=== PATIENT | female | born 1955 | race Caucasian/White ===

== ENCOUNTER → 2024-03-31 12:54 | Outpatient (REF) | payer MEDICARE, SELFPAY | LOC: RAD 12:54 | PROVIDERS: ATTENDING PHYSICIAN Surgery Vascular Surgery; FAMILY PHYSICIAN Family Medicine | DX: I73.9 Peripheral vascular disease, unspecified (principal) | CPT/HCPCS: 93880; 93922; 93925; 93978 ==

== ENCOUNTER → 2024-05-11 13:12 | Outpatient (REF) | payer MEDICARE, SELFPAY | LOC: WDC 13:12 | PROVIDERS: ATTENDING PHYSICIAN Family Medicine | DX: Z12.31 Encounter for screening mammogram for malignant neoplasm of breast (principal) | CPT/HCPCS: 77063; 77067 ==

== ENCOUNTER 2024-05-19 23:49 | Inpatient (IN) | payer MEDICARE, SELFPAY ==
[2024-05-19 15:46] VITALS: BP 140/53
--- NOTE | 2024-05-19 17:02 | ED.GENMED ---
History of Present Illness
General
Chief Complaint: Bowel Problem
Source: patient and family
Exam Limitations: none
Time Seen by Provider: 05/19/24 16:38
Nursing documentation reviewed up to this point in time: agreed with
History of Present Illness
History of Present Illness:
Patient is a 68-year-old female past medical history of COPD anemia CAD hyperlipidemia, anemia right femoral indirect ring presents to the ER for evaluation of constipation. She reports for the past several days she has had a lot of hard stool.
She felt like there was a baseball sized amount of stool in her rectum. She has taken Ducolax and Metamucil and has been passing small amount of stool at time and in fact prior to my exam past hard stool in the bathroom here in the ER. She does
report that last night she noticed her stools with very dark. She is on Xarelto. She denies any nausea but does complain abdominal pain and soreness in her rectum.
Review of Systems
Review of Systems
Allergies reviewed?: Yes
All Other Systems: ROS reviewed and negative except as documented in HPI and ROS
Constitutional: Reports no symptoms; Denies fever, fatigue or chills
EENT: Reports no symptoms
Respiratory: Reports no symptoms
Cardiac: Reports no symptoms
ABD/GI: Reports abdominal pain and constipated; Denies nausea or vomiting
: Reports no symptoms
Musculoskeletal: Reports no symptoms
Skin: Reports no symptoms
Neurological: Reports no symptoms
Psychiatric: Reports no symptoms
Phy Exam
General Physical Exam
General Presentation: well appearing
General age: appears stated age
General Skin: warm and dry
General Habitus: normal
General Mental: alert
General Hydration: appears well hydrated
Cardiovascular Exam
Cardiovascular Exam: regular rate/rhythm, no murmur and normal peripheral pulses
Pulmonary Exam
Pulmonary Exam: lungs clear and no respiratory distress
Gastrointestinal Exam
Gastrointestinal Exam: soft and other (Nonspecific abdominal tenderness on exam patient has several external hemorrhoids, dark stool heme positive small amt of liquid stool in rectum no hard stool palpated )
Neurological Exam
Neurological Exam: alert and oriented x3
Musculoskeletal Exam
Musculoskeletal Exam: full ROM
Skin Exam
Skin Exam: normal color and warm/dry
Psychiatric Exam
Psychiatric Exam: normal mood/affect
Course
Orders/Labs/Results
Orders:
Orders
05/19/24 17:12
IV Insert/Care/Rem.- Treatment PRN
Iohexol [Omnipaque] See Protocol PO NOW STA
05/19/24 17:13
CT Abd/pel W Iv And Oral Contr Urgent
Comment:
Reason For Exam: abd pain constipation
05/19/24 17:15
Diphenhydramine [Benadryl] 50 mg IV NOW STA
Hydrocortisone Sod Succinate [Solu-Cortef] 200 mg IV NOW STA
05/19/24 18:03
Complete Blood Count/With Diff Urgent
Comprehensive Metabolic Panel Urgent
Lipase Urgent
05/19/24 19:36
Diphenhydramine [Benadryl] 50 mg .ROUTE .STK-MED ONE
MethylPREDNISolone PF [Solu-Medrol Pf] 125 mg .ROUTE .STK-MED ONE
05/19/24 19:39
MethylPREDNISolone PF [Solu-Medrol Pf] 125 mg .ROUTE .STK-MED ONE
05/19/24 19:46
Hydrocortisone Sod Succinate [Solu-Cortef] 200 mg .ROUTE .STK-MED ONE
Abnormal Lab Results
05/19/24
18:03
WBC 14.5 H 10^3/uL
(4.8-10.8)
RBC 3.35 L 10^6/uL
(4.20-5.40)
Hgb 11.5 L g/dL
(12.0-16.0)
Hct 32.2 L %
(37.0-47.0)
MCH 34.3 H pg
(27.0-31.0)
Abs Immat Gran (auto) 0.1 H 10^3/uL
(0-0.05)
Absolute Neuts (auto) 12.6 H 10^3/uL
(1.4-6.5)
Absolute Lymphs (auto) 0.9 L 10^3/uL
(1.2-3.4)
Absolute Monos (auto) 1.0 H 10^3/uL
(0.1-0.6)
Neutrophils % 86.6 H %
(42.2-75.2)
Lymphocytes % 6.1 L %
(20.5-51.1)
Sodium 125 L mmol/L
(135-145)
Chloride 96 L mmol/L
(98-107)
BUN 30 H mg/dl
(7-17)
Creatinine 1.2 H mg/dL
(0.6-1.0)
Glucose 102 H mg/dl
(70-99)
Total Protein 6.0 L g/dl
(6.3-8.2)
Albumin 3.4 L g/dl
(3.5-5.0)
05/19/24 18:03
05/19/24 18:03
Vital Signs
Initial and Last Documented VS:
Initial Vital Signs
Temp Pulse Resp BP Pulse Ox
98.0 F 82 16 140/53 97
05/19/24 15:46 05/19/24 15:46 05/19/24 15:46 05/19/24 15:46 05/19/24 15:46
Last Documented Vital Signs
Temp Pulse Resp BP Pulse Ox
98.0 F 82 16 140/53 96
05/19/24 15:46 05/19/24 15:46 05/19/24 15:46 05/19/24 15:46 05/19/24 19:05
MDM/Problems Addressed
Differential Diagnosis Includes:
not limited to: Stool impaction, constipation, hemorrhoids, GI bleed
MDM/Problems Addressed:
Patient is a 68 year-old female who presents with constipation, rectal pain abdominal pain. She also noted some dark stools. She is on Xarelto. Pt did have bowel movement prior to me examining her. On exam abdomen soft nonspecific tenderness,
mild. Rectal exam done no impaction ; small mount of dark stool on exam + ext hemorrhoids. CAT scan was done for evaluation of abdominal pain and is limited however extensive widespread colonic stool no intestinal obstruction or free air.
Labs reviewed white count is mildly elevated however no complaints of infection patient is afebrile hemoglobin is stable at 11.5. Patient sodium is at 125. With dark stools on xarelto/ and hyponatremia will adm . Pt is on lasix prn
Chronic conditions affecting care:
copd cad htn hyperlipidemia
*Radiology
Radiology exam reviewed: radiology read reviewed
*Pulse Oximetry
Patient hypoxic: no
*Critical Care Note
Total Time (30-74mins, 75-104mins- exclusive of procedures): Not Applicable
ED Attending Note
-
Portions of this chart may have been created with voice recognition software.� Occasional wrong word or��sound alike� substitutions may have occurred due to the inherent limitations of voice recognition software.
Discharge Plan
Departure
Patient Disposition: Admit
Date of Disposition: 05/19/24
Time of Disposition: 22:28
Admit to: Med/Surg
Admit to doctor: hospitalist
Presentation/result/management discussed w/ accepting MD/DO: Hospitalist
Covid-19: Not Applicable
Discharge Problem:
Acute constipation, Heme positive stool, Acute hyponatremia
Prescriptions:
No Action
ascorbic acid (vitamin C) [Vitamin C] 1,000 mg Tablet
1 g PO BID
clonidine HCl 0.1 mg Tablet
0.1 mg PO BID
ipratropium-albuterol 0.5 mg-3 mg(2.5 mg base)/3 mL Solution For Nebulization
3 ml INHALATION BID
aspirin [Ruby Low Dose Aspirin] 81 mg Tablet,Delayed Release (Dr/Ec)
81 mg PO BID
pantoprazole 40 mg Tablet,Delayed Release (Dr/Ec)
40 mg PO BID
candesartan 16 mg Tablet
16 mg PO DAILY
budesonide 0.5 mg/2 mL Suspension For Nebulization
0.5 mg INHALATION BID
rosuvastatin 20 mg Tablet
20 mg PO DAILY
Fruit and Vegetable Daily 5-6-150 mg Capsule
1 cap PO DAILY
cholecalciferol (vitamin D3) [Vitamin D3] 50 mcg (2,000 unit) Capsule
50 mcg PO DAILY
psyllium husk [Metamucil] 0.4 gram Capsule
0.4 g PO Q48H
EB-N5 DR 35 mg-3 mg- 2 mg-62.5 mcg Capsule,Delayed Release(Dr/Ec)
1 cap PO BID
acetaminophen 500 mg Tablet
1,000 mg PO BID
ferrous sulfate [iron] 325 mg (65 mg iron) Tablet
325 mg PO DAILY
Xarelto 2.5 mg Tablet
2.5 mg PO BID Qty: 90 0RF
oxycodone 5 mg Tablet
5 mg PO Q4HPRN PRN (Reason: moderate pain) Qty: 7 0RF
lorazepam 1 mg Tablet
1 mg PO TID PRN (Reason: anxiety/sleep) Qty: 6 0RF
pregabalin 50 mg Capsule
50 mg PO BID Qty: 4 0RF
Referrals:
Jose Lockhart DO [Family Provider] -
Interventions
Interventions:
*Risk Screen - Suicide Last Done: 05/19/24 19:05
*General Assessment Last Done: 05/19/24 19:05
*Neglect/Abuse Screening Last Done: 05/19/24 19:05
ED- Fall Risk Assessment Last Done: 05/19/24 19:05
*ED COVID-19 Vaccine History Last Done: 05/19/24 19:05
YG-Vuccuz-Rgnipkcxrm Assessment Last Done: 05/19/24 19:05
Discharge Date and Time
Print Language: RUSSIAN
[2024-05-19] MEDS: OMNIPAQUE 50 ML PO (17:59)
[2024-05-19 18:10] LABS: % Basophils 0.2 % (0-2); % Eosinophils 0.1 % (0-6); % Immature Granulocytes 0.3 % (0-0.5); % Lymphocytes 6.1 % (20.5-51.1); % Monocytes 6.7 % (1.7-9.3); % Neutrophils 86.6 % (42.2-75.2); Absolute Immature Granulocytes 0.1 10^3/uL (0-0.05); Absolute Lymphocytes 0.9 10^3/uL (1.2-3.4); Absolute Neutrophils 12.6 10^3/uL (1.4-6.5); Hematocrit 32.2 % (37.0-47.0); Hemoglobin 11.5 g/dL (12.0-16.0); Mean Corp Hgb Conc. 35.7 g/dL (33.0-37.0); Mean Corpuscular Hgb 34.3 pg (27.0-31.0); Mean Corpuscular Volume 96.1 fL (81.0-99.0); Mean Platelet Volume 10.1 fL (7.4-10.4); Nucleated Red Blood Cells % 0 %; Platelet Count 228 10^3/uL (130-400); Red Blood Cell Count 3.35 10^6/uL (4.20-5.40); Red Cell Dist. Width 12.7 % (11.5-14.5); White Blood Cell Count 14.5 10^3/uL (4.8-10.8)
[2024-05-19 18:37] LABS: ALT (SGPT) 17 U/L (0-35); AST (SGOT) 36 U/L (14-36); Albumin 3.4 g/dl (3.5-5.0); Alkaline Phosphatase 62 U/L (38-126); Blood Urea Nitrogen 30 mg/dl (7-17); Calcium 9.3 mg/dl (8.4-10.2); Carbon Dioxide 24 mmol/L (22-30); Chloride 96 mmol/L (98-107); Glucose 102 mg/dl (70-99); Lipase 94 U/L (23-300); Potassium 4.2 mmol/L (3.5-5.1); Sodium 125 mmol/L (135-145); Total Bilirubin 0.8 mg/dl (0.2-1.3)
[2024-05-19 19:05] VITALS: BMI 21.2
[2024-05-19 19:30] VITALS: BP 142/62
[2024-05-19] MEDS: SOLU-CORTEF 200 MG IV (19:47)
[2024-05-19] MEDS: BENADRYL 50 MG IV (19:47)
[2024-05-19 21:30] VITALS: BP 138/58
[2024-05-19] MEDS: VENTOLIN NEBULES 2.5 MG INH (23:07)
[2024-05-19 23:08] LABS: Osmolality Serum 267 mOsm/kg (275-300)
--- NOTE | 2024-05-19 23:17 | W.PN.UPDATE ---
Update Note
Progress Note Update
This is an addendum to the H&P written by Christiane Anaya on 05/19/2024.� Patient seen examined independently with PA.
68-year-old female past medical history of hypertension, hyperlipidemia, CAD, SVT, anemia, COPD, peripheral vascular disease status post right iliac angioplasty/stent/femoral endartectomy on Xarelto, neuropathy presenting with constipation, dark
stools, rectal pain and abdominal pain.� Rectal exam showed external hemorrhoids, dark heme positive stool, no palpable hard stool.
CT abdomen pelvis shows extensive widespread colonic stool without obstruction or free air.
Labs show worsening of chronic hyponatremia with sodium of 125.
Hemoglobin of 11.5 actually pretty good compared to recent hemoglobins as low as 7.9.� Suspect black stools secondary to severe constipation.� Patient on iron supplement.� Vita citrate and liekly require Milk of molasses enema if no improvement.�
Continue Metamucil, add MiraLAX, lactulose to Dulcolax. Hold Xarelto.�
Hyponatremia possibly secondary to SIADH.� Check urine sodium, osmolality.� Fluid restriction 40 ounces.
--- NOTE | 2024-05-19 23:20 | HPS.HSE ---
Family Physician
-
Family Physician: Jose Lockhart
Chief Complaint
-
Abdominal Pain and Constipation
History of Present Illness
Pt is 68 yo F with PMH ASCVD, COPD, and Hypertension presents c/o constipation x 1 day. Pt describes 'baseball-sized stool in rectum' and she is having difficulty passing with associated abdominal pain. Pt admits to taking 3 doses of Dulcolax and
Metamucil yesterday with no significant relief. Pt admits to passing multiple, small sized stools today after significant straining. She noticed darker stool and admits 1-2 episodes of bright red blood she attributed to straining. She denies
increased fluid intake; drinks roughly 48 oz regularly. Pt denies fever, nausea, vomiting, dysuria, urgency, frequency, and incontinence. Patient last colonoscopy in 2021 which she reports was normal.
Medical History
Past Medical History
Past Medical History: Reports Other
Additional Past Medical History:
Peripheral Arterial Disease s/p Right Iliac Stent, and Right Femoral Endarterectomy
Coronary Artery Disease
SVT
Essential Hypertension
Hyperlipidemia
Chronic Hyponatremia
COPD
Anxiety/Depression/Insomnia'
Past Surgical History: Reports Other
Additional Past Surgical History:
Right Femoral Endarterectomy
Right Iliac Stent
Social History
Tobacco: Smoker
Family History
Family History: Not pertinent
Allergies / Home Medications
Allergies reflects when Allergies were last updated in [facility].
Home Medications with original date entered in [facility]
Allergy/Medication List:
Allergies
Allergy/AdvReac Type Severity Reaction Status Date / Time
amlodipine Allergy Rash Verified 05/19/24 15:42
Cephalosporins Allergy Rash Unverified 05/19/24 15:42
duloxetine [From Cymbalta] Allergy Rash Verified 05/19/24 15:42
escitalopram Allergy Rash Verified 05/19/24 15:42
hydroxychloroquine Allergy Unknown Verified 05/19/24 15:43
[From Plaquenil]
Iodinated Contrast Media Allergy Rash Verified 05/19/24 15:42
penicillin V Allergy Rash Unverified 05/19/24 15:42
Penicillins Allergy Rash Unverified 05/19/24 15:42
prednisone Allergy Rash Verified 05/19/24 15:42
varenicline [From Chantix] Allergy nausea, Verified 05/19/24 15:42
vomiting,
diarrhea
Home Medications
aspirin 81 mg tablet,delayed release (Ruby Low Dose Aspirin) 81 mg PO BID Blood clot prevention/tx 01/06/23
budesonide 0.5 mg/2 mL suspension for nebulization 0.5 mg inhalation BIDPRN PRN sob/wheezing 01/06/23
clonidine HCl 0.1 mg tablet 0.1 mg PO BID Blood pressure 01/06/23
ipratropium 0.5 mg-albuterol 3 mg (2.5 mg base)/3 mL nebulization soln 3 ml inhalation BID Lung/breathing issues 01/06/23
uyjdjjtl-eevenj-prsvx extract 5 mg-6 mg-150 mg capsule (Fruit and Vegetable Daily) 1 cap PO DAILY Supplement 01/06/23
pantoprazole 40 mg tablet,delayed release 40 mg PO BID Gastrointestinal issue 01/06/23
psyllium husk 0.4 gram capsule (Metamucil) 0.4 g PO Q48H Constipation 01/06/23
rosuvastatin 20 mg tablet 20 mg PO DAILY High cholesterol 01/06/23
pregabalin 50 mg capsule 50 mg PO BID Pain #4 caps 02/07/23
rivaroxaban 2.5 mg tablet (Xarelto) 2.5 mg PO BID #90 tabs 02/07/23
bisacodyl 5 mg tablet,delayed release (Dulcolax (bisacodyl)) 5 - 10 mg PO BIDPRN PRN constipation 05/19/24
candesartan 32 mg tablet 32 mg PO DAILY 05/19/24
furosemide 20 mg tablet 20 mg PO DAILYPRN PRN swelling/edema 05/19/24
lorazepam 1 mg tablet 1 mg PO TIDPRN PRN anxiety/sleep 05/19/24
tiotropium bromide 1.25 mcg/actuation mist for inhalation (Spiriva Respimat) 2 puff inhalation R DAILY 05/19/24
Review of Systems
-
A 12 point ROS was completed and negative except as noted: Yes
Constitutional: Denies Fever or Chills
Respiratory: Denies Cough or Trouble Breathing
Cardiac: Denies Chest Pain or Palpitations
Abdomen/GI: Reports See HPI
Physical Exam
Vital Signs
Vital Signs
Temp Pulse Resp BP Pulse Ox
98.0 F 82 16 140/53 96
05/19/24 15:46 05/19/24 15:46 05/19/24 15:46 05/19/24 15:46 05/19/24 19:05
Physical Exam
General: Comfortable and Conversant
HEENT: Anicteric and Moist mucous membranes
Respiratory: Clear and Non Labored Respirations
Cardiac: S1/S2 and Regular Rhythm
GI: Soft, Tender (Lower regions, with voluntary guarding in suprapubic and right lower quadrant) and Distended
Rectal: Hem Positive (Per ED Provider)
Musculoskeletal: No Clubbing, No Cyanosis and No Edema
Skin: Warm and Dry
Neuro: Awake, Alert, Oriented and Nonfocal/grossly intact
Psych: Calm
Laboratory Results
-
05/19/24 18:03
05/19/24 18:03
Laboratory Results
Total Bilirubin 0.8 mg/dl (0.2-1.3) 05/19/24 18:03
AST 36 U/L (14-36) 05/19/24 18:03
ALT 17 U/L (0-35) 05/19/24 18:03
Alkaline Phosphatase 62 U/L (38-126) 05/19/24 18:03
Lipase 94 U/L (23-300) 05/19/24 18:03
Data Reviewed
-
CT Scan: Report Reviewed by me
Lab Data: Labs Reviewed by me
Impression/Plan
-
Acute on Chronic Hyponatremia
-Check urine sodium, urine osmo, and serum osmo
-Start oral fluid restriction
Acute Constipation
-Give dose of Mag Citrate Now
-Plan for Milk and Molasses in AM
-Start Lactulose 30mL BID
Heme-Positive Stool, does not appear to have active GI Bleed
-Hgb stable and significant improved compared to prior
-Monitor Hgb
-Continue to heme-test stool
-Hold Xarelto for now
ASCVD s/p Right Iliac Stent, and Right Femoral Endarterectomy
-Continue aspirin
Essential Hypertension
-Continue candesartan and clonidine
Hyperlipidemia
-Continue Crestor
COPD, no acute exacerbation
-Continue budesonide
Anxiety/Depression/Insomnia
-Continue lorazepam as neede
GERD
-Continue Protonix
Tobacco Use Disorder
-Encourage smoking cessation
-Patient declined nicotine patch
-Offer Nicorette gum as needed
DVT proph: SCDs
Code Status: Full Code
[2024-05-20 01:25] VITALS: BP 169/73; BMI 19.2
[2024-05-20] MEDS: CITROMA 300 ML PO (02:08)
--- NOTE | 2024-05-20 02:45 | PTCARENOTE ---
Pt received from ED at 0120. Pt refused enema, educated pt on importance of enema. Patient receptive to self and room. Call woods within reach.
[2024-05-20 03:10] LABS: Osmolality Urine 154 mOsm/kg (300-900); Urine Albumin 2+ (Neg - Trace); Urine Bilirubin Negative (Negative); Urine Character Clear (Clear); Urine Color Yellow; Urine Glucose Negative (Negative); Urine Ketone Negative (Negative); Urine Leukocyte Negative (Negative); Urine Nitrite Negative (Negative); Urine Occult Blood Negative (Negative); Urine Specific Gravity 1.005 (<1.030); Urine Urobilinogen Negative (Neg - 1+)
[2024-05-20 03:17] LABS: Urine Sodium 14 mmol/L (30-90)
[2024-05-20 03:19] LABS: Urine Bacteria Few (Negative); Urine Red Blood Cell 0-2 /HPF (0-2); Urine White Cell 0-2 /HPF (0-5)
[2024-05-20 06:00] VITALS: BMI 19.2
[2024-05-20 07:15] VITALS: BP 132/70
[2024-05-20] MEDS: DUPHALAC/CHRONULAC PO ×2 (07:53→08:08)
[2024-05-20] MEDS: CRESTOR 20 MG PO (07:54)
[2024-05-20] MEDS: ASPIR LOW (ENTERIC COATED) 81 MG PO ×2 (07:54→20:02)
[2024-05-20] MEDS: PROTONIX 40 MG PO ×2 (07:54→20:02)
[2024-05-20] MEDS: ATACAND 32 MG PO (07:55)
[2024-05-20] MEDS: CATAPRES 0.1 MG PO ×2 (07:55→20:03)
[2024-05-20] MEDS: NICORETTE 2 MG PO (07:55)
[2024-05-20] MEDS: LYRICA 50 MG PO ×2 (08:02→20:01)
[2024-05-20 08:38] LABS: Hematocrit 37.6 % (37.0-47.0); Hemoglobin 13.4 g/dL (12.0-16.0); Mean Corp Hgb Conc. 35.6 g/dL (33.0-37.0); Mean Corpuscular Hgb 34.8 pg (27.0-31.0); Mean Corpuscular Volume 97.7 fL (81.0-99.0); Mean Platelet Volume 10.2 fL (7.4-10.4); Platelet Count 224 10^3/uL (130-400); Red Blood Cell Count 3.85 10^6/uL (4.20-5.40); Red Cell Dist. Width 12.9 % (11.5-14.5); White Blood Cell Count 9.9 10^3/uL (4.8-10.8)
[2024-05-20] MEDS: PULMICORT 0.5 MG INH ×2 (09:02→20:10)
[2024-05-20] MEDS: DUONEB 3 ML INH ×2 (09:03→20:10)
[2024-05-20 09:10] LABS: Blood Urea Nitrogen 29 mg/dl (7-17); Carbon Dioxide 18 mmol/L (22-30); Chloride 99 mmol/L (98-107); Estimated Creatinine Clearance 26 ml/min; Glucose 125 mg/dl (70-99); Magnesium 3.2 mg/dl (1.6-2.3); Potassium 4.3 mmol/L (3.5-5.1); Sodium 128 mmol/L (135-145); eGFR 44.24
--- NOTE | 2024-05-20 11:52 | W.PN.HOSP.TC ---
Today's Communication/Plan
-
Start IV fluids, repeat BMP in the morning
Monitor for bloody bowel movements, repeat CBC in morning
Resume regular diet
Assessment / Plan
Assessment / Plan
#Acute on Chronic hypovolemic hyponatremia -- suspect chronically poor intake
-Sodium baseline is in the low 130s, sodium was 125 on arrival; patient states she does not drink much water or eat a lot
-Urine studies on arrival are consistent with hypovolemic etiology, serum Osm > urine Osm and Bon < 20
-Overnight her sodium did improve slightly from 125-128 on morning labs
-Start IV maintenance fluids, discontinue oral water restriction
-Trend daily BMP, goal correction 6 to 8 mEq/day
#Acute Constipation -- large size stool bolus in rectal vault, has since passed
#Heme positive stool -- suspect this could be related to severe constipation, possibly hemorrhoids
-Low suspicion for true GI bleeding, Xarelto currently held, CBC stable
-Will resume Xarelto today, monitor CBC overnight for stability
#PAD s/p Right Iliac Stent and Right Femoral Endarterectomy
#HLD
-Home medications include high intensity statin, low-dose Xarelto twice daily, aspirin
-No signs of worsening or critical limb ischemia today
#Essential Hypertension
-Home medications include candesartan and clonidine, on Lasix as well
-No known history of hypertensive systemic disease
-Blood pressure currently well-controlled
#COPD no acute exacerbation
-Home medications include budesonide, DuoNebs, Spiriva
-No signs of worsening hypercapnia or exacerbation
#GERD
-No known history of PE or erosive disease, currently on twice daily PPI
-No red flag symptoms today, no indications for more invasive testing here
#Anxiety/Depression/Insomnia
-Continue lorazepam as neede
#Tobacco Use Disorder
-Encourage smoking cessation
-Offer Nicorette gum as needed
DVT proph: SCDs
Code Status: Full Code
Diet: Resume house
Anticipated Discharge: Within 24 hours
Subjective/Interval History
-
Date of Service: May 20, 2024
Seen and examined at bedside. She feels much better this morning, was able to have a bowel movement. Per her history, it was a very large size bowel movement. Following that she has had soft to liquidy stools. Denies any fevers or chills, denies
abdomen pain, denies urinary issues, chest pain or shortness of breath.
In regards to the potential bleed, she did notice a dark stool within the last day or 2 however she does take oral iron for anemia. Has not had recurrence of nosebleeds or any melena since initial Hemoccult at admission.
Objective Data
-
Labs:
Laboratory Results
05/20/24
08:04
WBC 9.9
Hgb 13.4
Hct 37.6
Plt Count 224
Sodium 128 L
Potassium 4.3
Chloride 99
Carbon Dioxide 18 L
BUN 29 H
Creatinine 1.3 H
Glucose 125 H
Calcium 10.0
Vital Signs:
Vital Signs
Temp Pulse Resp BP Pulse Ox
97.8 F 91 19 132/70 95
05/20/24 07:15 05/20/24 09:08 05/20/24 09:08 05/20/24 07:15 05/20/24 09:08
Review of Systems
-
History Source: Patient
All other systems: Reviewed and negative
Physical Exam
-
General: No Apparent Distress, Comfortable and Other (Thin female)
HEENT: Normocephalic, Atraumatic, Moist Mucous Membranes and Anicteric
Respiratory: Clear to Auscultation and Non Labored Respirations
Cardiac: Regular Rhythm and S1/S2
GI: Soft, Nontender, Nondistended and Normal Bowel Sounds
Musculoskeletal: No Clubbing, No Cyanosis and No Edema
Skin: Warm and Dry; Negative Rash
Neuro: AO x 3, Nonfocal/Grossly Intact and Central Nerve's Intact
Data Reviewed
-
Labs: Labs Reviewed by me and Discussed with Patient
[2024-05-20] MEDS: NSS 1000 IV (12:19)
--- NOTE | 2024-05-20 14:43 | CM ---
Patient seen at bedside. IA completed.
Dx: hyponatremia
PMH: COPD, anemia, ASCVD, HTN
Patient lives in a 2 story home with her .
2 steps to enter.
PLOF: Independent & driving
DME: walker, stair lift, nebulizer, shower chair
PCP: DR. Jose Lockhart
[facility]
PLAN: Discharge when stable. No needs anticipated.
[2024-05-20 15:56] VITALS: BP 162/75
[2024-05-20 18:44] LABS: Blood Urea Nitrogen 35 mg/dl (7-17); Calcium 9.1 mg/dl (8.4-10.2); Carbon Dioxide 23 mmol/L (22-30); Chloride 99 mmol/L (98-107); Estimated Creatinine Clearance 24 ml/min; Glucose 142 mg/dl (70-99); Potassium 3.7 mmol/L (3.5-5.1); Sodium 128 mmol/L (135-145); eGFR 40.47
[2024-05-20] MEDS: XARELTO 2.5 MG PO (20:02)
[2024-05-20] MEDS: DUPHALAC/CHRONULAC 20 GRAMS PO (20:05)
[2024-05-20 23:00] VITALS: BP 134/51
[2024-05-21] MEDS: ATIVAN 1 MG PO (00:41)
[2024-05-21] MEDS: NSS 1000 IV (02:44)
[2024-05-21 06:00] VITALS: BMI 19.3
[2024-05-21] MEDS: DUONEB 3 ML INH (07:22)
[2024-05-21] MEDS: PULMICORT 0.5 MG INH (07:22)
[2024-05-21 07:30] VITALS: BP 129/57
[2024-05-21] MEDS: XARELTO 2.5 MG PO (09:08)
[2024-05-21] MEDS: ASPIR LOW (ENTERIC COATED) 81 MG PO (09:08)
[2024-05-21] MEDS: PROTONIX 40 MG PO (09:08)
[2024-05-21] MEDS: CATAPRES 0.1 MG PO (09:08)
[2024-05-21] MEDS: ATACAND 32 MG PO (09:08)
[2024-05-21] MEDS: DUPHALAC/CHRONULAC PO (09:09)
[2024-05-21] MEDS: LYRICA 50 MG PO (09:09)
[2024-05-21] MEDS: CRESTOR 20 MG PO (09:09)
[2024-05-21 10:03] LABS: % Basophils 0.4 % (0-2); % Eosinophils 1.4 % (0-6); % Immature Granulocytes 0.3 % (0-0.5); % Lymphocytes 17.6 % (20.5-51.1); % Neutrophils 72.3 % (42.2-75.2); Absolute Eosinophils 0.1 10^3/uL (0-0.7); Absolute Lymphocytes 1.6 10^3/uL (1.2-3.4); Absolute Monocytes 0.7 10^3/uL (0.1-0.6); Absolute Neutrophils 6.5 10^3/uL (1.4-6.5); Hematocrit 33.9 % (37.0-47.0); Hemoglobin 12.3 g/dL (12.0-16.0); Mean Corp Hgb Conc. 36.3 g/dL (33.0-37.0); Mean Corpuscular Hgb 34.7 pg (27.0-31.0); Mean Corpuscular Volume 95.8 fL (81.0-99.0); Mean Platelet Volume 10.1 fL (7.4-10.4); Nucleated Red Blood Cells % 0 %; Platelet Count 225 10^3/uL (130-400); Red Blood Cell Count 3.54 10^6/uL (4.20-5.40); Red Cell Dist. Width 12.9 % (11.5-14.5)
--- NOTE | 2024-05-21 10:41 | W.PN.HOSP.TC ---
Addendum entered and electronically signed by Rene Hinds DO 06/03/24 14:13:
CDI clarification: Creatinine increased from 1.2-1.5. Has degree of CKD with creatinine baseline near 1.2-1.3. Elevated serum creatinine, does not meet criteria for FILIBERTO
Addendum entered and electronically signed by Rene Hinds DO 05/21/24 12:40:
CDI clarification: BMI 19, underweight but not cachectic. Thin habitus. Noncontributory to presentation
Original Note:
Today's Communication/Plan
-
Follow-up morning BMP
Discharge if sodium improving/stable
Assessment / Plan
Assessment / Plan
#Acute on Chronic hypovolemic hyponatremia -- suspect chronically poor intake
-Sodium baseline is in the low 130s, sodium was 125 on arrival; patient states she does not drink much water or eat a lot
-Urine studies on arrival are consistent with hypovolemic etiology, serum Osm > urine Osm and Bon < 20
-Overnight her sodium did improve slightly from 125-128 on morning labs
-Start IV maintenance fluids, discontinue oral water restriction
-Trend daily BMP, goal correction 6 to 8 mEq/day
-Follow-up morning BMP
#Acute Constipation -- large size stool bolus in rectal vault, has since passed
#Heme positive stool -- suspect this could be related to severe constipation, possibly hemorrhoids
-Low suspicion for true GI bleeding, Xarelto currently held, CBC stable
-Will resume Xarelto today, monitor CBC overnight for stability
-Resolved
#PAD s/p Right Iliac Stent and Right Femoral Endarterectomy
#HLD
-Home medications include high intensity statin, low-dose Xarelto twice daily, aspirin
-No signs of worsening or critical limb ischemia today
#Essential Hypertension
-Home medications include candesartan and clonidine, on Lasix as well
-No known history of hypertensive systemic disease
-Blood pressure currently well-controlled
#COPD no acute exacerbation
-Home medications include budesonide, DuoNebs, Spiriva
-No signs of worsening hypercapnia or exacerbation
#GERD
-No known history of PE or erosive disease, currently on twice daily PPI
-No red flag symptoms today, no indications for more invasive testing here
#Anxiety/Depression/Insomnia
-Continue lorazepam as neede
#Tobacco Use Disorder
-Encourage smoking cessation
-Offer Nicorette gum as needed
DVT proph: SCDs
Code Status: Full Code
Diet: Resume house
Anticipated Discharge: Today
Subjective/Interval History
-
Date of Service: May 21, 2024
No acute events, seen and examined at bedside. States she feels good today, questions when she can leave the hospital. She denies any recurrent constipation since she had her bowel movement yesterday morning. Subsequent diarrhea has since
resolved as well. She denies any signs of bleeding or melena in her stool. Denies chest pain, shortness of breath, fevers or chills, nausea, vomiting, diarrhea, paresthesias, abdomen pain.
Objective Data
-
Labs:
Laboratory Results
05/21/24
09:34
WBC 9.0
Hgb 12.3
Hct 33.9 L
Plt Count 225
Sodium Pending
Potassium Pending
Chloride Pending
Carbon Dioxide Pending
BUN Pending
Creatinine Pending
Glucose Pending
Calcium Pending
Vital Signs:
Vital Signs
Temp Pulse Resp BP Pulse Ox
97.8 F 70 18 129/57 94
05/21/24 07:30 05/21/24 09:08 05/21/24 07:30 05/21/24 09:08 05/21/24 07:30
I&O
05/20/24 05/21/24 05/22/24
06:59 06:59 06:59
Intake Total 960 / 960
Balance 960 / 960
Review of Systems
-
History Source: Patient
All other systems: Reviewed and negative
Physical Exam
-
General: No Apparent Distress, Comfortable, Conversant and Other (Thin female)
HEENT: Normocephalic, Atraumatic, Moist Mucous Membranes and Anicteric
Respiratory: Clear to Auscultation and Non Labored Respirations
Cardiac: Regular Rhythm and S1/S2; Negative Murmur, Rub, JVD or Gallop
GI: Soft, Nontender, Nondistended and Normal Bowel Sounds
Musculoskeletal: No Clubbing, No Cyanosis and No Edema
Skin: Warm and Dry; Negative Rash or Jaundice
Neuro: AO x 3, Nonfocal/Grossly Intact and Central Nerve's Intact; Negative Tremors
Data Reviewed
-
Labs: Labs Reviewed by me and Discussed with Patient
[2024-05-21 11:35] LABS: Blood Urea Nitrogen 32 mg/dl (7-17); Calcium 9.5 mg/dl (8.4-10.2); Carbon Dioxide 19 mmol/L (22-30); Chloride 104 mmol/L (98-107); Estimated Creatinine Clearance 23 ml/min; Glucose 96 mg/dl (70-99); Potassium 3.5 mmol/L (3.5-5.1); Sodium 131 mmol/L (135-145); eGFR 37.26
--- NOTE | 2024-05-21 12:15 | PN.CDI ---
CDI
- -
CDI:
Physician Documentation Request
Admit Date: 05/19/24 23:49
Dear Doctor Guzman,
Patient admitted for constipation.
Clinical Indicators:
Height: 4' 10'
Weight:92 lbs
BMI: 19.3
If possible, please provide an associated diagnosis related to the abnormal BMI, such as:
Underweight
Cachectic
Abnormal BMI is not significant
Other
BMI < or = to 19.9
Underweight
Weight Loss
Cachectic
Anorexia
Use of terms such as suspected, likely, concern for, or probable (associated with a specific diagnosis that is being evaluated, monitored, or treated as if it exists) are acceptable and can be coded in the inpatient setting, when documented at the
time of discharge.
Thank you,
Domenica Augustin RN, BSN
CDI Specialist
Available via [place] text
Please use your independent medical judgment in providing your response.
--- NOTE | 2024-05-21 12:19 | CM ---
Patient seen bedside.
Denies home care needs.
IMM completed.
Plan: home no needs.
[2024-05-21] MEDS: NSS IV (12:31)
--- NOTE | 2024-05-21 12:34 | W.DCSUMMARY ---
Discharge Summary
Discharge Data
Date of Admission: 05/19/24
Date of Discharge: 05/21/24
-
Pending Results: No
Hospital Course
Presented to the hospital with constipation and rectal fecal impaction. 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 Loose stools following initial bowel movement subsided. Discharge
recommendations for as needed bisacodyl/senna/MiraLAX if constipation recurs
Also had acute on chronic hyponatremia, initial sodium in the mid 120s. Improved with IV fluid, held home Lasix. Sodium on day of discharge was 132. Prescription for BMP in 5 days was given, results to be sent to primary care doctor. Held Lasix
at discharge until further evaluation with primary care.
Discharge Plan
-
Patient Disposition: Home (Routine Discharge)
Discharge Diagnosis/Procedures: Constipation
Hypovolemic hyponatremia
Condition: Good
Diet: No restrictions
Activity: As tolerated
Driving Restrictions: As prior to admission
Blood Work: BMP in 5 days to recheck serum sodium, have results sent to your family doctor
Specialty Instructions: Weigh Daily- Call MD for wt gain/loss 3 lbs overnight/5 lbs in 1 week
Instructions: Constipation in adults, Hyponatremia
Referrals:
Jose Lockhart DO [Family Provider] -
Prescriptions:
New
nicotine (polacrilex) 2 mg Gum
2 mg PO Q2HPRN PRN (Reason: nicotine cravings) 30 Days Qty: 40 0RF
Continued
clonidine HCl 0.1 mg Tablet
0.1 mg PO BID
ipratropium-albuterol 0.5 mg-3 mg(2.5 mg base)/3 mL Solution For Nebulization
3 ml INHALATION BID
aspirin [Ruby Low Dose Aspirin] 81 mg Tablet,Delayed Release (Dr/Ec)
81 mg PO BID
pantoprazole 40 mg Tablet,Delayed Release (Dr/Ec)
40 mg PO BID
budesonide 0.5 mg/2 mL Suspension For Nebulization
0.5 mg INHALATION BIDPRN PRN (Reason: sob/wheezing)
rosuvastatin 20 mg Tablet
20 mg PO DAILY
Fruit and Vegetable Daily 5-6-150 mg Capsule
1 cap PO DAILY
psyllium husk [Metamucil] 0.4 gram Capsule
0.4 g PO Q48H
Xarelto 2.5 mg Tablet
2.5 mg PO BID Qty: 90 0RF
pregabalin 50 mg Capsule
50 mg PO BID Qty: 4 0RF
Patient Comments:
05/19/2024: last filled 05/03/24, 60 tabs for 30 days from [facility]
candesartan 32 mg tablet
32 mg PO DAILY
bisacodyl [Dulcolax (bisacodyl)] 5 mg Tablet,Delayed Release (Dr/Ec)
5 - 10 mg PO BIDPRN PRN (Reason: constipation)
Spiriva Respimat 1.25 mcg/actuation mist
2 puff INHALATION R DAILY
lorazepam 1 mg tablet
1 mg PO TIDPRN PRN (Reason: anxiety/sleep)
Patient Comments:
05/19/2024: last filled 04/02/24, 90 tabs for 30 days from [facility]
Held
furosemide 20 mg tablet
20 mg PO DAILYPRN PRN (Reason: swelling/edema)
Hold Instructions: Until you see your family doctor
Discharge Orders:
Discharge Patient (As Directed); Ordered 05/21/24
Ordered By: Rene Hinds
Discharge Date and Time
Print Language: CA[place] ISLAND[place]
[2024-05-21 14:59] VITALS: BP 148/61
--- NOTE | 2024-05-24 07:49 | PN.CDI ---
CDI
- -
CDI:
Physician Documentation Request
Admit Date: 05/19/24 23:49
Dear Doctor Guzman,
Patient admitted for hyponatremia.
Laboratory Tests
05/19/24 05/21/24
18:03 09:34
Creatinine 1.2 H 1.5 H
Clarify which of the following accurately represents the patient's renal status:
FILIBERTO
Rise in creatinine only
Other
Criteria for FILIBERTO*
1 Increase in serum creatinine by > or = to 0.3 mg/dL (> or = to 26.5 micromol/L) within 48 hours, OR
2 Increase in serum creatinine to > or = to 1.5 times baseline, which is known or presumed to have occurred within 7 days, OR
3 Urine volume < 0.5 nL/kg/hour for six hours
Use of terms such as suspected, likely, concern for, or probable (associated with a specific diagnosis that is being evaluated, monitored, or treated as if it exists) are acceptable and can be coded in the inpatient setting, when documented at the
time of discharge.
Thank you,
Domenica Augustin RN, BSN
CDI Specialist
Available via [place] text
Please use your independent medical judgment in providing your response.
*Source: Kidney Disease: Improving Global Outcomes (KDIGO) 2012
== END 2024-05-21 15:01 | disposition home or self-care (01) | DRG 389 ==
LOC: 4 WEST ACU 23:49
PROVIDERS: Nurse Practitioner; Physician Assistant Medical; ADMITTING PHYSICIAN Hospitalist; ATTENDING PHYSICIAN Internal Medicine; EMERGENCY PHYSICIAN Emergency Medicine; FAMILY PHYSICIAN Family Medicine
DX: K56.41 Fecal impaction (principal); E87.1 Hypo-osmolality and hyponatremia; Z68.1 Body mass index [BMI] 19.9 or less, adult; J44.9 Chronic obstructive pulmonary disease, unspecified; I25.10 Atherosclerotic heart disease of native coronary artery without angina pectoris; R63.6 Underweight; E78.5 Hyperlipidemia, unspecified; I12.9 Hypertensive chronic kidney disease with stage 1 through stage 4 chronic kidney disease, or unspecified chronic kidney disease; N18.9 Chronic kidney disease, unspecified; I73.9 Peripheral vascular disease, unspecified; K21.9 Gastro-esophageal reflux disease without esophagitis; E86.1 Hypovolemia; F17.200 Nicotine dependence, unspecified, uncomplicated; Z79.82 Long term (current) use of aspirin; Z79.01 Long term (current) use of anticoagulants
CPT/HCPCS: 74177; 80048; 80053; 81003; 81015; 83690; 83735; 83930; 83935; 84300; 85025; 85027; 94640; 96374; 96375; 99285; Q9967

== ENCOUNTER → 2024-10-27 10:05 | Outpatient (REF) | payer MEDICARE, SELFPAY | LOC: RAD 10:05 | PROVIDERS: ATTENDING PHYSICIAN Surgery Vascular Surgery; FAMILY PHYSICIAN Family Medicine | DX: I73.9 Peripheral vascular disease, unspecified (principal) | CPT/HCPCS: 93922; 93925; 93978 ==

== ENCOUNTER → 2025-05-11 13:26 | Outpatient (REF) | payer MEDICARE, SELFPAY | LOC: RAD 13:26 | PROVIDERS: ATTENDING PHYSICIAN Surgery Vascular Surgery; FAMILY PHYSICIAN Family Medicine | DX: I73.9 Peripheral vascular disease, unspecified (principal) | CPT/HCPCS: 93978 ==

== ENCOUNTER → 2025-05-17 13:48 | Outpatient (REF) | payer MEDICARE, SELFPAY | LOC: RAD 13:48 | PROVIDERS: ATTENDING PHYSICIAN Surgery Vascular Surgery; FAMILY PHYSICIAN Family Medicine | DX: I73.9 Peripheral vascular disease, unspecified (principal) | CPT/HCPCS: 93922; 93925 ==

== ENCOUNTER 2025-06-01 17:17 | Inpatient (IN) | payer MEDICARE, SELFPAY ==
[2025-06-01 14:25] VITALS: BP 187/69
--- NOTE | 2025-06-01 15:19 | ED.GENMED ---
History of Present Illness
General
Chief Complaint: Fall
Source: patient and family
Time Seen by Provider: 06/01/25 15:10
History of Present Illness
History of Present Illness:
69-year-old female with past medical history of previous CVA, COPD, CAD, hypertension, hyperlipidemia, peripheral vascular and arterial disease presenting to the emergency department for evaluation after she had an accidental fall yesterday evening
stating she was trying to take her compression socks off when she fell forward landing on bilateral lower extremities, stated that she felt like she hit the left side harder but is only having pain on the right lower leg and having a difficult time
ambulating. Patient was brought to the ER by her who states that patient has been progressively worsening over the last few months in terms of her ability to ambulate and perform activities of daily living and that today she needed significant
assistance to help her get around. Patient is denying any headache, visual disturbances, focal weakness or numbness, chest pain or shortness of breath, abdominal pain, nausea, vomiting. Patient does take Xarelto daily secondary to her peripheral
arterial disease, previous CVA and CAD. She is declining anything for pain at this time.
Past History
Past History
ED Past Medical History: Arrthythmia, CAD, COPD, CVA, HTN and Hypercholesterolemia
ED Past Surgical History: and Other
Social History
Tobacco: Non-smoker
Alcohol: None
Drug: None
Personal:
Living: with family
Review of Systems
Review of Systems
All Other Systems: ROS reviewed and negative except as documented in HPI and ROS
Phy Exam
Physical Exam
Physical Exam:
GENERAL: Alert , in no apparent distress, appears older than stated age
HEAD: Normocephalic atraumatic
EYE: Clear conjunctiva
NECK: Supple, no midline tenderness
ENT: o/p clr, mmm.
CARDIAC: Regular rate and rhythm .
LUNGS: Clear breath sounds bilaterally, no acute respiratory distress, no wheezes/rales/rhonchi
ABDOMEN: Soft, without focal tenderness, no r/g, no cvat
NEUROLOGICAL: Alert and oriented,
SKIN: Warm and dry, skin intact.
MUSCULOSKELETAL: No edema, well perfused. No obvious deformity of the bilateral lower extremities, there does not appear to be any focal bony tenderness along RLE although patient only allows for minimal ROM from the knee proximal
PSYCH: Normal and appropriate interaction.
Scores
Heart Failure Risk
Heart Failure Risk Score: Not Applicable
Heart Score for Chest Pain Patients
STEMI patient?: Not applicable
Withdrawal Assessment of Alcohol
Withdrawal Assessment Completed?: Not applicable
Course
Orders/Labs/Results
Orders:
Orders
06/01/25 14:[address] [CT Head W/o Iv Contrast] Stat
Comment:
Reason For Exam: fall on thinners w/ head strike
06/01/25 15:18
Urinalysis Reflex To Culture Urgent
CR Hip - RT w/wo Pel 2-3 Vw* Urgent
Comment:
Reason For Exam: fall, pain
Include a pelvis x-ray?: Yes
CR Knee - Right 1 Or 2 Views Urgent
Reason For Exam: fall, pain- modified per protocol - patient cannot move alot
CR Leg Tibia/fibula Right 2 Vw Urgent
Comment:
Reason For Exam: fall, pain
06/01/25 16:01
Complete Blood Count/With Diff Urgent
Comprehensive Metabolic Panel Urgent
06/01/25 16:54
Add On- LAB Urgent
Tests Added?: b12 folate tsh with free t4 , mag , phos
Abnormal Lab Results
06/01/25
16:01
RBC 3.43 L 10^6/uL
(4.20-5.40)
Hgb 11.9 L g/dL
(12.0-16.0)
Hct 34.0 L %
(37.0-47.0)
MCV 99.1 H fL
(81.0-99.0)
MCH 34.7 H pg
(27.0-31.0)
Absolute Neuts (auto) 6.8 H 10^3/uL
(1.4-6.5)
Absolute Lymphs (auto) 0.6 L 10^3/uL
(1.2-3.4)
Absolute Monos (auto) 0.7 H 10^3/uL
(0.1-0.6)
Neutrophils % 83.8 H %
(42.2-75.2)
Lymphocytes % 7.0 L %
(20.5-51.1)
Sodium 129 L mmol/L
(135-145)
BUN 30 H mg/dl
(7-17)
Creatinine 1.4 H mg/dL
(0.6-1.0)
06/01/25 16:01
06/01/25 16:01
Vital Signs
Initial and Last Documented VS:
Initial Vital Signs
Temp Pulse Resp BP Pulse Ox
98.4 F 70 18 187/69 96
06/01/25 14:25 06/01/25 14:25 06/01/25 14:25 06/01/25 14:25 06/01/25 14:25
Last Documented Vital Signs
Temp Pulse Resp BP Pulse Ox
98.4 F 67 23 184/53 96
06/01/25 14:25 06/01/25 16:15 06/01/25 16:15 06/01/25 15:55 06/01/25 15:32
MDM/Problems Addressed
Differential Diagnosis Includes:
Contusion
Hematoma
Fracture
Intracranial bleeding
Exacerbation of chronic medical conditions
Electrolyte imbalance
Anemia
Medication interaction
MDM/Problems Addressed:
69-year-old female presenting to the ER for evaluation with sister after she sustained an accidental fall last night resulting in minor head injury. Patient on Xarelto. CT of the head ordered. Patient's bigger concern is pain to her right lower
extremity with inability to ambulate. Patient lives on her own, unable to range of motion her right lower extremity from the knee proximal secondary to pain but no focal bony tenderness. CT of the head had been ordered from triage. Will order
x-rays to further assess. Patient is declining anything for pain. Will order physical therapy consult as patient may be unable to be safely dispositioned home if she is unable to ambulate and may need short-term rehab/SNF.
*Radiology
Radiology exam reviewed: preliminary read by ED provider (Right femoral neck fracture) and radiology read reviewed (No acute intracranial pathology)
*Pulse Oximetry
SaO2: 96
Oxygen Mode of Delivery: Room air
Patient hypoxic: no
*Critical Care Note
Total Time (30-74mins, 75-104mins- exclusive of procedures): Not Applicable
Patient Management
Discussion with other providers: Hospitalist and Chief Gauger
Escalation/DeEscalation of care consider admission/obs:
Patient's x-ray of the hip/pelvis shows a nondisplaced fracture of the right femoral neck. Given this finding the imaging was sent to on-call orthopedics, Dr. Wright, hospitalist team was notified and will admit the patient. Patient currently on
Xarelto but remains hemodynamically stable. She continues to decline pain medicine
ED Attending Note
-
Portions of this chart may have been created with voice recognition software.� Occasional wrong word or��sound alike� substitutions may have occurred due to the inherent limitations of voice recognition software.
Discharge Plan
Departure
Patient Disposition: Admit
Date of Disposition: 06/01/25
Time of Disposition: 16:18
Presentation/result/management discussed w/ accepting MD/DO: Hospitalist
Discharge Problem:
Fracture of femoral neck, right
Prescriptions:
No Action
ipratropium-albuterol 0.5 mg-3 mg(2.5 mg base)/3 mL Solution For Nebulization
3 ml INHALATION R BID
pantoprazole 40 mg Tablet,Delayed Release (Dr/Ec)
40 mg PO BID
budesonide 0.5 mg/2 mL Suspension For Nebulization
0.5 mg INHALATION R BID
rosuvastatin 20 mg Tablet
20 mg PO DAILY
Fruit and Vegetable Daily 5-6-150 mg Capsule
3 cap PO DAILY
psyllium husk [Metamucil] 0.4 gram Capsule
0.8 g PO DAILY
rivaroxaban [Xarelto] 2.5 mg Tablet
2.5 mg PO BID Qty: 90 0RF
candesartan 32 mg tablet
32 mg PO DAILY
Spiriva Respimat 1.25 mcg/actuation mist
2 puff INHALATION R DAILY
lorazepam 1 mg tablet
1 mg PO HS
pregabalin 50 mg capsule
50 mg PO BID
acetaminophen [Tylenol] 325 mg Tablet
650 mg PO BID
polyethylene glycol 3350 [Miralax] 17 gram Powder In Packet
17 g PO DAILY
guanfacine 1 mg Tablet
1 mg PO HS
nebivolol [Bystolic] 5 mg Tablet
5 mg PO DAILY
Referrals:
Jose Lockhart DO [Family Provider, Family Practice]
Interventions
Interventions:
*Risk Screen - Suicide Last Done: 06/01/25 14:25
*General Assessment Last Done: 06/01/25 14:25
*Neglect/Abuse Screening Last Done: 06/01/25 14:25
*ED COVID-19 Vaccine History Last Done: 06/01/25 16:22
ED-Musculoskeletal Assessment Last Done: 06/01/25 16:22
ED- Neurological Assessment Last Done: 06/01/25 16:22
ED-Skin Assessment Last Done: 06/01/25 16:22
Discharge Date and Time
Print Language: FILIPINO
[2025-06-01 15:22] VITALS: BMI 21.2
[2025-06-01 15:55] VITALS: BP 184/53
[2025-06-01 16:19] LABS: Hematocrit 34.0 % (37.0-47.0); Hemoglobin 11.9 g/dL (12.0-16.0); Mean Corp Hgb Conc. 35.0 g/dL (33.0-37.0); Mean Corpuscular Volume 99.1 fL (81.0-99.0); Nucleated Red Blood Cells % 0 %; Platelet Count 221 10^3/uL (130-400); Red Cell Dist. Width 12.2 % (11.5-14.5)
--- NOTE | 2025-06-01 16:24 | HPS.HSE ---
Addendum entered and electronically signed by Rey Montes De Oca MD 06/01/25 18:05:
Seen and examined by me independently in collaboration with the nurse practitioner Denise.
Past medical history/social history/medication/allergies reviewed.
Lab data and imaging data reviewed.
Patient admitted after a fall and she describes it as a mechanical fall.
Sister at bedside to help with the story.
Apparently she wears stockings to the legs which are tight and she was trying to remove them sitting at the edge of the bed and she fell out to the right side. Denies hitting any head. When she got up she noted some pain in the right hip. She was
having difficulty walking due to pain. She called her sister last night and they felt it was too late to come in so sister went to pick her up and got her to the hospital in her car. She was able to walk with assistance.
She states that she was in her usual state of health.
She has a right femur fracture which needs surgical correction. She has multiple risk factors for CAD. She had prior history of remote TIA, PAD, chronic kidney disease and now she has a right carotid bruit on auscultation today. She had left
carotid stenosis 50 to 69% on carotid ultrasound a year ago. Right carotid that was less than 50% but she has bruit now. She seems to be a vasculopath. Will consult cardiology for preop clearance. Will obtain an ultrasound of the carotids.
Surgical clearance based on these data. Also obtain EKG which is not done. She is asymptomatic without chest pain or shortness of breath. Chest is clear. No lower extremity edema. Not hypoxic.
Cognitive impairment
Patient apparently had a staring spell in the ER but no seizure activity.
Sister at bedside says she has noted them before but also has noted some cognitive impairment lately. Patient denies any cognitive deficit. She is alert and oriented to day of the week, month and the year. She did very poorly on mini cog-0-3 for
recall and clock drawing [address] head today shows no evidence of acute findings. No motor deficit. No tremors or nystagmus.
With her vascular disease she would need further evaluation to rule out any cognitive issues from vascular standpoint. She would need neuro psychological evaluation to get a baseline deficits. She will need an MRI of this outpatient.
She also has alcohol use disorder which could be playing a role. Advised strongly to quit alcohol. Watch out for any withdrawal.
Full code
Original Note:
Family Physician
-
Family Physician: Jose Lockhart
Chief Complaint
-
Fall with right leg pain
History of Present Illness
69-year-old female who tripped and fell while taking her compression socks off yesterday landing on bilateral lower extremities however states that she is having increased pain in her right side especially her leg and difficulty ambulating. It was
noted in the ER on x-ray she had right femoral neck fracture. She is on Xarelto for history of PAD status post right iliac stent. She has poor memory recall her sister Elma states last night she gave her multiple frozen things to take home told
her 3 times it was in the container when the patient arrived home she could call to her and asked her what was in the containers. Her sister states this visits been going on since approximately about 1 year. Also during my exam patient was staring
off blankly her sister Elma states this has been happening since early spring along with hand shaking but the patient has not had evaluation. The patient does admit to drinking 16 ounces of wine daily with last drink yesterday 05/31/2025. She is
also smoking three-quarter pack a day greater than 50 years. She also reports no bowel movement in the past 3 days despite taking MiraLAX once a day and Metamucil
She had recent admission for acute on chronic hyponatremia and constipation along with heme positive stool but did not appear to have active GI bleed but was due to large rectal fecal impaction.
She has past medical history of alcohol abuse, nicotine abuse right iliac stent, right femoral endarterectomy, HTN, HLD, COPD, GERD,, nicotine abuse anxiety, depression, insomnia, chronic hyponatremia, constipation
Medical History
Past Medical History
Past Medical History: Reports Other
Additional Past Medical History:
alcohol abuse
nicotine abuse right iliac stent
right femoral endarterectomy
History TIA
HTN
HLD
COPD
GERD
nicotine abuse
anxiety
depression
insomnia
chronic hyponatremia
constipation
Past Surgical History: Reports Other
Additional Past Surgical History:
right iliac stent
section
Angioplasty 1994
Ovarian cyst removal 1970
Colonoscopy
Bilateral cataract extraction with lens implants
Social History
Tobacco: Smoker (Three-quarter pack a day greater than 50 years)
Alcohol: Daily (16 ounces wine daily)
Drug: None
Personal: Single
Living: Alone
Employment: Retired
Family History
Family History: Other (Mother history CVA)
Allergies / Home Medications
Allergies reflects when Allergies were last updated in [employer].
Home Medications with original date entered in [employer]
Allergy/Medication List:
Allergies
Allergy/AdvReac Type Severity Reaction Status Date / Time
amlodipine Allergy Rash Verified 06/01/25 14:24
Cephalosporins Allergy Rash Verified 06/01/25 14:24
duloxetine (From Cymbalta) Allergy Rash Verified 06/01/25 14:24
escitalopram Allergy Rash Verified 06/01/25 14:24
hydroxychloroquine (From Allergy Unknown Verified 06/01/25 14:24
Plaquenil)
Iodinated Contrast Media Allergy Rash Verified 06/01/25 14:24
penicillin V Allergy Rash Verified 06/01/25 14:24
Penicillins Allergy Rash Verified 06/01/25 14:24
prednisone Allergy Rash Verified 06/01/25 14:24
varenicline (From Chantix) Allergy nausea, Verified 06/01/25 14:24
vomiting,
diarrhea
Home Medications
aspirin 81 mg tablet,delayed release (Ruby Low Dose Aspirin) 81 mg PO BID Blood clot prevention/tx 01/06/23
budesonide 0.5 mg/2 mL suspension for nebulization 0.5 mg inhalation BIDPRN PRN sob/wheezing 01/06/23
clonidine HCl 0.1 mg tablet 0.1 mg PO BID Blood pressure 01/06/23
ipratropium 0.5 mg-albuterol 3 mg (2.5 mg base)/3 mL nebulization soln 3 ml inhalation BID Lung/breathing issues 01/06/23
ykdklpka-uyflfu-wlofx extract 5 mg-6 mg-150 mg capsule (Fruit and Vegetable Daily) 1 cap PO DAILY Supplement 01/06/23
pantoprazole 40 mg tablet,delayed release 40 mg PO BID Gastrointestinal issue 01/06/23
psyllium husk 0.4 gram capsule (Metamucil) 0.4 g PO Q48H Constipation 01/06/23
rosuvastatin 20 mg tablet 20 mg PO DAILY High cholesterol 01/06/23
pregabalin 50 mg capsule 50 mg PO BID Pain #4 caps 02/07/23
rivaroxaban 2.5 mg tablet (Xarelto) 2.5 mg PO BID #90 tabs 02/07/23
bisacodyl 5 mg tablet,delayed release (Dulcolax (bisacodyl)) 5 - 10 mg PO BIDPRN PRN constipation 05/19/24
candesartan 32 mg tablet 32 mg PO DAILY 05/19/24
furosemide 20 mg tablet 20 mg PO DAILYPRN PRN swelling/edema 05/19/24
Held on 05/21/24. Instructions: Until you see your family doctor
lorazepam 1 mg tablet 1 mg PO TIDPRN PRN anxiety/sleep 05/19/24
tiotropium bromide 1.25 mcg/actuation mist for inhalation (Spiriva Respimat) 2 puff inhalation R DAILY 05/19/24
nicotine (polacrilex) 2 mg gum 2 mg PO Q2HPRN PRN nicotine cravings 1 month #40 ea 05/21/24
Review of Systems
-
History Source: Patient
A 12 point ROS was completed and negative except as noted: Yes
Constitutional: Denies Fatigue or Chills
EENT: Denies Sore Throat or Runny Nose
Respiratory: Denies Cough or Trouble Breathing
Cardiac: Denies Chest Pain, Diaphoresis, Palpitations or Syncope
Abdomen/GI: Reports Constipated (3 days); Denies Abdominal Pain, Nausea, Vomiting, Diarrhea or Bloody Stools
: Denies Dysuria, Frequency, Flank Pain, Incontinence or Difficulty Voiding
Musculoskeletal: Denies Joint Pain or Edema
Skin: Denies Itching or Rash
Neurological: Reports Weakness (Right leg due to [place] neck fracture); Denies Dizzy or Headache
Endocrine: Reports No Symptoms
Hematologic/Lymphatic: Reports No Symptoms
Psych: Reports Calm
Physical Exam
Vital Signs
Vital Signs
Temp Pulse Resp BP Pulse Ox
98.4 F 67 23 184/53 96
06/01/25 14:25 06/01/25 16:15 06/01/25 16:15 06/01/25 15:55 06/01/25 15:32
Physical Exam
General: Comfortable, Conversant and Other (Slight poor memory recall, staring off episode during my exam); No Pain, Fever or Chills
HEENT: NormoCephalic, Anicteric, Moist mucous membranes, PERRLA, [place] Conjunctivae and No Ptosis
Respiratory: Clear; No Wheezes, Rales or Rhonchi
Cardiac: S1/S2 and Regular Rhythm; No Murmur, Rub, Gallop or Peripheral Edema
Breast: Deferred by me
GI: Soft, Non Tender, Non Distended, Normal Bowel Sounds and No Hepatosplenomegaly
Rectal: Deferred by Provider
Genito-urinary: Deferred by me
Musculoskeletal: No Clubbing, No Cyanosis and No Edema
Skin: Warm and Dry; No Rash
Neuro: AO x 3 (To name, place, year, president however sister states she has been forgetting things forgot frozen food in container although was reminded 3 times yesterday had staring off episode lasting several minutes during my exam that she was
unaware of), Cranial Nerves Intact and No Sensory Deficits; No Slurred Speech, Facial Droop or Tremors
Psych: Calm
Laboratory Results
-
06/01/25 16:01
Impression/Plan
-
Impression/plan:
Admit to telemetry
#Mechanical fall with right proximal femoral neck fracture
- Consult Ortho
-Hold Xarelto, patient last dose of Xarelto 2.5 mg
Hgb 11.9
- consult cardiology for pre op eval hx pad carotid disease
-ekg
#Chronic hyponatremia due to alcohol use
Patient drinks 16 ounces of wine daily last drink was yesterday 05/31/2025 evening
- MSAs screen per protocol
- fluid restrict
-Cessation advised
-Check B12 level
# Cognitive impairment
-reported by sister for the past year
#Reported staring episodes x 6 months
Witnessed staring episode in hospital by myself lasting approximately 1 minute patient unaware
-Cognitive impairment assessment 1 out of 5 correct
-Recommend outpatient MRI will monitor neurological status
-CT head No acute intracranial abnormality compatible with chronic small vessel ischemic disease mild global peripheral volume loss
#Right-sided carotid bruit history PAD/CAD
-Check carotid ultrasound
#Recent acute Constipation 05/19/2025-- large size stool bolus in rectal vault, has since passed
#Heme positive stool was due to to severe constipation, possibly hemorrhoids
#PAD s/p Right Iliac Stent and Right Femoral Endarterectomy
#HLD
-Continue statin, aspirin
Hold Xarelto due to right femoral neck fracture
#Essential Hypertension
BP 187/69
-Continue candesartan, clonidine, Lasix
#Active smoker
#COPD�no acute exacerbation
-Smoking three-quarter pack a day x 50+ years
-Cessation advised
-Continue budesonide, DuoNebs, Spiriva
#GERD
Continue PPI twice daily
#Anxiety/Depression/Insomnia
-Continue lorazepam as needed
#Tobacco Use Disorder
-Encourage smoking cessation
-Offer Nicorette gum as needed
DVT prophylaxis
SCDs
Full code
[2025-06-01 16:30] LABS: ALT (SGPT) 20 U/L (0-35); AST (SGOT) 25 U/L (14-36); Albumin 3.5 g/dl (3.5-5.0); Alkaline Phosphatase 63 U/L (38-126); Blood Urea Nitrogen 30 mg/dl (7-17); Calcium 9.4 mg/dl (8.4-10.2); Carbon Dioxide 22 mmol/L (22-30); Chloride 102 mmol/L (98-107); Estimated Creatinine Clearance 24 ml/min; Glucose 90 mg/dl (70-99); Potassium 4.0 mmol/L (3.5-5.1); Sodium 129 mmol/L (135-145); Total Protein 6.4 g/dl (6.3-8.2); eGFR 40.22
[2025-06-01 17:00] VITALS: BP 191/59
[2025-06-01 17:36] LABS: Magnesium 2.1 mg/dl (1.6-2.3)
[2025-06-01 18:00] VITALS: BP 177/59
[2025-06-01 18:22] VITALS: BMI 19.5
[2025-06-01 18:42] LABS: Folate > 20.0 ng/ml (2.76-20); Vitamin B12 > 1000 pg/ml (239-931)
[2025-06-01 19:00] VITALS: BP 192/76
[2025-06-01 19:43] LABS: INR 1.05; PT 14.2 Sec (11.4-14.6)
[2025-06-01 19:44] LABS: APTT 37.0 Sec (23.4-35.0)
[2025-06-01 20:00] LABS: GGTP 54 U/L (12-43)
[2025-06-01] MEDS: SENOKOT-S 1 TABLET PO (20:27)
[2025-06-01] MEDS: TYLENOL 650 MG PO (20:27)
[2025-06-01] MEDS: THIAMINE INJECTION 200 MG IV (20:27)
[2025-06-01] MEDS: LYRICA 50 MG PO (20:27)
[2025-06-01] MEDS: PROTONIX 40 MG PO (20:27)
--- NOTE | 2025-06-01 20:47 | PTCARENOTE ---
Pt received from previous shift in bed. AAOx3, pleasant, slightly forgetful, ? [place]. Oriented to surroundings and plan of care discussed. Labs drawn. Admission and assessment completed. Telemetry = SR w/PVCs. Pre op EKG done. #20 LAC INT
patent. Denies pain while at rest. Verbalizes understanding of need for urine specimen, due to void. Reports daily ETOH intake as 2 small mini bottles of wine nightly, last intake 05/31. MSAS per protocol. Bed alarm placed for safety. WELL LOGGING CAPTAIN
contacted regarding elevated BPs, awaiting instruction. Call chuck w/in reach.
[2025-06-01] MEDS: PULMICORT 0.5 MG INH (20:58)
[2025-06-01] MEDS: DUONEB 3 ML INH (20:58)
[2025-06-01] MEDS: ATACAND 32 MG PO (21:32)
[2025-06-01 22:37] LABS: Urine Character Clear (Clear)
[2025-06-01 22:43] LABS: Urine Red Blood Cell 0-2 /HPF (0-2)
[2025-06-01] MEDS: ATIVAN 1 MG PO (23:28)
[2025-06-01 23:54] VITALS: BP 165/71
[2025-06-02] VITALS (11 sets, daily range): BP systolic 158–198; BP diastolic 67–92
--- NOTE | 2025-06-02 02:15 | PTCARENOTE ---
Pt unable to void on bedpan. Baldder scanned for 410 mL. ANNUAL GIVING OFFICER covering house contacted, electronic orders received for bladder scan/straight cath per algorithm. Pt was able to void large amount w/o intervention.
--- NOTE | 2025-06-02 08:10 | W.PN.UPDATE ---
Update Note
Progress Note Update
Full orthopedic consult to be dictated:
Patient unfortunately sustained a displaced right femoral neck fracture which is going to require hemiarthroplasty. She is on Xarelto with last dose June 01, 2025 in the morning. She is going to require Xarelto washout and surgery is tentatively
scheduled June 03, 2025 in the afternoon with Dr. Wright. This will be general surgery and not regional. Obviously we will need clearance from medical team/cardiology before proceeding. Surgical location was marked. Surgery and blood consent
was signed by patient. I did have an opportunity to call her sister Elma Victor and discussed surgery. NPO after midnight, Ancef on-call to operating room and antibiotic irrigation/TXA to operating room.
[2025-06-02] MEDS: PULMICORT 0.5 MG INH ×2 (08:11→19:20)
[2025-06-02] MEDS: SPIRIVA RESPIMAT 2.5 MCG 2 PUFF INH (08:11)
[2025-06-02] MEDS: DUONEB INH (08:14)
[2025-06-02] MEDS: CRESTOR 20 MG PO (08:25)
[2025-06-02] MEDS: MIRALAX 17 GRAMS PO (08:25)
[2025-06-02] MEDS: BYSTOLIC 5 MG PO (08:25)
[2025-06-02] MEDS: SENOKOT-S 1 TABLET PO ×2 (08:25→19:56)
[2025-06-02] MEDS: TYLENOL 650 MG PO ×3 (08:26→19:56)
[2025-06-02] MEDS: FOLVITE 1 MG PO (08:27)
[2025-06-02] MEDS: LYRICA 50 MG PO ×2 (08:27→19:56)
[2025-06-02] MEDS: PROTONIX 40 MG PO ×2 (08:27→19:56)
[2025-06-02] MEDS: ATACAND 32 MG PO (08:27)
[2025-06-02] MEDS: THIAMINE INJECTION 200 MG IV ×2 (08:27→19:56)
--- NOTE | 2025-06-02 09:31 | CON.CAR ---
Consultation
Consultation Request
Date/Time Consultation Requested: 06/02/25 at 8 AM
Date/Time Consultation Performed: 06/02/2025 9:30 AM
Requesting Provider: Hospitalist
Performing Provider: Dr. Covarrubias
Reason for Consultation: Preop cardiovascular valuation
Medical History
-
History of Present Illness:
69-year-old woman with a history of peripheral arterial disease followed by Dr. Adams, coronary artery disease who fell and sustained a hip fracture. Patient was taking off her compression stocks and fell. No evidence of syncope. Prior to that
fall she had been feeling well no complaints of chest pain shortness of breath palpitations lightheadedness syncope or near syncope. She is able to walk in stores and do other usual activities without symptoms she has some limitations due to leg
pains. She periodically has leg pains in her calves both legs. She says this is what limits her from walking up a flight of stairs. She tends to use her chairlift at home.
.
Prior record from [facility] cardiology
Past medical history
Hypertension
COPD
Peripheral arterial disease
SVT
CAD
NSVT
Renal artery stenosis
Mesenteric artery stenosis
Right femoral endarterectomy and right iliac stent
Based on outpatient record
Holter 2021 with 4 beat runs of NSVT
Carotid ultrasound 2020 right internal carotid 50 to 69% stenosis without left carotid stenosis
Vascular imaging 2022 patent bilateral iliac arteries
Echocardiogram 2020 normal left ventricular function mild to moderate aortic regurgitation question of PFO
Myocardial perfusion imaging 08/2021 abnormal perfusion with ischemia involving septal apical and inferior reid
CT angio 2022 right renal artery stenosis stenosis of celiac trunk and SMA occluded right external iliac right focal occlusion of SFA above the knee left SFA occlusions and anterior tibial occlusion moderate stenosis of left SFA stenosis involving
left tibial artery.
Cardiac catheterization 10/07/2000 2130% stenosis or less involving all 3 blood vessels. LVEDP 26
Social History
Tobacco: Former Smoker
Family History
Family History: Reviewed & Not Pertinent
Allergies / Home Medications
Allergy/AdvReac Type Severity Reaction Status Date / Time
amlodipine Allergy Rash Verified 06/01/25 14:24
Cephalosporins Allergy Rash Verified 06/01/25 18:36
duloxetine (From Cymbalta) Allergy Rash Verified 06/01/25 14:24
escitalopram Allergy Rash Verified 06/01/25 14:24
hydroxychloroquine (From Allergy Unknown Verified 06/01/25 14:24
Plaquenil)
Iodinated Contrast Media Allergy Rash Verified 06/01/25 14:24
penicillin V Allergy Rash Verified 06/01/25 18:36
Penicillins Allergy Rash Verified 06/01/25 18:36
prednisone Allergy Rash Verified 06/01/25 14:24
varenicline (From Chantix) Allergy nausea, Verified 06/01/25 14:24
vomiting,
diarrhea
�Medication �Instructions �Recorded �Confirmed �Type
budesonide 0.5 mg/2 mL suspension 0.5 mg inhalation R BID 01/06/23 06/01/25 History
for nebulization
ipratropium 0.5 mg-albuterol 3 mg 3 ml inhalation R BID 01/06/23 06/01/25 History
(2.5 mg base)/3 mL nebulization Lung/breathing issues
soln
xupwksrh-ltlvbj-kxvua extract 5 3 cap PO DAILY Supplement 01/06/23 06/01/25 History
mg-6 mg-150 mg capsule (Fruit and
Vegetable Daily)
pantoprazole 40 mg tablet,delayed 40 mg PO BID Gastrointestinal issue 01/06/23 06/01/25 History
release
psyllium husk 0.4 gram capsule 0.8 g PO DAILY Constipation 01/06/23 06/01/25 History
(Metamucil)
rosuvastatin 20 mg tablet 20 mg PO DAILY High cholesterol 01/06/23 06/01/25 History
rivaroxaban 2.5 mg tablet (Xarelto) 2.5 mg PO BID #90 tabs 02/07/23 06/01/25 Rx
candesartan 32 mg tablet 32 mg PO DAILY 05/19/24 06/01/25 History
lorazepam 1 mg tablet 1 mg PO HS 05/19/24 06/01/25 History
tiotropium bromide 1.25 2 puff inhalation R DAILY 05/19/24 06/01/25 History
mcg/actuation mist for inhalation
(Spiriva Respimat)
acetaminophen 325 mg tablet 650 mg PO BID 06/01/25 06/01/25 History
(Tylenol)
guanfacine 1 mg tablet 1 mg PO HS 06/01/25 06/01/25 History
nebivolol 5 mg tablet (Bystolic) 5 mg PO DAILY 06/01/25 06/01/25 History
polyethylene glycol 3350 17 gram 17 g PO DAILY 06/01/25 06/01/25 History
oral powder packet (Miralax)
pregabalin 50 mg capsule 50 mg PO BID mild Pain 06/01/25 06/01/25 History
Review of Systems
-
All other systems: Negative unless noted
Physical Exam
Vital Signs
Temp Pulse Resp BP Pulse Ox
98.0 F 77 18 198/82 93
06/02/25 07:15 06/02/25 08:27 06/02/25 08:14 06/02/25 08:27 06/02/25 08:14
Lab Results
06/01/25 16:01
06/01/25 16:01
Physical Exam
General: No Apparent Distress and Other (Awake alert cooperative awake alert cooperative)
HEENT: Normocephalic and Anicteric
Respiratory: Other (No wheezes rales or rhonchi)
Cardiac: Regular Rhythm
GI: Non Distended and Normal Bowel Sounds
Musculoskeletal: No Clubbing, No Cyanosis, No Edema and Other (Unable to palpate DP pulse)
Skin: Warm, Dry and Rash (No rash)
Neuro: Awake and Alert
Hematologic/Lymphatic: No Lymphadenopathy
Psych: Calm and Other (Cooperative)
Impression / Plan
-
.
Preoperative cardiovascular examination. 69-year-old woman with history of peripheral arterial disease, nonobstructive coronary disease by cardiac catheterization in September 2021 and hypertension who sustained a right hip fracture and is now
preop. Patient with no symptoms to suggest angina. She appears euvolemic with no symptoms to suggest heart failure. ECG shows sinus rhythm with no acute changes. Patient has some limited limited functional status due to exertional leg pain
suggestive of claudication. Patient is currently hypertensive and is just received additional medical therapy. Provided she has further improvement in her blood pressure today, patient would be stable from a cardiac standpoint to proceed with
orthopedic surgery. However it should be noted that patient does have severe peripheral arterial disease with right AFUA 0.34.. Patient has had previous right femoral endarterectomy and right iliac stenting. She has had updated ultrasounds.
.
Hypertension. Severe systolic blood pressure in the 190s this morning. Patient just received additional antihypertensive medication. Appears she is on candesartan and Bystolic as outpatient also received some additional hydralazine. Will see
impact of meds given. Will need additional blood pressure control prior to surgery
.
PAD. -Patient with history of PAD. Right femoral endarterectomy and right iliac stent 2022 . prior vascular study with right AFUA 0.34 left AFUA 0.23. Patient has symptoms consistent with claudication but denies having rest pain. Patient follows
with Dr. Adams
.
Data Reviewed
-
EKG: Report Reviewed by me
Radiology: Report Reviewed by me
Medical Tests (Nuc Med, Echo etc): Report Reviewed by me
--- NOTE | 2025-06-02 10:29 | W.PN.HOSP.TC ---
Today's Communication/Plan
-
OR tomorrow
Check echocardiogram
Await carotid ultrasound
Check a chest x-ray
Add as needed hydralazine and nicotine patch
Assessment / Plan
Assessment / Plan
#Mechanical fall with right proximal femoral neck fracture
-Hold Xarelto, patient last dose of Xarelto 2.5 mg
-Ortho input noted-OR tomorrow after Plavix washout
#Preop cardiac eval-patient is a vasculopath with PAD and carotid stenosis. She also has chronic kidney disease. Denies any prior cardiac disease. EKG shows poor R wave progression raising concern for prior anterior AR. Check an echocardiogram.
Consult cardiology for preop eval.
#Asymptomatic hypoxia saturations 88 to 90% on room air at rest. History of COPD and ongoing tobacco use. Check a chest x-ray. Started on oxygen as needed to keep saturations more than 93% on room air.
#Active smoker
#COPD�no acute exacerbation
-Smoking three-quarter pack a day x 50+ years
-Cessation advised
-Continue budesonide, DuoNebs, Spiriva
#Chronic hyponatremia
Check urine lites. Fluid restrict for now.
#Alcohol use disorder
Patient drinks 16 ounces of wine daily last drink was yesterday 05/31/2025 evening she drinks 5 times a week. No prior alcohol withdrawal.
- MSAs screen per protocol
-Cessation advised
# Cognitive impairment
-reported by sister for the past year
#Reported staring episodes x 6 months
Witnessed staring episode in hospital by myself lasting approximately 1 minute patient unaware
-Cognitive impairment assessment: Mini cog 1 out of 5 correct
-Recommend outpatient MRI brain and neuropsychological testing
-CT head No acute intracranial abnormality compatible with chronic small vessel ischemic disease mild global peripheral volume loss
#Right-sided carotid bruit history PAD/CAD
-Check carotid ultrasound
#Recent acute Constipation 05/19/2025-- large size stool bolus in rectal vault, has since passed
#Heme positive stool was due to to severe constipation, possibly hemorrhoids
#PAD s/p Right Iliac Stent and Right Femoral Endarterectomy
#HLD
-Continue statin, aspirin
Hold Xarelto due to right femoral neck fracture
#Essential Hypertension
BP 187/69
-Continue candesartan, beta-jackeline
- Add as needed hydralazine
#GERD
Continue PPI twice daily
#Anxiety/Depression/Insomnia
-Continue lorazepam as needed
#Tobacco Use Disorder
-Encourage smoking cessation
-Offer Nicorette gum as needed
DVT prophylaxis
SCDs
Full code
Discussed with RN
Total time spent on today's encounter was 52 minutes which included time spent in counseling the patient/family regarding diagnosis and treatment plan as listed above, goals of care, and symptom management. Case was discussed with nursing staff,
specialists, and care coordinators/case management. All labs and imaging personally reviewed by me. Remainder the time spent in detailed review of previous records, lab data, imaging, and other medical provider documentation.
Anticipated Discharge: > 48 hours
Subjective/Interval History
-
Date of Service: June 02, 2025
Right hip pain persists. No acute worsening.
Voicing no specific complaints.
Denies nausea vomiting or abdominal pain.
Denies shortness of breath or chest pain.
No fever or chills.
No lightheadedness.
Objective Data
-
Vital Signs:
Vital Signs
Temp Pulse Resp BP Pulse Ox
98.0 F 82 18 185/86 90
06/02/25 07:15 06/02/25 10:00 06/02/25 08:14 06/02/25 10:00 06/02/25 10:00
I&O
06/01/25 06/02/25 06/03/25
06:59 06:59 06:59
Intake Total 240 / 240
Balance 240 / 240
Physical Exam
-
General: Comfortable
Respiratory: Clear to Auscultation and Non Labored Respirations; Negative Accessory Resp Muscle Use
Cardiac: Regular Rhythm and S1/S2; Negative Murmur
GI: Soft and Nontender
Neuro: AO x 3 and No Motor Deficits; Negative Tremors
Psych: Calm and Other (Did poorly on mini cog testing yesterday)
Data Reviewed
-
Labs: Labs Reviewed by me
[2025-06-02] MEDS: APRESOLINE 5 MG IV ×2 (11:23→20:02)
--- NOTE | 2025-06-02 11:52 | CM ---
CM following re: discharge planning.
Reviewed pt's chart, met with pt.
Pt is a 69 year old female, admitted with primary dx of Mechanical fall with right proximal femoral neck fracture. OR tomorrow.
Pt reports she lives alone 2SH, 2 steps to enter, has supportive son who lives in [place] and helps as needed. Pt reports her 2 years ago and her life became 'not the same'. Emotional support offered and provided. Pt reports
she has a walker, stair glide, shower chair and nebulizer.
Pt admitted to drinking wine daily, 2 glasses. Pt expressed her agreement to meet with [facility] team. A referral to [facility] made, spoke to CRS Ayan and he will meet with the pt tomorrow.
PT and OT will evaluate the pt to determine a level of care at discharge, possible SNF level of care expected. Pt stated she will discuss after care after the surgery.
PCP: Jose Lockhart
Pharmacy: [facility]
D/C plan: probably SNF. PT and OT will evaluate after surgery tomorrow.
CM will follow with discharge plan updates as hospitalization progresses
[2025-06-02] MEDS: NICODERM TRANSDERMAL 14 MG TRANSDERM (12:53)
[2025-06-02 17:37] LABS: B.E. -1.7 mmol/L; HCO3 21.9 mmol/L (21-28); O2 Saturation % 88.2 % (94-98); PCO2 33 mmHg (32-35)
[2025-06-02 17:47] LABS: PO2 57 mmHg (83-108)
--- NOTE | 2025-06-02 18:30 | PTCARENOTE ---
Patient with spo2 of 88-90% on 3L oxygen this afternoon. Received order from Dr. Montes De Oca to obtain ABG lab. Lab showed critical level of PO2 of 57; doctor notified. Obtained order to ask respiratory therapy to titrate oxygen to keep SPO2 at or above
91%. Throughout, patient does not ever appear in any respiratory distress.
[2025-06-02] MEDS: VENTOLIN NEBULES 2.5 MG INH (19:20)
[2025-06-02] MEDS: ATIVAN 1 MG PO (21:40)
[2025-06-03] VITALS (18 sets, daily range): BP systolic 119–209; BP diastolic 58–149
[2025-06-03] MEDS: PULMICORT 0.5 MG INH ×2 (07:24→18:04)
[2025-06-03] MEDS: VENTOLIN NEBULES 2.5 MG INH ×2 (07:24→18:04)
[2025-06-03] MEDS: SPIRIVA RESPIMAT 2.5 MCG 2 PUFF INH (07:25)
[2025-06-03 07:28] LABS: Hematocrit 35.7 % (37.0-47.0); Hemoglobin 12.3 g/dL (12.0-16.0); Mean Corp Hgb Conc. 34.5 g/dL (33.0-37.0); Mean Corpuscular Volume 98.1 fL (81.0-99.0); Platelet Count 244 10^3/uL (130-400); Red Cell Dist. Width 12.1 % (11.5-14.5)
[2025-06-03 07:56] LABS: Blood Urea Nitrogen 24 mg/dl (7-17); Calcium 9.6 mg/dl (8.4-10.2); Carbon Dioxide 20 mmol/L (22-30); Chloride 102 mmol/L (98-107); Estimated Creatinine Clearance 28 ml/min; Glucose 91 mg/dl (70-99); Potassium 3.9 mmol/L (3.5-5.1); Sodium 130 mmol/L (135-145); eGFR 48.39
[2025-06-03] MEDS: NICODERM TRANSDERMAL 14 MG TRANSDERM (07:57)
[2025-06-03] MEDS: APRESOLINE 5 MG IV ×2 (07:57→15:01)
[2025-06-03] MEDS: SENOKOT-S 1 TABLET PO ×2 (07:57→20:09)
[2025-06-03] MEDS: LYRICA 50 MG PO ×2 (07:59→20:10)
[2025-06-03] MEDS: CRESTOR 20 MG PO (07:59)
[2025-06-03] MEDS: BYSTOLIC 5 MG PO (07:59)
[2025-06-03] MEDS: FOLVITE 1 MG PO (07:59)
[2025-06-03] MEDS: TYLENOL 650 MG PO ×2 (07:59→20:10)
[2025-06-03] MEDS: ATACAND 32 MG PO (08:01)
[2025-06-03] MEDS: THIAMINE INJECTION 200 MG IV ×2 (08:01→20:10)
[2025-06-03] MEDS: PROTONIX 40 MG PO ×2 (08:01→20:10)
[2025-06-03] MEDS: MIRALAX PO (08:01)
--- NOTE | 2025-06-03 08:08 | CON.PUL ---
Consultation
Consultation Request
Date/Time Consultation Requested: 06/03/2025-8 AM
Date/Time Consultation Performed: 06/03/2025-8 10 AM
Requesting Provider: Hospitalist
Performing Provider: Dr. Smart
Reason for Consultation: Shortness of breath/COPD/preop clearance
Medical History
-
Chief Complaint: Shortness of breath/hip fracture
History of Present Illness:
69-year-old smoking female with history of COPD, PAD on Xarelto status post right iliac stent, hypertension, hyperlipidemia, reflux, anxiety and depression who tripped and fell while taking her compression socks off yesterday resulting in right hip
fracture-pulmonary consulted for preop clearance/COPD/shortness of breath 06/03/2025. Patient states that over the last several months her breathing has been quite stable. She cannot climb stairs. She walks on level ground. She does not use
oxygen regularly. Can she continues to smoke 15 cigarettes daily. She denies any current shortness of breath at rest on oxygen, no chest pain, chest congestion, productive cough, pleurisy, hemoptysis, and offers no complaints of abdominal pain.
She does have some hip pain.
Past Medical History
Past Medical History: None (COPD. Cigarette smoker ongoing. Hypertension. Hyperlipidemia. GERD. Anxiety/depression. Insomnia. Chronic hyponatremia. Constipation. Right iliac stent. . Ovarian cyst removal 1970. Bilateral
cataract.)
Social History
Tobacco: Smoker (74-lhom-fayl-continues 15 cigarettes daily)
Alcohol: Daily (16 ounces of wine daily)
Drug: None
Personal: Single
Living: Alone
Occupational Exposures: No known asbestos exposure
Environmental Exposures: No known tuberculosis exposure
Family History
Family History: Reviewed & Not Pertinent ( Mother-CVA)
Allergies / Home Medications
Allergies
Allergy/AdvReac Type Severity Reaction Status Date / Time
amlodipine Allergy Rash Verified 06/01/25 14:24
Cephalosporins Allergy Rash Verified 06/01/25 18:36
duloxetine (From Cymbalta) Allergy Rash Verified 06/01/25 14:24
escitalopram Allergy Rash Verified 06/01/25 14:24
hydroxychloroquine (From Allergy Unknown Verified 06/01/25 14:24
Plaquenil)
Iodinated Contrast Media Allergy Rash Verified 06/01/25 14:24
penicillin V Allergy Rash Verified 06/01/25 18:36
Penicillins Allergy Rash Verified 06/01/25 18:36
prednisone Allergy Rash Verified 06/01/25 14:24
varenicline (From Chantix) Allergy nausea, Verified 06/01/25 14:24
vomiting,
diarrhea
Home Medications
�Medication �Instructions �Recorded �Confirmed �Last Taken �Type
budesonide 0.5 mg/2 mL suspension 0.5 mg inhalation R BID 01/06/23 06/01/25 05/31/25 History
for nebulization
ipratropium 0.5 mg-albuterol 3 mg 3 ml inhalation R BID 01/06/23 06/01/25 06/01/25 History
(2.5 mg base)/3 mL nebulization Lung/breathing issues
soln
kwjamsgq-pnjltu-pddfg extract 5 3 cap PO DAILY Supplement 01/06/23 06/01/25 06/01/25 History
mg-6 mg-150 mg capsule (Fruit and
Vegetable Daily)
pantoprazole 40 mg tablet,delayed 40 mg PO BID Gastrointestinal issue 01/06/23 06/01/25 06/01/25 History
release
psyllium husk 0.4 gram capsule 0.8 g PO DAILY Constipation 01/06/23 06/01/25 05/31/25 History
(Metamucil)
rosuvastatin 20 mg tablet 20 mg PO DAILY High cholesterol 01/06/23 06/01/25 06/01/25 History
rivaroxaban 2.5 mg tablet (Xarelto) 2.5 mg PO BID #90 tabs 02/07/23 06/01/25 06/01/25 Rx
candesartan 32 mg tablet 32 mg PO DAILY 05/19/24 06/01/25 06/01/25 History
lorazepam 1 mg tablet 1 mg PO HS 05/19/24 06/01/25 05/31/25 History
tiotropium bromide 1.25 2 puff inhalation R DAILY 05/19/24 06/01/25 06/01/25 History
mcg/actuation mist for inhalation
(Spiriva Respimat)
acetaminophen 325 mg tablet 650 mg PO BID 06/01/25 06/01/25 06/01/25 History
(Tylenol)
guanfacine 1 mg tablet 1 mg PO HS 06/01/25 06/01/25 05/31/25 History
nebivolol 5 mg tablet (Bystolic) 5 mg PO DAILY 06/01/25 06/01/25 06/01/25 History
polyethylene glycol 3350 17 gram 17 g PO DAILY 06/01/25 06/01/25 05/31/25 History
oral powder packet (Miralax)
pregabalin 50 mg capsule 50 mg PO BID mild Pain 06/01/25 06/01/25 06/01/25 History
Review of Systems
-
Unable to Obtain full review of systems at this time due to: Other (Per HPI)
Vitals / Labs / Diagnostic Testing
Vital Signs
Temp Pulse Resp BP Pulse Ox
98.2 F 83 16 190/82 92
06/03/25 07:20 06/03/25 08:01 06/03/25 07:29 06/03/25 08:01 06/03/25 07:29
Lab Data
06/03/25 06:55
06/03/25 06:55
Laboratory Results
06/02/25
17:17
pH 7.43
pCO2 33
pO2 57 L*
HCO3 21.9
O2 Delivery Level
Diagnostic Testing:
Physical Exam
-
Exam:
Well-nourished and well-developed in no apparent distress
HEENT-atraumatic, normocephalic
Neck-supple, no JVD, no bruit
Heart-regular rate and rhythm-no murmurs, rubs or gallops
Chest with diminished breath sounds, prolonged expiratory time, no wheezes or crackles
Back without tenderness
Abdomen-soft, nontender, nondistended, no hepatosplenomegaly
Extremities-no cyanosis, clubbing, edema and good peripheral pulses
Integument-intact, no rashes, lesions or ecchymosis
Neurology-alert and oriented, nonfocal motor and sensory exam
Assessment
-
69-year-old smoking female with history of COPD, PAD on Xarelto status post right iliac stent, hypertension, hyperlipidemia, reflux, anxiety and depression who tripped and fell while taking her compression socks off yesterday resulting in right hip
fracture-pulmonary consulted for preop clearance/COPD/shortness of breath 06/03/2025.
Mechanical fall status post right proximal femoral neck fracture
COPD without acute exacerbation
ABG 06/02/25-3357/7.43
Right upper lobe mass-large right upper lobe new since 2022
Tobacco abuse
Chronic hyponatremia due to alcohol use-serum sodium 130
Mild leukocytosis-WBC 11.2
Renal insufficiency
Moderate to severe aortic regurgitation
Protein calorie malnutrition
Conditions present prior to admission:
Last hospitalization-discharged 02/25/2023-right femoral endarterectomy with bovine patch angioplasty, right iliac angioplasty/stent and lithotripsy
COPD.
Cigarette smoker ongoing.
Hypertension.
Hyperlipidemia.
CAD.
PSVT.
Neuropathy.
GERD.
Anxiety/depression.
Insomnia.
Chronic hyponatremia.
Constipation.
Right iliac stent. . Ovarian cyst removal 1970. Bilateral cataract.
Plan
The patient has suspected moderate to severe underlying COPD-does not see a studio artist and no pulmonary function tests are available for review-he continues to smoke and is at moderate risk for perioperative pulmonary complications but cleared
for proposed surgery from a pulmonary perspective
Supplemental oxygen as needed
Patient on Spiriva
Albuterol nebs twice daily and as needed
Budesonide nebulizers
Mucolytic's if needed
Mucus clearing devices if needed
Incentive spirometry
Aspiration precautions
Large new right upper lobe mass noted
Plan stabilized postoperatively CT chest is recommended
Bedside spirometry for baseline
Discussions in regards to level of workup and treatment desired by patient willingness to
Smoking cessation counseling ongoing
Nicotine patch
Cardiology evaluation ongoing
Echocardiogram summarized below
Monitor serum sodium
Monitor for alcohol withdrawal
DVT prophylaxis-was on Xarelto-currently on hold-mechanical for now
GI prophylaxis-on pantoprazole
Nutrition physical and Occupational Therapy
Continue to encourage outpatient pulmonary [id number] pulmonary mass workup, ongoing smoking cessation, inhalers, PFTs, yearly low-dose lung cancer screening CTs,
Diagnostic data:
Chest x-ray 01/20/23-COPD changes, no acute radiographic abnormalities
Chest x-ray 06/02/2025-new large right upper lobe pulmonary mass
Echocardiogram 06/02/2025-EF 60-65%, aortic sclerosis without stenosis, moderate to severe aortic regurgitation
Data Reviewed
-
EKG: Report reviewed by me
Radiology: Image personally visualized and interpreted and Report reviewed by me
Medical Tests (Nuc Med, Echo etc): Report reviewed by me
Labs: Labs reviewed by me
Old Records: Reviewed
Total Time Spent with Patient (in minutes): 65
--- NOTE | 2025-06-03 08:14 | W.PN.UPDATE ---
Update Note
Progress Note Update
Patient resting comfortably. Afeb. WBC 11. Hgb 12.3. T&S will be good. Cardiac testing completed. Plan for right hip hemiarthroplasty later today via Dr. Wright. ROBERTO RLKylah. Reached out to attending hospitalist, Dr. Montes De Oca, who included myself,
cards (Dr. Murdock), and pulmonology around (Dr. Smart) on a group TT. All aware of the patient tentatively scheduled for the OR later today. Cardiology and pulmonology to see patient, and hopefully clear for procedure. Patient to remain at
bedrest. NPO. Consents previously obtained. Will follow
--- NOTE | 2025-06-03 10:44 | W.PN.HOSP.TC ---
Today's Communication/Plan
-
OR today
Pulmonary mass evaluation.
Continue with oxygen supplementation. Will check for home O2 prior to discharge as she likely requires it on discharge.
Avoid gillian/ Postoperative hypotension with carotid disease.
Assessment / Plan
Assessment / Plan
#Mechanical fall with right proximal femoral neck fracture
- Xarelto on hold since admission, patient last dose of Xarelto 2.5 mg
-Ortho input noted-OR this afternoon after Plavix washout
#Preop cardiac eval-patient is a vasculopath with PAD and carotid stenosis. She also has chronic kidney disease. Denies any prior cardiac disease. EKG shows poor R wave progression raising concern for prior anterior UT. Echo with normal EF,
moderate to severe AI. Appreciate cardiology input. Proceed with surgery as per cardiology recommendations.
#Asymptomatic hypoxia saturations 88 to 90% on room air at rest. History of COPD and ongoing tobacco use. Started on oxygen as needed to keep saturations more than 91% on room air. Chest x-ray shows new large right upper lobe pulmonary mass. No
evidence of active COPD exacerbation. Obtain pulmonary eval for the mass and to follow up respiratory status gillian/ post operatively.
#Right upper lobe mass-current smoker. Unlikely malignant. Need evaluation postoperatively.
#Active smoker
#COPD�no acute exacerbation
-Smoking three-quarter pack a day x 50+ years
-Cessation advised
-Continue budesonide, DuoNebs, Spiriva
#Chronic hyponatremia rule out SIADH with pulmonary mass
Check urine lites. Fluid restrict for now.
#Alcohol use disorder
Patient drinks 16 ounces of wine daily last drink was yesterday 05/31/2025 evening she drinks 5 times a week. No prior alcohol withdrawal.
- MSAs screen per protocol
-Cessation advised
# Cognitive impairment
-reported by sister for the past year
#Reported staring episodes x 6 months
Witnessed staring episode in hospital by myself lasting approximately 1 minute patient unaware
-Cognitive impairment assessment: Mini cog 1 out of 5 correct
-Recommend outpatient MRI brain and neuropsychological testing. Definitely would need MRI imaging of the brain with the newfound right upper lobe mass
-CT head No acute intracranial abnormality compatible with chronic small vessel ischemic disease mild global peripheral volume loss
#Right-sided carotid bruit history PAD/CAD
- Ultrasound noted with coronary artery disease close of 50 to 69% on the left and close to 50% on the right.
- Follow-up with vascular as before.
- Avoid gillian and postoperative hypotension. Currently blood pressure is on the higher side.
#Recent acute Constipation 05/19/2025-- large size stool bolus in rectal vault, has since passed
#Heme positive stool was due to to severe constipation, possibly hemorrhoids
#PAD s/p Right Iliac Stent and Right Femoral Endarterectomy
#HLD
-Continue statin, aspirin
Hold Xarelto due to right femoral neck fracture
#Essential Hypertension
Blood pressure not under goal
-Continue candesartan, beta-jackeline
- Add as needed hydralazine
#GERD
Continue PPI twice daily
#Anxiety/Depression/Insomnia
-Continue lorazepam as needed
#Tobacco Use Disorder
-Encourage smoking cessation
-Offer Nicorette gum as needed
DVT prophylaxis
SCDs
Full code
Discussed with RN
Discussed with cardiology and pulmonary
Total time spent on today's encounter was 52 minutes which included time spent in counseling the patient/family regarding diagnosis and treatment plan as listed above, goals of care, and symptom management. Case was discussed with nursing staff,
specialists, and care coordinators/case management. All labs and imaging personally reviewed by me. Remainder the time spent in detailed review of previous records, lab data, imaging, and other medical provider documentation.
Anticipated Discharge: > 48 hours
Subjective/Interval History
-
Date of Service: June 03, 2025
Bit sleepy but arousable
Oriented to place and person
Complaints of right hip pain
Denies SOB or CP
No MICHELLE
Objective Data
-
Labs:
Laboratory Results
06/03/25
06:55
WBC 11.2 H
Hgb 12.3
Hct 35.7 L
Plt Count 244
Sodium 130 L
Potassium 3.9
Chloride 102
Carbon Dioxide 20 L
BUN 24 H
Creatinine 1.2 H
Glucose 91
Calcium 9.6
Vital Signs:
Vital Signs
Temp Pulse Resp BP Pulse Ox
98.2 F 96 16 163/70 92
06/03/25 07:20 06/03/25 09:06 06/03/25 07:29 06/03/25 09:06 06/03/25 07:29
I&O
06/02/25 06/03/25 06/04/25
06:59 06:59 06:59
Intake Total 240 / 240 940 / 940
Balance 240 / 240 940 / 940
Physical Exam
-
General: Comfortable
Respiratory: Clear to Auscultation and Non Labored Respirations; Negative Wheezes or Accessory Resp Muscle Use
Cardiac: Regular Rhythm, S1/S2 and Murmur
GI: Soft and Nontender
Musculoskeletal: No Edema
Neuro: Awake, Alert and Oriented
Psych: Calm
Data Reviewed
-
Labs: Labs Reviewed by me
--- NOTE | 2025-06-03 10:44 | W.PN.UPDATE ---
Update Note
Progress Note Update
Patient known to me. Multilevel peripheral arterial occlusive disease. Admitted with right hip fracture. Scheduled to undergo orthopedic surgery today.
Plan for vascular follow-up postoperatively. Pressure offloading will be extremely important to avoid development of lower extremity/foot ulcers while she is recovering from surgery.
Please call with any questions or concerns
Naveen Adams III, MD
Vascular Surgery
[facility]
--- NOTE | 2025-06-03 14:16 | CM ---
CM following re: discharge planning.
Reviewed pt's chart, met with pt.
per chart review, undergo orthopedic surgery today.
Pt lives alone 2SH, 2 steps to enter, has supportive son who lives in [place] and helps as needed. Pt reports her 2 years ago and her life became 'not the same'. Pt has a walker, stair glide, shower chair and nebulizer.
[facility] following.
PT and OT will evaluate the pt to determine a level of care at discharge, possible SNF level of care expected. Pt stated she will discuss after care after the surgery.
D/C plan: probably SNF. PT and OT will evaluate after surgery.
CM will follow with discharge plan updates as hospitalization progresses
--- NOTE | 2025-06-03 15:03 | VNURNOTE ---
Chart reviewed. Pt currently recovering in PACU. PT, OT evals pending. DC dispo unclear at this time. PM[facility] referral placed in [facility] status in [facility]. Will follow up.
[2025-06-03] MEDS: ROXICODONE 5 MG PO (15:32)
--- NOTE | 2025-06-03 16:22 | PTCARENOTE ---
Pt arrived 1600 from PACU. Pt AAOX3. VSS. 94% ON 5L O2. primaseal small drainage. oriented to room and call woods. bed locked and in lowest position. bed alarm in place for saftey.
[2025-06-03] MEDS: SENOKOT 17.2 MG PO (20:09)
[2025-06-03] MEDS: COLACE 100 MG PO (20:09)
[2025-06-03] MEDS: XARELTO 1.25 MG PO (20:10)
[2025-06-03] MEDS: ANCEF 5 IV (20:12)
[2025-06-03] MEDS: ATIVAN 1 MG PO (22:22)
[2025-06-04] VITALS (8 sets, daily range): BP systolic 112–179; BP diastolic 59–75; PULSE 76–77; O2SAT 92–93
--- NOTE | 2025-06-04 02:12 | SUR.OPER ---
weaned from 5 to 3 liters oxygen
[2025-06-04] MEDS: FLUSH (NSS) 1 FLUSH IV (04:02)
[2025-06-04] MEDS: ANCEF 5 IV (04:03)
[2025-06-04 06:05] LABS: Hematocrit 29.2 % (37.0-47.0); Hemoglobin 9.9 g/dL (12.0-16.0); Mean Corp Hgb Conc. 33.9 g/dL (33.0-37.0); Mean Corpuscular Volume 99.7 fL (81.0-99.0); Platelet Count 197 10^3/uL (130-400); Red Cell Dist. Width 12.7 % (11.5-14.5)
[2025-06-04 06:34] LABS: Blood Urea Nitrogen 33 mg/dl (7-17); Calcium 8.8 mg/dl (8.4-10.2); Carbon Dioxide 21 mmol/L (22-30); Chloride 104 mmol/L (98-107); Estimated Creatinine Clearance 21 ml/min; Glucose 117 mg/dl (70-99); Potassium 4.4 mmol/L (3.5-5.1); Sodium 130 mmol/L (135-145); eGFR 34.27
[2025-06-04] MEDS: PULMICORT 0.5 MG INH ×2 (07:36→19:46)
[2025-06-04] MEDS: VENTOLIN NEBULES 2.5 MG INH ×2 (07:36→19:46)
[2025-06-04] MEDS: SPIRIVA RESPIMAT 2.5 MCG 2 PUFF INH (07:37)
--- NOTE | 2025-06-04 08:55 | W.PN.ORTHO ---
Today's Communication / Plan
-
69 yo F POD1 right hip hemiarthroplasty for femoral neck fracture under the direction of Dr. Wright
--WBAT to RLE with walker. THPs x6-8 weeks. We appreciate the assistance of PT/OT.
--Modified Xarelto DVT ppx.
--Pain control prn. Ice and elevation for pain and edema control.
--Maintain surgical dressing until 7-10 days post-op. Staple removal at 2 weeks post-op.
--Hgb 9.9 this AM. Continue to monitor.
--Case management consult for dc planning.
--Orthopedics will continue to follow along.
Assessment
.
Distal Motor Intact: Yes
Dressing:
Clean, dry and intact.
Plan
.
Surgery / Date: Right hip hemiarthroplasty
Activity:
Out of bed.
PT/OT
Subjective
.
.:
Ms. Campos is POD1 following her right hip hemiarthroplasty performed by Dr. Wright. She is resting comfortably in bed this morning. She does endorse mild aching about the hip.
Vital Signs and Labs
.
Vital Signs and Labs:
Lab Results
06/04/25 05:41
06/04/25 05:41
Temp Pulse Resp BP Pulse Ox
98.2 F 85 20 151/62 95
06/04/25 07:35 06/04/25 07:35 06/04/25 07:35 06/04/25 07:35 06/04/25 07:35
PT 14.2 Sec (11.4-14.6) 06/01/25 19:22
INR 1.05 06/01/25 19:22
Non-invasive Hgb result: 11.4
Physical Exam
-
Directed exam of the right lower extremity reveals strikethrough of blood on the dressing, otherwise dry and intact. No significant tenderness to palpation about the hip. Thigh soft and compressible. Calf soft and nontender. Patient able to wiggle
toes, plantar and dorsiflex ankle. Neurovascularly intact distally.
[2025-06-04] MEDS: MIRALAX 17 GRAMS PO (09:19)
[2025-06-04] MEDS: XARELTO 1.25 MG PO ×2 (09:20→20:26)
[2025-06-04] MEDS: ATACAND 32 MG PO (09:21)
[2025-06-04] MEDS: NICODERM TRANSDERMAL 14 MG TRANSDERM (09:22)
[2025-06-04] MEDS: CRESTOR 20 MG PO (09:22)
[2025-06-04] MEDS: SENOKOT 17.2 MG PO (09:22)
[2025-06-04] MEDS: FOLVITE 1 MG PO (09:22)
[2025-06-04] MEDS: PROTONIX 40 MG PO (09:22)
[2025-06-04] MEDS: LYRICA 50 MG PO ×2 (09:23→20:26)
[2025-06-04] MEDS: BYSTOLIC 5 MG PO (09:23)
[2025-06-04] MEDS: COLACE 100 MG PO (09:24)
[2025-06-04] MEDS: SENOKOT-S 1 TABLET PO (09:24)
[2025-06-04] MEDS: THIAMINE INJECTION 200 MG IV (09:25)
[2025-06-04] MEDS: TYLENOL 650 MG PO ×2 (09:25→20:25)
--- NOTE | 2025-06-04 09:43 | W.PN.HOSP.TC ---
Today's Communication/Plan
-
Continue with pain regimen and monitor for DVT prophylaxis
Await PT OT eval
Start dispo planning
Assessment / Plan
Assessment / Plan
#Mechanical fall with right proximal femoral neck fracture
- S/p right hip arthroplasty without immediate complications.
- Continue pain regimen PT OT eval.
- WBAT to RLE with walker. THPs x6-8 weeks.
- Modified Xarelto DVT ppx.
-Case management to look into disposition.
# Anemia -change in HH post op noted -no external bleeding . Unclear if diluational or blood loss .Repeat in AM.
#Asymptomatic hypoxia saturations 88 to 90% on room air at rest. History of COPD and ongoing tobacco use. Started on oxygen as needed to keep saturations more than 91% on room air. Chest x-ray shows new large right upper lobe pulmonary mass. No
evidence of active COPD exacerbation. Obtain pulmonary eval for the mass and to follow up respiratory status gillian/ post operatively.
#Right upper lobe mass-current smoker. Unlikely malignant. Need evaluation postoperatively.
#Active smoker
#COPD�no acute exacerbation
-Smoking three-quarter pack a day x 50+ years
-Cessation advised
-Continue budesonide, DuoNebs, Spiriva
- Now postop pulmonary complications so far. Continue with oxygen therapy. Would need home O2 eval once on her feet.
- Further evaluation of the mass per pulmonary.
#Chronic hyponatremia rule out SIADH with pulmonary mass
Check urine lites if and still pending. Fluid restrict for now.
#Alcohol use disorder
Patient drinks 16 ounces of wine daily last drink was yesterday 05/31/2025 evening she drinks 5 times a week. No prior alcohol withdrawal.
- MSAs screen per protocol
-Cessation advised
- No evidence of withdrawal so far.
# Cognitive impairment
-reported by sister for the past year
#Reported staring episodes x 6 months
Witnessed staring episode in hospital by myself lasting approximately 1 minute patient unaware
-Cognitive impairment assessment: Mini cog 1 out of 5 correct
-Recommend outpatient MRI brain and neuropsychological testing. Definitely would need MRI imaging of the brain with the newfound right upper lobe mass
-CT head No acute intracranial abnormality compatible with chronic small vessel ischemic disease mild global peripheral volume loss
#Right-sided carotid bruit history PAD/CAD
- Ultrasound noted with coronary artery disease close of 50 to 69% on the left and close to 50% on the right.
- Follow-up with vascular as before.
#Recent acute Constipation 05/19/2025-- large size stool bolus in rectal vault, has since passed
#Heme positive stool was due to to severe constipation, possibly hemorrhoids
#PAD s/p Right Iliac Stent and Right Femoral Endarterectomy
#HLD
-Continue statin, aspirin
Hold Xarelto due to right femoral neck fracture
#Essential Hypertension
Blood pressure not under goal
-Continue candesartan, beta-jackeline
- Add as needed hydralazine
#GERD
Continue PPI twice daily
#Anxiety/Depression/Insomnia
-Continue lorazepam as needed
#Tobacco Use Disorder
-Encourage smoking cessation
-Offer Nicorette gum as needed
DVT prophylaxis
SCDs
Full code
Discussed with RN
Anticipated Discharge: 24 - 48 hours
Subjective/Interval History
-
Date of Service: June 04, 2025
s/p Rt hip arthroplasty post op #1
Patient pain is okay.
Denies shortness of breath or chest pain.
No nausea vomiting. Tolerating diet.
Objective Data
-
Labs:
Laboratory Results
06/04/25
05:41
WBC 8.4
Hgb 9.9 L
Hct 29.2 L
Plt Count 197
Sodium 130 L
Potassium 4.4
Chloride 104
Carbon Dioxide 21 L
BUN 33 H
Creatinine 1.6 H
Glucose 117 H
Calcium 8.8
Vital Signs:
Vital Signs
Temp Pulse Resp BP Pulse Ox
98.2 F 85 20 151/62 95
06/04/25 07:35 06/04/25 09:23 06/04/25 07:35 06/04/25 09:23 06/04/25 07:35
I&O
06/03/25 06/04/25 06/05/25
06:59 06:59 06:59
Intake Total 940 / 940 720 / 720
Balance 940 / 940 720 / 720
Physical Exam
-
General: Comfortable
Respiratory: Non Labored Respirations; Negative Wheezes or Accessory Resp Muscle Use
Cardiac: Regular Rhythm and S1/S2; Negative Tachycardic
GI: Soft
Neuro: Awake, Alert and Oriented
Psych: Calm
Data Reviewed
-
Labs: Labs Reviewed by me
--- NOTE | 2025-06-04 15:35 | W.PN.PUL3 ---
Today's Communication / Plan
-
Continue with management per primary service
Pain control
Remains on Xarelto therapy 2.5 mg twice a day
Patient high risk for thromboembolic disease. This will need to be followed
Abnormal chest x-ray noted. She will need close follow-up post to discharge given risk of lung cancer
Disposition efforts
Assessment
-
69-year-old smoking female with history of COPD, PAD on Xarelto status post right iliac stent, hypertension, hyperlipidemia, reflux, anxiety and depression who tripped and fell while taking her compression socks off yesterday resulting in right hip
fracture-pulmonary consulted for preop clearance/COPD/shortness of breath 06/03/2025.
Mechanical fall status post right proximal femoral neck fracture
COPD without acute exacerbation
ABG 06/02/25-/7.43
Right upper lobe mass-large right upper lobe new since 2022
Tobacco abuse
Chronic hyponatremia due to alcohol use-serum sodium 130
Mild leukocytosis-WBC 11.2
Renal insufficiency
Moderate to severe aortic regurgitation
Protein calorie malnutrition
Conditions present prior to admission:
Last hospitalization-discharged 02/25/2023-right femoral endarterectomy with bovine patch angioplasty, right iliac angioplasty/stent and lithotripsy
COPD.
Cigarette smoker ongoing.
Hypertension.
Hyperlipidemia.
CAD.
PSVT.
Neuropathy.
GERD.
Anxiety/depression.
Insomnia.
Chronic hyponatremia.
Constipation.
Right iliac stent. . Ovarian cyst removal 1970. Bilateral cataract.
Plan/recommendations
Patient is status post right femoral neck fracture with hip arthroplasty 06/03
She is without complaints at this time
Unfortunate patient continues to smoke
Reviewed images
Right upper lobe mass noted
Moving forward
Continue with management per primary service
Continue with outpatient inhaler regimen, nebulized therapy
Incentive spirometry
Large new right upper lobe mass noted
Plan stabilized postoperatively CT chest is recommended
Bedside spirometry for baseline
Discussions in regards to level of workup and treatment desired by patient willingness to
Reviewed with patient possibility of lung cancer given smoking history
She will require outpatient follow-up in the short-term
Smoking cessation counseling ongoing
Nicotine patch
Cardiology evaluation ongoing
Echocardiogram summarized below
DVT prophylaxis-Xarelto 2.5 mg twice a day. She was on this for vascular reasons. This will continue
GI prophylaxis-on pantoprazole
Nutrition physical and Occupational Therapy
Disposition efforts
Diagnostic data:
Chest x-ray 01/20/23-COPD changes, no acute radiographic abnormalities
Chest x-ray 06/02/2025-new large right upper lobe pulmonary mass
Echocardiogram 06/02/2025-EF 60-65%, aortic sclerosis without stenosis, moderate to severe aortic regurgitation
Subjective Data
-
Date of Service:
Date of Service: June 04, 2025
Subjective:
Patient seen and examined earlier today. She is without complaints. Recent left hip replacement noted. Pain is controlled.. She continues to smoke
Objective Data
Data Reviewed
Vital Signs / I&O / Oxygen:
Vital Signs
Temp Pulse Resp BP Pulse Ox
98.6 F 98 20 150/66 90
06/04/25 11:14 06/04/25 11:14 06/04/25 11:14 06/04/25 11:14 06/04/25 11:14
Intake and Output
06/03/25 06/04/25 06/05/25
06:59 06:59 06:59
Intake Total 940 / 940 720 / 720
Balance 940 / 940 720 / 720
SaO2 90
Nasal Cannula flow liters per 2.5
minute
Physical Exam
General: Comfortable
HEENT: Normocephalic and Anicteric
Cardiovascular: S1-S2, Regular Rhythm, Murmur (n) and Rub (n)
Respiratory: Wheeze (n), Crackles (n), Rhonchi (n) and Non-Labored Respirations
GI: Soft, Non Distended and Non Tender
Neurology: Awake, Alert and No Motor Deficits (Moves all extremities, left lower extremity weak)
Skin: Good Color (n), Jaundice (n) and Rash (n)
Labs/Micro/Reports
Lab Data
06/04/25 05:41
06/04/25 05:41
Microbiology
06/01/25 22:08 Urine Urine Culture - Final
[2025-06-04] MEDS: APRESOLINE 5 MG IV (16:46)
[2025-06-04] MEDS: COLACE PO ×2 (20:25→20:26)
[2025-06-04] MEDS: SENOKOT PO ×2 (20:25→20:26)
[2025-06-04] MEDS: VITAMIN B1 100 MG PO (20:26)
[2025-06-04] MEDS: ATIVAN 1 MG PO (20:26)
[2025-06-04] MEDS: PROTONIX PO ×2 (20:26)
[2025-06-04] MEDS: SENOKOT-S PO ×2 (20:26)
[2025-06-05 06:42] LABS: Hematocrit 28.0 % (37.0-47.0); Hemoglobin 9.7 g/dL (12.0-16.0); Mean Corp Hgb Conc. 34.6 g/dL (33.0-37.0); Mean Corpuscular Volume 100.0 fL (81.0-99.0); Platelet Count 190 10^3/uL (130-400); Red Cell Dist. Width 12.7 % (11.5-14.5)
[2025-06-05 07:07] LABS: Blood Urea Nitrogen 34 mg/dl (7-17); Calcium 9.4 mg/dl (8.4-10.2); Carbon Dioxide 24 mmol/L (22-30); Chloride 107 mmol/L (98-107); Estimated Creatinine Clearance 24 ml/min; Glucose 105 mg/dl (70-99); Potassium 4.0 mmol/L (3.5-5.1); Sodium 135 mmol/L (135-145); eGFR 40.22
[2025-06-05] MEDS: PULMICORT 0.5 MG INH (07:55)
[2025-06-05] MEDS: SPIRIVA RESPIMAT 2.5 MCG 2 PUFF INH (07:55)
[2025-06-05] MEDS: VENTOLIN NEBULES 2.5 MG INH (07:55)
[2025-06-05 08:08] VITALS: BP 175/78
[2025-06-05] MEDS: APRESOLINE 5 MG IV ×3 (08:11→23:05)
[2025-06-05] MEDS: PROTONIX 40 MG PO (08:12)
[2025-06-05] MEDS: CRESTOR 20 MG PO (08:12)
[2025-06-05] MEDS: ATACAND 32 MG PO (08:12)
[2025-06-05] MEDS: XARELTO 1.25 MG PO (08:12)
[2025-06-05] MEDS: NICODERM TRANSDERMAL 14 MG TRANSDERM (08:14)
[2025-06-05] MEDS: MIRALAX 17 GRAMS PO (08:14)
[2025-06-05] MEDS: TYLENOL 650 MG PO (08:14)
[2025-06-05] MEDS: BYSTOLIC 5 MG PO (08:14)
[2025-06-05] MEDS: SENOKOT 17.2 MG PO (08:15)
[2025-06-05] MEDS: VITAMIN B1 100 MG PO (08:16)
[2025-06-05] MEDS: COLACE 100 MG PO (08:17)
[2025-06-05] MEDS: SENOKOT-S 1 TABLET PO (08:17)
[2025-06-05] MEDS: LYRICA 50 MG PO (08:17)
[2025-06-05] MEDS: FOLVITE 1 MG PO (08:17)
--- NOTE | 2025-06-05 09:05 | W.PN.UPDATE ---
Update Note
Progress Note Update
Patient with significant cognitive impairment. When I evaluated her this morning, her right leg was hanging off the side of the bed. She mentions she was trying to get out of bed. I helped her back up into bed, and fortunately leg lengths appear
equal and without rotational deformity. I discussed with nursing the need to get better observation (possible one-to-one nursing) to prevent patient self-harm.
[2025-06-05 09:46] VITALS: BP 169/76; PULSE 93; O2SAT 90
[2025-06-05] MEDS: ZOFRAN 4 MG IV (10:21)
--- NOTE | 2025-06-05 10:34 | CM ---
Reviewed the chart notes and spoke with the patient at the bedside. Discuss rehab. Patient selected [facility]. Referral sent in [facility] with [facility]. CM continues to be available to patient/family and is monitoring medical plan for needs at discharge.
Plan: Discharge to SNF/rehab once medically stable, bed secured, and auth obtained.
[2025-06-05 14:17] VITALS: BP 181/74
--- NOTE | 2025-06-05 14:30 | W.PN.HOSP.TC ---
Today's Communication/Plan
-
Keep NPO. Obtain speech eval.
Start on maintenance IV fluids.
Obtain a CT of the neck.
Started on DuoNebs.
Assessment / Plan
Assessment / Plan
#Mechanical fall with right proximal femoral neck fracture
- S/p right hip arthroplasty without immediate complications.
- Continue pain regimen PT OT eval.
- WBAT to RLE with walker. THPs x6-8 weeks.
- Modified Xarelto DVT ppx.
-Case management to look into disposition.
# Anemia -change in HH post op noted -no external bleeding . Stable HH in 9s. suspect sec to acute blood loss
#Asymptomatic hypoxia saturations 88 to 90% on room air at rest. History of COPD and ongoing tobacco use. Started on oxygen as needed to keep saturations more than 91% on room air. Chest x-ray shows new large right upper lobe pulmonary mass.
#Right upper lobe mass-current smoker. Unlikely malignant. Need evaluation - Pulm plannig on OP Bronch &biopsy.
#Active smoker
#COPD�with reactive airways today
-Smoking three-quarter pack a day x 50+ years
-Cessation advised
-Continue budesonide
-Add duonebs and consider steroids if persistent wheeze
- Continue with oxygen therapy. Would need home O2 eval once on her feet.
#Dysphagia - new issue today -no oral or lip swelling, no thrush. Hold on PO, speech eval. Obtain CT neck.
#Chronic hyponatremia
Urine Na suggest avid uptake suggestive possible of volume depletion .Na normal .DC FR
#Alcohol use disorder
Patient drinks 16 ounces of wine daily last drink was yesterday 05/31/2025 evening she drinks 5 times a week. No prior alcohol withdrawal.
- MSAs screen per protocol
-Cessation advised
- No evidence of withdrawal so far.
# Cognitive impairment
-reported by sister for the past year
#Reported staring episodes x 6 months
Witnessed staring episode in hospital by myself lasting approximately 1 minute patient unaware
-Cognitive impairment assessment: Mini cog 1 out of 5 correct
-Recommend outpatient MRI brain and neuropsychological testing. Definitely would need MRI imaging of the brain with the newfound right upper lobe mass
-CT head No acute intracranial abnormality compatible with chronic small vessel ischemic disease mild global peripheral volume loss
#Right-sided carotid bruit history PAD/CAD
- Ultrasound noted with coronary artery disease close of 50 to 69% on the left and close to 50% on the right.
- Follow-up with vascular as before.
#Recent acute Constipation 05/19/2025-- large size stool bolus in rectal vault, has since passed
#Heme positive stool was due to to severe constipation, possibly hemorrhoids
#PAD s/p Right Iliac Stent and Right Femoral Endarterectomy
#HLD
-Continue statin, aspirin
Hold Xarelto due to right femoral neck fracture
#Essential Hypertension
Blood pressure not under goal
-Continue candesartan, beta-jackeline
- Add as needed hydralazine
#GERD
Continue PPI twice daily
#Anxiety/Depression/Insomnia
-Continue lorazepam as needed
#Tobacco Use Disorder
-Encourage smoking cessation
-Offer Nicorette gum as needed
DVT prophylaxis
SCDs
Full code
Discussed with RN
DW Pulm - plan to do OP Bronch/Bx
Total time spent on today's encounter was 52 minutes which included time spent in counseling the patient/family regarding diagnosis and treatment plan as listed above, goals of care, and symptom management. Case was discussed with nursing staff,
specialists, and care coordinators/case management. All labs and imaging personally reviewed by me. Remainder the time spent in detailed review of previous records, lab data, imaging, and other medical provider documentation.
Anticipated Discharge: > 48 hours
Subjective/Interval History
-
Date of Service: June 05, 2025
Today complaints of swallowing difficulty to both solids and liquids.
Some throat pain
Denies SOB or wheeze
Cough present
No CP
No N/V
Rt hip pain is ok
Objective Data
-
Labs:
Laboratory Results
06/05/25
06:31
WBC 12.4 H
Hgb 9.7 L
Hct 28.0 L
Plt Count 190
Sodium 135
Potassium 4.0
Chloride 107
Carbon Dioxide 24
BUN 34 H
Creatinine 1.4 H
Glucose 105 H
Calcium 9.4
Vital Signs:
Vital Signs
Temp Pulse Resp BP Pulse Ox
99.4 F 92 22 181/74 92
06/05/25 14:17 06/05/25 14:19 06/05/25 14:17 06/05/25 14:19 06/05/25 14:17
I&O
06/04/25 06/05/25 06/06/25
06:59 06:59 06:59
Intake Total 720 / 720 100 / 100
Output Total 450 / 450
Balance 720 / 720 -350 / -350
Physical Exam
-
General: Comfortable
HEENT: Other (No lip or tongue swelling. No thrush orally)
Respiratory: Wheezes (bilateral) and Non Labored Respirations; Negative Accessory Resp Muscle Use
Cardiac: Regular Rhythm and S1/S2; Negative Tachycardic
GI: Soft and Nontender
Neuro: AO x 3
Psych: Calm
Data Reviewed
-
Labs: Labs Reviewed by me
--- NOTE | 2025-06-05 14:55 | W.PN.UPDATE ---
Update Note
Progress Note Update
Ms. Campos is POD2 following her right hip hemiarthroplasty for femoral neck fracture. Patient seen on AM arounds around 730. She was resting comfortably at that time. Denies pain in the hip.
Directed exam of the right lower extremity reveals strikethrough of blood on the dressing, otherwise dry and intact. No significant tenderness to palpation about the hip. Thigh soft and compressible. Calf soft and nontender. Patient able to wiggle
toes, plantar and dorsiflex ankle. Neurovascularly intact distally.
Hgb 9.7 this AM.
69 yo F POD2 right hip hemiarthroplasty for femoral neck fracture under the direction of Dr. Wright
--WBAT to RLE with walker. THPs x6-8 weeks. We appreciate the assistance of PT/OT.
--Modified Xarelto DVT ppx.
--Pain control prn. Ice and elevation for pain and edema control.
--Maintain surgical dressing until 7-10 days post-op. Staple removal at 2 weeks post-op.
--Hgb 9.7 this AM. Continue to monitor.
--Case management consult for dc planning.
--Patient stable post-operatively from an orthopedic standpoint. Orthopedics will sign off for now. Please reach out with any additional orthopedic questions or concerns.
[2025-06-05] MEDS: LR 1000 IV (14:59)
[2025-06-05] MEDS: SOLU-CORTEF 200 MG IV (15:03)
[2025-06-05] MEDS: BENADRYL 50 MG IV (15:04)
[2025-06-05] MEDS: DUONEB 3 ML INH ×2 (15:33→21:29)
[2025-06-05 15:36] VITALS: BP 159/74
--- NOTE | 2025-06-05 15:38 | W.PN.PUL3 ---
Today's Communication / Plan
-
Continue with supportive care postoperatively
Follow hemoptysis
Reviewed at length with sister by phone
Tentative bronchoscopy for 06/27 or 07/04
Will not require cardiology clearance
Will need to hold Xarelto 2 days prior to procedure date
This will be clarified over the next few weeks with sister is being contact
All questions answered
Assessment
-
69-year-old smoking female with history of COPD, PAD on Xarelto status post right iliac stent, hypertension, hyperlipidemia, reflux, anxiety and depression who tripped and fell while taking her compression socks off yesterday resulting in right hip
fracture-pulmonary consulted for preop clearance/COPD/shortness of breath 06/03/2025.
Mechanical fall status post right proximal femoral neck fracture
COPD without acute exacerbation
ABG 06/02/25-33/57/7.43
Right upper lobe mass-large right upper lobe new since 2022
CT chest with 5.5 cm mass right upper lobe
Tobacco abuse
Chronic hyponatremia due to alcohol use-serum sodium 130
Mild leukocytosis-WBC 11.2
Renal insufficiency
Moderate to severe aortic regurgitation
Protein calorie malnutrition
Conditions present prior to admission:
Last hospitalization-discharged 02/25/2023-right femoral endarterectomy with bovine patch angioplasty, right iliac angioplasty/stent and lithotripsy
COPD.
Cigarette smoker ongoing.
Hypertension.
Hyperlipidemia.
CAD.
PSVT.
Neuropathy.
GERD.
Anxiety/depression.
Insomnia.
Chronic hyponatremia.
Constipation.
Right iliac stent. . Ovarian cyst removal 1970. Bilateral cataract.
Plan/recommendations
Patient is status post right femoral neck fracture with hip arthroplasty 06/03
She is without complaints at this time
Unfortunate patient continues to smoke
Reviewed images
Right upper lobe mass noted, per CT chest
Spirometry with FEV1 0.94/54%
Moving forward
Continue with management per primary service
Continue with outpatient inhaler regimen, nebulized therapy
Incentive spirometry
She will require bronchoscopy with biopsy
Given size, would recommend bronchoscopy where mediastinum can also be assessed as opposed to TTNBX
Discussions in regards to level of workup and treatment desired by patient willingness to
This was reviewed at length with sister by phone
Would prefer that patient pursue short-term rehabilitation/physical therapy, post operative rehabilitation per orthopedic protocol
Will consider telemedicine visit post discharge with possible bronchoscopic procedure set up for 06/27 or 07/04
These dates were provided to the sister where she will have to be available for transport
Sister is agreeable
Mild hemoptysis is noted. Continue with current anticoagulation, follow clinically
Cardiology correspondence also reviewed from 06/02
There is no need for clearance from cardiac standpoint for eventual lung biopsy
Xarelto will need to be held for 2 days prior to planned biopsy 06/27 or 07/04
Smoking cessation counseling ongoing
Nicotine patch
Cardiology evaluation ongoing
Echocardiogram summarized below
DVT prophylaxis-Xarelto 2.5 mg twice a day. She was on this for vascular reasons. This will continue
GI prophylaxis-on pantoprazole
Disposition efforts
Diagnostic data:
Chest x-ray 01/20/23-COPD changes, no acute radiographic abnormalities
Chest x-ray 06/02/2025-new large right upper lobe pulmonary mass
Echocardiogram 06/02/2025-EF 60-65%, aortic sclerosis without stenosis, moderate to severe aortic regurgitation
Subjective Data
-
Date of Service:
Date of Service: June 05, 2025
Subjective:
Patient is without complaints. Examined earlier this morning, late entry. She denies chest pain, shortness of breath. Hip pain appears to be controlled. There is some mild hemoptysis at the bedside, patient is not aware.
Objective Data
Data Reviewed
Vital Signs / I&O / Oxygen:
Vital Signs
Temp Pulse Resp BP Pulse Ox
99.4 F 92 22 181/74 92
06/05/25 14:17 06/05/25 14:19 06/05/25 14:17 06/05/25 14:19 06/05/25 14:17
Intake and Output
06/04/25 06/05/25 06/06/25
06:59 06:59 06:59
Intake Total 720 / 720 100 / 100
Output Total 450 / 450
Balance 720 / 720 -350 / -350
SaO2 92
Nasal Cannula flow liters per 4
minute
Physical Exam
General: Comfortable
HEENT: Normocephalic and Anicteric
Cardiovascular: S1-S2, Regular Rhythm, Murmur (n) and Rub (n)
Respiratory: Wheeze (n), Crackles (n), Rhonchi (n) and Non-Labored Respirations
GI: Soft, Non Distended and Non Tender
Neurology: Awake, Alert and No Motor Deficits (Moves all extremities, left lower extremity weak)
Skin: Good Color (n), Jaundice (n) and Rash (n)
Labs/Micro/Reports
Lab Data
06/05/25 06:31
06/05/25 06:31
Microbiology
06/01/25 22:08 Urine Urine Culture - Final
[2025-06-05] MEDS: LYRICA PO (20:23)
[2025-06-05] MEDS: COLACE PO (20:23)
[2025-06-05] MEDS: SENOKOT-S PO (20:24)
[2025-06-05] MEDS: SENOKOT PO (20:24)
[2025-06-05] MEDS: VITAMIN B1 PO (20:24)
[2025-06-05] MEDS: TYLENOL PO (20:24)
[2025-06-05] MEDS: PROTONIX PO (20:24)
[2025-06-05] MEDS: XARELTO PO (20:25)
[2025-06-05] MEDS: VALIUM INJECTION 2 MG IV (21:45)
[2025-06-05] MEDS: ATIVAN PO (22:04)
[2025-06-05 23:15] VITALS: BP 170/79
[2025-06-06] VITALS (28 sets, daily range): BP systolic 158–227; BP diastolic 65–198
[2025-06-06] MEDS: DUONEB 3 ML INH ×2 (07:22→11:01)
[2025-06-06] MEDS: CRESTOR PO (08:45)
[2025-06-06] MEDS: SENOKOT-S PO ×3 (08:45→20:25)
[2025-06-06] MEDS: SENOKOT PO ×3 (08:45→20:25)
[2025-06-06] MEDS: XARELTO PO (08:45)
[2025-06-06] MEDS: MIRALAX PO (08:45)
[2025-06-06] MEDS: PROTONIX PO ×3 (08:45→20:25)
[2025-06-06] MEDS: COLACE PO ×3 (08:45→20:24)
[2025-06-06] MEDS: TYLENOL PO (08:45)
[2025-06-06] MEDS: VITAMIN B1 PO ×3 (08:45→20:26)
[2025-06-06] MEDS: BYSTOLIC PO (08:45)
[2025-06-06] MEDS: FOLVITE PO (08:45)
[2025-06-06] MEDS: LYRICA PO (08:45)
[2025-06-06] MEDS: ATACAND PO (08:45)
[2025-06-06 08:56] LABS: Hematocrit 29.0 % (37.0-47.0); Hemoglobin 9.7 g/dL (12.0-16.0); Mean Corp Hgb Conc. 33.4 g/dL (33.0-37.0); Mean Corpuscular Volume 101.8 fL (81.0-99.0); Platelet Count 236 10^3/uL (130-400); Red Cell Dist. Width 12.7 % (11.5-14.5)
[2025-06-06] MEDS: NICODERM TRANSDERMAL 14 MG TRANSDERM (09:03)
[2025-06-06] MEDS: APRESOLINE 5 MG IV ×3 (09:04→23:10)
--- NOTE | 2025-06-06 09:39 | PTOTSP ---
Speech Therapy Evaluation
Pt seen for bedside swallow evaluation. Pt admitted with CC of mechanical fall.�Pt reports increased difficulty swallowing since yesterday with globus sensation. Pt highly anxious. Limited tolerance of PO trials of thin liquids and puree solids. Pt
with prolonged oral hold, facial grimacing, ?audible swallow, immediate belching across all trials, and report of globus sensation following PO trials. No overt s/sx of aspiration and clear VQ across limited PO trials. Pt at risk for aspiration
given history of COPD, GERD, thyroid nodules, new large right upper lobe pulmonary mass,�and anxiety. Per imaging and MD, pt presents with upper esophageal dysfunction, may be related to dysmotility vs stricture. Suspect esophageal > pharyngeal
dysfunction.��
Recommendations:�
1.NPO with oral care�
2. VSE to determine if there is pharyngeal dysphagia and �sweep esophagus to identify overt retention or redirection that can lead to reverse aspiration
3. Further recommendations following VSE
--- NOTE | 2025-06-06 10:12 | W.PN.CD ---
Today's Communication / Plan
-
-Patient going for additional swallowing evaluation. If it turns out it is okay for her to swallow meds then would resume previous meds.
-If patient remains n.p.o. then would consider standing dose of hydralazine. Can change Nebivolol to IV Lopressor 2.5mgQ6.
- Patient going for additional swallowing evaluation shortly. Will await results
Impression / Plan
-
.
69-year-old woman with history of peripheral arterial disease, nonobstructive coronary disease by cardiac catheterization in September 2021 and hypertension who sustained a right hip fracture and is now preop. Admitted with hip fracture. Patient
underwent operative repair of hip fracture /Right hip cemented bipolar endoprosthesis by Dr. Wright.
.
Hypertension. Severely elevated blood pressure 187/83 multiple factors contributing. Patient currently not taking oral meds and is undergoing further swallowing evaluation. Patient has received IV hydralazine. Also patient with postoperative hip
pain.
-Patient going for additional swallowing evaluation. If it turns out it is okay for her to swallow meds then would resume previous meds.
-If patient remains n.p.o. then would consider standing dose of hydralazine. Can change Nebivolol to IV Lopressor 2.5Q6.
.
CAD. Nonobstructive by prior catheterization 2020. No symptoms to suggest angina. Continue medical therapy
.
PAD. -Patient with history of PAD. Right femoral endarterectomy and right iliac stent 2022 . prior vascular study with right AFUA 0.34 left AFUA 0.23. Patient has symptoms consistent with claudication prior to injury. patient follows with Dr. Adams
.
Physical Exam
Vital Signs/Labs
Vital Signs
Temp Pulse Resp BP Pulse Ox
99 F 100 16 195/87 102
06/06/25 07:20 06/06/25 09:04 06/06/25 07:25 06/06/25 09:04 06/06/25 07:25
06/06/25 08:30
PT 14.2 Sec (11.4-14.6) 06/01/25 19:22
INR 1.05 06/01/25 19:22
APTT 37.0 Sec (23.4-35.0) H 06/01/25 19:22
Magnesium 2.1 mg/dl (1.6-2.3) 06/01/25 16:01
Physical Exam
Constitutional: No acute distress and Other (Frustrated with not being able to eat)
Cardiovascular: Rhythm & rate is regular
Respiratory: Wheeze Absent and Rhonchi Absent
GI: Soft and Non tender
Neuro/Psych: Alert and Oriented
Data Reviewed
-
Date of Service: June 06, 2025
Medical Decision Making: Reviewed Test Results
Medical Tests (PFT, Pathology etc): Report Reviewed by me
Labs: Labs Reviewed by me
--- NOTE | 2025-06-06 10:13 | W.PN.PUL3 ---
Today's Communication / Plan
-
Care plan in place for outpatient bronchoscopy in Jun, will arrange OP visit for preop planning
Spirometry w/ moderate COPD, will add inhalers for her to continue as OP
Dysphagia w/u ongoing, GI consult placed
She is 98% on 3L but will likely undergo rehab following recent ortho intervention
Defer to care team on d/c planning post GI eval
Assessment
-
69-year-old smoking female with history of COPD, PAD on Xarelto status post right iliac stent, hypertension, hyperlipidemia, reflux, anxiety and depression who tripped and fell while taking her compression socks off yesterday resulting in right hip
fracture-pulmonary consulted for preop clearance/COPD/shortness of breath 06/03/2025.
Mechanical fall status post right proximal femoral neck fracture
COPD without acute exacerbation
ABG 06/02/25-/7.43
Right upper lobe mass-large right upper lobe new since 2022
CT chest with 5.5 cm mass right upper lobe
Tobacco abuse
Chronic hyponatremia due to alcohol use-serum sodium 130
Mild leukocytosis-WBC 11.2
Renal insufficiency
Moderate to severe aortic regurgitation
Protein calorie malnutrition
Conditions present prior to admission:
Last hospitalization-discharged 02/25/2023-right femoral endarterectomy with bovine patch angioplasty, right iliac angioplasty/stent and lithotripsy
COPD w/ moderate obstruction
Cigarette smoker ongoing.
Hypertension.
Hyperlipidemia.
CAD.
PSVT.
Neuropathy.
GERD.
Anxiety/depression.
Insomnia.
Chronic hyponatremia.
Constipation.
Right iliac stent. . Ovarian cyst removal 1970. Bilateral cataract.
Plan/recommendations
Patient is status post right femoral neck fracture with hip arthroplasty 06/03
She is without complaints at this time
Unfortunate patient continues to smoke
Reviewed images
Right upper lobe mass noted, per CT chest
Spirometry with FEV1 0.94/54%--moderate COPD, will add inhalers to continue as OP
COPD education
Moving forward
Continue with management per primary service
Continue with outpatient inhaler regimen, nebulized therapy
Incentive spirometry
She will require bronchoscopy with biopsy
Given size, would recommend bronchoscopy where mediastinum can also be assessed as opposed to TTNBX
Discussions in regards to level of workup and treatment desired by patient willingness to
This was reviewed at length with sister by phone
Would prefer that patient pursue short-term rehabilitation/physical therapy, post operative rehabilitation per orthopedic protocol
Will consider telemedicine visit post discharge with possible bronchoscopic procedure set up for 06/27 or 07/04
These dates were provided to the sister where she will have to be available for transport
Sister is agreeable
Mild hemoptysis is noted. Continue with current anticoagulation, follow clinically
Cardiology correspondence also reviewed from 06/02
There is no need for clearance from cardiac standpoint for eventual lung biopsy
Xarelto will need to be held for 2 days prior to planned biopsy 06/27 or 07/04
Dysphagia symptoms noted
GI consult placed
Smoking cessation counseling ongoing
Nicotine patch
Cardiology evaluation ongoing
Echocardiogram summarized below
DVT prophylaxis-Xarelto 2.5 mg twice a day. She was on this for vascular reasons. This will continue
GI prophylaxis-on pantoprazole
Disposition efforts
Diagnostic data:
Chest x-ray 01/20/23-COPD changes, no acute radiographic abnormalities
Chest x-ray 06/02/2025-new large right upper lobe pulmonary mass
Echocardiogram 06/02/2025-EF 60-65%, aortic sclerosis without stenosis, moderate to severe aortic regurgitation
Spirometry 06/03/2025: FEV1 0.88 L 50%, FVC 1.67 L 75%, ratio 53. Post FEV1 0.94 L 54% positive BD response FVC. Moderate obstruction
Total time spent on this consultation/encounter __45__ minutes which includes review of history, physical exam, medications, laboratory data, personal review of imaging, extensive review of outpatient records, discussion with care team and
respiratory therapy.
Subjective Data
-
Date of Service:
Date of Service: June 06, 2025
Chief Complaint: Pulmonary Follow Up
Subjective:
Having occasional panic breaths, she feels overall the same, no SOB
Dysphagia noted
Objective Data
Data Reviewed
Vital Signs / I&O / Oxygen:
Vital Signs
Temp Pulse Resp BP Pulse Ox
99 F 100 16 195/87 102
06/06/25 07:20 06/06/25 09:04 06/06/25 07:25 06/06/25 09:04 06/06/25 07:25
Intake and Output
06/05/25 06/06/25 06/07/25
06:59 06:59 06:59
Intake Total 100 / 100 480 / 480
Output Total 450 / 450 200 / 200
Balance -350 / -350 280 / 280
SaO2 102
Nasal Cannula flow liters per 3
minute
Physical Exam
General: Comfortable
HEENT: Normocephalic and Anicteric
Cardiovascular: S1-S2, Regular Rhythm, Murmur (n) and Rub (n)
Respiratory: Wheeze (n), Crackles (n), Rhonchi (n) and Non-Labored Respirations
GI: Soft, Non Distended and Non Tender
Neurology: Awake, Alert and No Motor Deficits (Moves all extremities, left lower extremity weak)
Skin: Good Color (n), Jaundice (n) and Rash (n)
Labs/Micro/Reports
Lab Data
06/06/25 08:30
Microbiology
06/01/25 22:08 Urine Urine Culture - Final
--- NOTE | 2025-06-06 10:29 | CM ---
Patient chart reviewed
Video Swallow today
Referral in [place] [facility] for [facility]
will need ins auth
PLAN: SNF, pending bed availability when stable, will need ins auth
[2025-06-06] MEDS: APRESOLINE IV (11:00)
--- NOTE | 2025-06-06 11:47 | CON.GI ---
Addendum entered and electronically signed by Michael Bullock MD 06/06/25 14:35:
I saw and examined the patient.
The FURNITURE SANDER or PA's note was reviewed and I agree with the note.
Comment: 69yo female admitted with R hip fx went to OR 06/03. Post op she was evaluated for dysphagia. Chest CT shows RUL mass and food/debris filled esophagus. Limited Ba swallow showed esopahgeal obstruction. Denies dsphagia prior to admission.
Rec'd xarelto yest am. No prior EGD
REC:
I reviewed CT images which shows extensive debris in esophagus
Will proceed with EGD to remove food, evaluate for obstruction with general anesthesia to minimize aspiration risk
given recent xarelto, will be careful to avoid excessive mucosal trauma
Original Note:
Consultation
-
Date/Time Consultation Requested: 06/06/25 1115
Date/Time Consultation Performed: 06/06/25 1145
Requesting Provider: Edgardo Izquierdo MD
Performing Provider: LIZBETH Lawson, Michael Bullock MD
Reason for Consultation: dysphagia
Medical History
Chief Complaint / HPI
History of Present Illness:
Pt is a 69yo with hx PSVT, PAD on Xarelto s/p right iliac stent, CAD, COPD, TIA GERD, HTN, hypercholesterolemia, anxiety/depression,ETOH/tobacco use, constipation, hyponatremia, who presents 06/01 with fall with hip fracture s/p repair now asked
to see if noted dysphagia. During admission Pt completed CXR on admission with concern for new large upper lobe mass. She completed CT chest 06/05 with RUL noted mass 5.5 cm concern for malignancy, with with 8 mm nodule, LLL consolidation and
bronchioles with mucous plugging, changes on emphysema, but also noted esophagus nearly dilated with mild wall thickening and concern for dysmotility vs distal esophageal stricture. t/c EGD and also noted thickening of proximal stomach with severe
coronary calcification. CT neck with noted extensive debris in esophagus. Pt completed VSE this am with report pending.
In review with patient she denies difficulty with swallowing prior to admission. She is noted with difficulty with solid and liquids and concern for aspiration with coughing up brownish mucous overnight. She admits to feeling of liquids and
solid stopping in upper esophagus and unable to pass. She otherwise admits to some odynophagia, constipation but denies nausea, diarrhea or rectal bleeding. She denies hx EGD but admits to several colonoscopies in past.
Past Medical History
Past Medical History: Arrhythmias (PSVT), CAD, COPD, CVA (TIA), GERD, HTN, Hypercholesterolemia, Psychiatric (anxiety/depression) and Other (neuropathy, anemia, PVT, PAD, alcohol abuse, nicotine abuse, insomnia, constipation, hyponatremia )
Past Surgical History: , Gynecological (ovarian cyst removal ) and Other (ovarian cyst removal, femoral endarterectomy, illiac stent, cataract surgery )
Social History
Tobacco: Smoker
Alcohol: Daily (2 drinks daily )
Drug: None
Employment: Retired
Family History
Family History: Reviewed & Not Pertinent
Allergies / Home Medications
Allergy/AdvReac Type Severity Reaction Status Date / Time
amlodipine Allergy Rash Verified 06/01/25 14:24
Cephalosporins Allergy Rash Verified 06/01/25 18:36
duloxetine (From Cymbalta) Allergy Rash Verified 06/01/25 14:24
escitalopram Allergy Rash Verified 06/01/25 14:24
hydroxychloroquine (From Allergy Unknown Verified 06/01/25 14:24
Plaquenil)
Iodinated Contrast Media Allergy Rash Verified 06/01/25 14:24
penicillin V Allergy Rash Verified 06/01/25 18:36
Penicillins Allergy Rash Verified 06/01/25 18:36
prednisone Allergy Rash Verified 06/01/25 14:24
varenicline (From Chantix) Allergy nausea, Verified 06/01/25 14:24
vomiting,
diarrhea
�Medication �Instructions �Recorded
budesonide 0.5 mg/2 mL suspension 0.5 mg inhalation R BID 01/06/23
for nebulization
ipratropium 0.5 mg-albuterol 3 mg 3 ml inhalation R BID 01/06/23
(2.5 mg base)/3 mL nebulization Lung/breathing issues
soln
mbwpxkhx-nqhmpy-vubou extract 5 3 cap PO DAILY Supplement 01/06/23
mg-6 mg-150 mg capsule (Fruit and
Vegetable Daily)
pantoprazole 40 mg tablet,delayed 40 mg PO BID Gastrointestinal issue 01/06/23
release
psyllium husk 0.4 gram capsule 0.8 g PO DAILY Constipation 01/06/23
(Metamucil)
rosuvastatin 20 mg tablet 20 mg PO DAILY High cholesterol 01/06/23
rivaroxaban 2.5 mg tablet (Xarelto) 2.5 mg PO BID #90 tabs 02/07/23
candesartan 32 mg tablet 32 mg PO DAILY 05/19/24
lorazepam 1 mg tablet 1 mg PO HS 05/19/24
tiotropium bromide 1.25 2 puff inhalation R DAILY 05/19/24
mcg/actuation mist for inhalation
(Spiriva Respimat)
acetaminophen 325 mg tablet 650 mg PO BID 06/01/25
(Tylenol)
guanfacine 1 mg tablet 1 mg PO HS 06/01/25
nebivolol 5 mg tablet (Bystolic) 5 mg PO DAILY 06/01/25
polyethylene glycol 3350 17 gram 17 g PO DAILY 06/01/25
oral powder packet (Miralax)
pregabalin 50 mg capsule 50 mg PO BID mild Pain 06/01/25
Review of Systems
-
Constitutional: Reports Weight Loss and Other (dysphagia with solids and liquids, dry mouth)
EENT: Reports No Symptoms
Respiratory: Reports No Symptoms
Cardiac: Reports No Symptoms
Abdomen/GI: Reports Constipated
: Reports No Symptoms
Musculoskeletal: Reports Joint Pain (with recent fracture )
Neurological: Reports Weakness
Endocrine: Reports No Symptoms
Hematologic/Lymphatic: Reports No Symptoms
Vital Signs
Temp Pulse Resp BP Pulse Ox
99 F 95 16 195/87 98
06/06/25 07:20 06/06/25 11:05 06/06/25 11:05 06/06/25 09:04 06/06/25 11:05
Physical Exam
Exam
General: Other (thin female awake and alert with dry mouth with thick speech in exam )
HEENT: Normocephalic and Anicteric
Respiratory: Other (decreased bases )
Cardiac: Regular Rhythm and Other (tachy low 100's)
GI: Soft, Non Tender and Non Distended
Musculoskeletal: No Clubbing and No Cyanosis
Skin: Warm and Dry
Neuro: Awake and Alert
Psych: Calm
Results
WBC 12.5 10^3/uL (4.8-10.8) H 06/06/25 08:30
Hgb 9.7 g/dL (12.0-16.0) L 06/06/25 08:30
Hct 29.0 % (37.0-47.0) L 06/06/25 08:30
MCV 101.8 fL (81.0-99.0) H 06/06/25 08:30
Plt Count 236 10^3/uL (130-400) D 06/06/25 08:30
Absolute Neuts (auto) 6.8 10^3/uL (1.4-6.5) H 06/01/25 16:01
PT 14.2 Sec (11.4-14.6) 06/01/25 19:22
INR 1.05 06/01/25 19:22
APTT 37.0 Sec (23.4-35.0) H 06/01/25 19:22
Sodium Cancelled 06/06/25 08:30
Potassium Cancelled 06/06/25 08:30
Chloride Cancelled 06/06/25 08:30
Carbon Dioxide Cancelled 06/06/25 08:30
BUN Cancelled 06/06/25 08:30
Creatinine Cancelled 06/06/25 08:30
Calcium Cancelled 06/06/25 08:30
Total Bilirubin 0.5 mg/dl (0.2-1.3) 06/01/25 16:01
AST 25 U/L (14-36) 06/01/25 16:01
ALT 20 U/L (0-35) 06/01/25 16:01
Alkaline Phosphatase 63 U/L (38-126) 06/01/25 16:01
Diagnostic Image Results:
- CT neck
There are multiple heterogeneous, mildly hypodense thyroid nodules measuring up to 1.0 cm the right hemithyroid. Recommend dedicated thyroid ultrasound for further evaluation.
Extensive debris, likely ingested contents, and throughout the visualized upper esophagus which is overall similar to prior and may related to dysmotility or stricture. Consider further evaluation with endoscopy.
Redemonstration of the large right upper lobe pulmonary mass, concerning for malignancy.
06/05/25 CT chest
1. Right upper lobe mass measuring up to 5.5 cm in diameter as above, highly suspicious for pulmonary malignancy.
2. Right lower lobe 8 mm nodule.
3. Left lower lobe moderate area of atelectasis/consolidation as above with opacification of some bronchioles likely related to mucous plugging. No clear mass is identified at this level at noncontrast CT, could be further evaluated with
contrast-enhanced exam as warranted.
4. Emphysema.
5. Esophagus nearly diffusely mildly dilated with mild wall thickening. Ingested material throughout the esophagus. Findings could be related to marked dysmotility versus distal esophageal stricture. This could be further evaluated with endoscopy.
There is also some apparent wall thickening of the proximal stomach.
6. Severe coronary artery calcification
06/03/25 hip X ray
Postsurgical appearance of the right hip.
06/02/25 CR Chest - 2 Views
New large right upper lobe pulmonary mass until proven otherwise.
Tiny bilateral pleural effusions versus pleural thickening. New
Prior GI Procedures:
EGD: none
Colonoscopy: several in past none at [facility]
Assessment / Plan
-
Pt is a 69yo with hx PSVT, PAD on Xarelto s/p right iliac stent, CAD, COPD, TIA GERD, HTN, hypercholesterolemia, anxiety/depression,ETOH/tobacco use, constipation, hyponatremia, who presents 06/01 with fall with hip fracture s/p repair now asked
to see if noted dysphagia. During admission Pt completed CXR on admission with concern for new large upper lobe mass. She completed CT chest 06/05 with RUL noted mass 5.5 cm concern for malignancy, with with 8 mm nodule, LLL consolidation and
bronchioles with mucous plugging, changes on emphysema, but also noted esophagus nearly dilated with mild wall thickening and concern for dysmotility vs distal esophageal stricture. t/c EGD and also noted thickening of proximal stomach with
severe coronary calcification. CT neck with noted extensive debris in esophagus. Pt completed VSE this am with report pending. In review with patient she denies difficulty with swallowing prior to admission. She is noted with difficulty with
solid and liquids and concern for aspiration with coughing up brownish mucous overnight. She admits to feeling of liquids and solid stopping in upper esophagus and unable to pass. She otherwise admits to some odynophagia, and constipation. She
denies hx EGD but admits to several colonoscopies in past.
-new onset dysphagia
-CT chest with dilated esophagus with mild wall thickening/proximal stomach thickening
-new right Upper lobe large lung mass
-s/p fall with hip fracture and repair
-anemia -macrocytic
-constipation
-uncontrolled HTN
-elevated creat
hypokalemia
other med problems:
-PSVT
- PAD on Xarelto s/p right iliac stent
- CAD
- COPD
-TIA
-GERD
- HTN
- hypercholesterolemia
-anxiety/depression
-ETOH/tobacco use
- hyponatremia
PLAN:
etiology of dysphagia related to dysmotility, esophageal stricture, food impaction with noted debris in esophagus vs other --- also noted large RUL lung mass new on imaging on admission
await report of VSE
t/c EGD-- not sure if could tolerated contrast for esophagram
Pt remains on Xarelto with dose given last 06/05 AM
currently unable to take pill
pt was on Miralax and senna for bowel regiment on hold with NPO status
replete K per hospitalist
-
-
Thank you for consultation and allowing me to participate in the patient's care. Please call the overhead distribution engineer GI physician during the after hours with any questions or concerns.
[2025-06-06 11:57] LABS: Blood Urea Nitrogen 41 mg/dl (7-17); Calcium 10.0 mg/dl (8.4-10.2); Carbon Dioxide 23 mmol/L (22-30); Chloride 110 mmol/L (98-107); Estimated Creatinine Clearance 22 ml/min; Glucose 103 mg/dl (70-99); Potassium 3.4 mmol/L (3.5-5.1); Sodium 142 mmol/L (135-145); eGFR 37.03
[2025-06-06 12:05] LABS: Glucose - Point of Care 107 mg/dl (70-99)
--- NOTE | 2025-06-06 13:49 | PTOTSP ---
Speech Therapy VSE:
VSE was limited given early termination of study with esophageal findings. Study was limited to thin liquids via teaspoon and cup prior to deferment as recommended by radiologist. With limited consistencies, patient presented with functional oral
phase and at least mild pharyngeal phase dysphagia. There was deep laryngeal penetration to the vocal folds with thin liquids via cup. Contrast was not seen to pass through the esophagus, leading to deferment of further PO trials. Contrast was also
observed to redirect to the level of the pyriforms, increasing risk of reverse aspiration. For further assessment of oropharyngeal swallow, recommend repeat study following potential esophageal intervention.
Recommend:
1. Strict NPO
2. Medications non-oral
3. Not appropriate for ARHP at this time
4. Consider GI consult given CT imaging and findings of VSE
5. REFINER OPERATOR to follow for education regarding VSE findings and recommendations with further intervention pending hospitalization
[2025-06-06] MEDS: SPIRIVA RESPIMAT 2.5 MCG INH (15:12)
--- NOTE | 2025-06-06 16:04 | W.PN.UPDATE ---
Update Note
Progress Note Update
EGD done
Large amount of food debris in entire esophagus removed w rescue net, allgiator forceps.
Grade D esophagitis throughout esophagus due to food impation/erosion
Mild Schatzki's ring
Minimal bleeding from procedure, stopped spontaneously
REC:
Clears tonight
PPI
[2025-06-06] MEDS: TRANDATE 5 MG IV ×2 (16:44→17:14)
[2025-06-06 17:07] LABS: Blood Urea Nitrogen 41 mg/dl (7-17); Calcium 9.6 mg/dl (8.4-10.2); Carbon Dioxide 24 mmol/L (22-30); Chloride 112 mmol/L (98-107); Estimated Creatinine Clearance 22 ml/min; Glucose 104 mg/dl (70-99); Magnesium 2.3 mg/dl (1.6-2.3); Potassium 3.3 mmol/L (3.5-5.1); Sodium 143 mmol/L (135-145); eGFR 37.03
--- NOTE | 2025-06-06 17:13 | W.PN.HOSP.TC ---
Today's Communication/Plan
-
Status post EGD.
Clear liquid diet
Aspiration precautions.
Resume preadmission oral medications
Assessment / Plan
Assessment / Plan
Impression:
Right proximal femoral neck fracture secondary to mechanical trauma and osteoporosis
Aspiration syndrome secondary to esophageal food impaction.
Acute anemia
Conditions prior to admission:
Right upper lobe mass new since 2022.
Suspected chronic hypoxic respiratory failure with asymptomatic hypoxia with pulse ox of 88-90% on room air at rest
Tobacco use disorder.
Chronic hyponatremia.
COPD without exacerbation.
Essential hypertension
CAD/PAD.
Neuropathy.
GERD.
Anxiety/depression.
Alcohol use disorder without evidence of withdrawal
Protein calorie malnutrition with BMI of 19.
Plan
Mechanical fall with right proximal femoral neck fracture
- S/p right hip arthroplasty without immediate complications.
- Continue pain regimen PT OT eval.
- WBAT to RLE with walker. THPs x6-8 weeks.
- Modified Xarelto DVT ppx.
-Case management to look into disposition.
Acute anemia, multifactorial secondary to postoperative blood loss and dilution. Hemoglobin trending down 12.3�9.7. Monitor closely.
Asymptomatic hypoxia saturations 88 to 90% on room air at rest. History of COPD and ongoing tobacco use. Started on oxygen as needed to keep saturations more than 91% on room air. Chest x-ray shows new large right upper lobe pulmonary mass.
#Right upper lobe mass-current smoker. Unlikely malignant. Need evaluation - Pulm plannig on OP Bronch &biopsy.
#Active smoker
#COPD�with reactive airways today
-Smoking three-quarter pack a day x 50+ years
-Cessation advised
-Continue budesonide
-Add duonebs and consider steroids if persistent wheeze
- Continue with oxygen therapy. Would need home O2 eval once on her feet.
Outpatient follow-up with pulmonology for further evaluation of the right upper lobe mass, once overall performance status improved/post rehab
Dysphagia and aspiration secondary to esophageal impaction
Noted on presentation imaging as well as VSE
GI consultation
Status post post EGD on 06/06 with findings of a large amount of food debris in the entire esophagus removed. Grade D esophagitis throughout the esophagus due to food impaction/erosion. Mild Schatzki ring.
Clear liquid diet
Resume preadmission medication regimen
Chronic hyponatremia
Urine Na suggest avid uptake suggestive possible of volume depletion .Na normal .DC FR
Alcohol use disorder without evidence of withdrawal
Patient drinks 16 ounces of wine daily last drink was yesterday 05/31/2025 evening she drinks 5 times a week. No prior alcohol withdrawal.
- MSAs screen per protocol
-Cessation advised
Cognitive impairment
-reported by sister for the past year
#Reported staring episodes x 6 months
Witnessed staring episode in hospital by myself lasting approximately 1 minute patient unaware
-Cognitive impairment assessment: Mini cog 1 out of 5 correct
-Recommend outpatient MRI brain and neuropsychological testing. Definitely would need MRI imaging of the brain with the newfound right upper lobe mass
-CT head No acute intracranial abnormality compatible with chronic small vessel ischemic disease mild global peripheral volume loss
Right-sided carotid bruit history PAD/CAD
- Ultrasound noted with coronary artery disease close of 50 to 69% on the left and close to 50% on the right.
- Follow-up with vascular as before.
Recent acute Constipation 05/19/2025-- large size stool bolus in rectal vault, has since passed
#Heme positive stool was due to to severe constipation, possibly hemorrhoids
PAD s/p Right Iliac Stent and Right Femoral Endarterectomy
#HLD
-Continue statin, aspirin
Resuming Xarelto.
Essential Hypertension
Blood pressure not under goal
-Continue candesartan, beta-jackeline
- Add as needed hydralazine
GERD
Continue PPI twice daily
Anxiety/Depression/Insomnia
-Continue lorazepam as needed
Tobacco Use Disorder
-Encourage smoking cessation
-Offer Nicorette gum as needed
DVT prophylaxis
SCDs
Full code
Discussed with RN
Anticipated Discharge: 24 - 48 hours
Subjective/Interval History
-
Date of Service: June 06, 2025
Objective Data
-
Labs:
Laboratory Results
06/06/25 06/06/25 06/06/25
08:30 11:19 16:40
WBC 12.5 H
Hgb 9.7 L
Hct 29.0 L
Plt Count 236 D
Sodium Cancelled 142 143
Potassium Cancelled 3.4 L 3.3 L
Chloride Cancelled 110 H 112 H
Carbon Dioxide Cancelled 23 24
BUN Cancelled 41 H 41 H
Creatinine Cancelled 1.5 H 1.5 H
Glucose Cancelled 103 H 104 H
Calcium Cancelled 10.0 9.6
Vital Signs:
Vital Signs
Temp Pulse Resp BP Pulse Ox
98.3 F 81 16 193/66 90
06/06/25 16:08 06/06/25 17:00 06/06/25 17:00 06/06/25 17:00 06/06/25 17:00
I&O
06/05/25 06/06/25 06/07/25
06:59 06:59 06:59
Intake Total 100 / 100 480 / 480 0 / 0
Output Total 450 / 450 200 / 200
Balance -350 / -350 280 / 280 0 / 0
Physical Exam
-
General: Well Developed and No Apparent Distress
HEENT: Normocephalic, Atraumatic and Moist Mucous Membranes
Respiratory: Clear to Auscultation
Cardiac: Regular Rhythm and S1/S2; Negative Murmur, Rub or Gallop
GI: Soft, Nontender, Nondistended and Normal Bowel Sounds; Negative Organomegaly
Rectal: Deferred by Provider
Musculoskeletal: No Clubbing, No Cyanosis and No Edema
Skin: Negative Rash
Neuro: Nonfocal/Grossly Intact
--- NOTE | 2025-06-06 19:24 | PTCARENOTE ---
Received patient from PACU via bed around 1745. Patient blood pressure still elevated at 183/[address] Izquierdo made aware and instructed the RN to give the hydralazine IV as ordered despite receiving blood pressure medications in PACU.
Timbo also made aware of the patients increase in O2 to 4L post the procedure as well as the potassium of 3.3 that was drawn in pacu. No new orders taken at that time.
[2025-06-06] MEDS: LYRICA 50 MG PO (20:25)
[2025-06-06] MEDS: XARELTO 2.5 MG PO (20:26)
[2025-06-06] MEDS: TYLENOL 650 MG PO (20:26)
[2025-06-06] MEDS: ATIVAN 1 MG PO (21:23)
[2025-06-06] MEDS: LR 1000 IV (21:32)
[2025-06-06] MEDS: ROXICODONE 5 MG PO (22:34)
[2025-06-07] VITALS (7 sets, daily range): BP systolic 119–179; BP diastolic 55–71; PULSE 87; O2SAT 90
--- NOTE | 2025-06-07 00:47 | PTCARENOTE ---
House PHOTOENGRAVING PRINTER notified of patient's occasional burst of SVT 150s-180s back to 70-80s. This occurred earlier after patient's EGD. At the time, Stat labs were ordered- K 3.3- no new orders at the time. Patient having difficulty swallowing medications. KCL
40meq IV rider ordered and administered.
--- NOTE | 2025-06-07 00:48 | W.PN.UPDATE ---
Update Note
Progress Note Update
HR went up to 150s and now back to 70's. stable VS otherwise, afebrile. K 3.3 earlier kcl 40meq Iv rider now.
[2025-06-07] MEDS: KCL 270 MEQ IV (00:58)
[2025-06-07] MEDS: LR IV ×2 (02:00→18:03)
[2025-06-07] MEDS: APRESOLINE 5 MG IV ×2 (05:16→09:42)
--- NOTE | 2025-06-07 05:33 | PTCARENOTE ---
Patient restless and confused, attempting to get OOB. Unable to redirect patient. House QUENCHER OPERATOR made aware. Soft limb restraints and 4 rails ordered.
Patient bladder scanned for 296ml
--- NOTE | 2025-06-07 06:24 | W.PN.UPDATE ---
Update Note
Progress Note Update
patient restless, trying to get out of bed. Afebrile. HR 87, RR 14, BP 166/71 93% 4LNC, voiding without difficulty, advised pain medications. Restraints in place for safety.
[2025-06-07] MEDS: SPIRIVA RESPIMAT 2.5 MCG 2 PUFF INH (07:25)
[2025-06-07 07:59] LABS: Hematocrit 27.5 % (37.0-47.0); Hemoglobin 9.0 g/dL (12.0-16.0); Mean Corp Hgb Conc. 32.7 g/dL (33.0-37.0); Mean Corpuscular Volume 102.6 fL (81.0-99.0); Platelet Count 254 10^3/uL (130-400); Red Cell Dist. Width 12.8 % (11.5-14.5)
[2025-06-07 08:50] LABS: Blood Urea Nitrogen 47 mg/dl (7-17); Calcium 9.5 mg/dl (8.4-10.2); Carbon Dioxide 22 mmol/L (22-30); Chloride 114 mmol/L (98-107); Estimated Creatinine Clearance 22 ml/min; Glucose 120 mg/dl (70-99); Magnesium 2.2 mg/dl (1.6-2.3); Potassium 4.8 mmol/L (3.5-5.1); Sodium 140 mmol/L (135-145); eGFR 37.03
--- NOTE | 2025-06-07 09:10 | W.PN.PUL3 ---
Today's Communication / Plan
-
s/p food bolus dis-impaction per GI
Speech to follow for PO access
We will pursue lung biopsy as OP, reviewed with patient
No further recs from our standpoint at this time, we will sign off-please call with questions
Assessment
-
69-year-old smoking female with history of COPD, PAD on Xarelto status post right iliac stent, hypertension, hyperlipidemia, reflux, anxiety and depression who tripped and fell while taking her compression socks off yesterday resulting in right hip
fracture-pulmonary consulted for preop clearance/COPD/shortness of breath 06/03/2025.
Mechanical fall status post right proximal femoral neck fracture
COPD without acute exacerbation
ABG 06/02/25-33/57/7.43
Right upper lobe mass-large right upper lobe new since 2022
CT chest with 5.5 cm mass right upper lobe
Tobacco abuse
Chronic hyponatremia due to alcohol use-serum sodium 130
Mild leukocytosis-WBC 11.2
Renal insufficiency
Moderate to severe aortic regurgitation
Protein calorie malnutrition
Food impaction s/p EGD with extraction 06/06/25
Conditions present prior to admission:
Last hospitalization-discharged 02/25/2023-right femoral endarterectomy with bovine patch angioplasty, right iliac angioplasty/stent and lithotripsy
COPD w/ moderate obstruction
Cigarette smoker ongoing.
Hypertension.
Hyperlipidemia.
CAD.
PSVT.
Neuropathy.
GERD.
Anxiety/depression.
Insomnia.
Chronic hyponatremia.
Constipation.
Right iliac stent. . Ovarian cyst removal 1970. Bilateral cataract.
Plan/recommendations
Patient is status post right femoral neck fracture with hip arthroplasty 06/03
Unfortunate patient continues to smoke
Reviewed images
Right upper lobe mass noted, per CT chest
She is scheduled for procedure as OP
Spirometry with FEV1 0.94/54%--moderate COPD, will add inhalers to continue as OP
COPD education
Continue with outpatient inhaler regimen, nebulized therapy
Incentive spirometry
She will require bronchoscopy with biopsy
Given size, would recommend bronchoscopy where mediastinum can also be assessed as opposed to TTNBX
Discussions in regards to level of workup and treatment desired by patient willingness to
This was reviewed at length with sister by phone
Would prefer that patient pursue short-term rehabilitation/physical therapy, post operative rehabilitation per orthopedic protocol
Will consider telemedicine visit post discharge with possible bronchoscopic procedure set up for 06/27 or 07/04
These dates were provided to the sister where she will have to be available for transport
Sister is agreeable
Mild hemoptysis is noted. Continue with current anticoagulation, follow clinically
Cardiology correspondence also reviewed from 06/02
There is no need for clearance from cardiac standpoint for eventual lung biopsy
Xarelto will need to be held for 2 days prior to planned biopsy 06/27 or 07/04
Dysphagia symptoms noted
GI consult placed--s/p removal of food impaction with noted grad D esophagitis, mild schatzki's ring
Speech eval, she is NPO
PO status to be determined
Smoking cessation counseling ongoing
Nicotine patch
Cardiology evaluation ongoing
Echocardiogram summarized below
DVT prophylaxis-Xarelto 2.5 mg twice a day. She was on this for vascular reasons. This will continue
GI prophylaxis-on pantoprazole
Disposition efforts
Diagnostic data:
Chest x-ray 01/20/23-COPD changes, no acute radiographic abnormalities
Chest x-ray 06/02/2025-new large right upper lobe pulmonary mass
Echocardiogram 06/02/2025-EF 60-65%, aortic sclerosis without stenosis, moderate to severe aortic regurgitation
Spirometry 06/03/2025: FEV1 0.88 L 50%, FVC 1.67 L 75%, ratio 53. Post FEV1 0.94 L 54% positive BD response FVC. Moderate obstruction
Total time spent on this consultation/encounter __45__ minutes which includes review of history, physical exam, medications, laboratory data, personal review of imaging, extensive review of outpatient records, discussion with care team and
respiratory therapy.
Subjective Data
-
Date of Service:
Date of Service: June 07, 2025
Chief Complaint: Pulmonary Follow Up
Subjective:
No new complaints
s/p EGD with food impaction
Objective Data
Data Reviewed
Vital Signs / I&O / Oxygen:
Vital Signs
Temp Pulse Resp BP Pulse Ox
97.8 F 75 14 179/71 96
06/07/25 07:30 06/07/25 07:30 06/07/25 07:30 06/07/25 07:30 06/07/25 07:30
Intake and Output
06/06/25 06/07/25 06/08/25
06:59 06:59 06:59
Intake Total 480 / 480 1335 / 1335
Output Total 200 / 200 200 / 200
Balance 280 / 280 1135 / 1135
SaO2 96
Nasal Cannula flow liters per 3
minute
Physical Exam
General: Comfortable
HEENT: Normocephalic and Anicteric
Cardiovascular: S1-S2, Regular Rhythm, Murmur (n) and Rub (n)
Respiratory: Wheeze (n), Crackles (n), Rhonchi (n) and Non-Labored Respirations
GI: Soft, Non Distended and Non Tender
Neurology: Awake, Alert and No Motor Deficits (Moves all extremities, left lower extremity weak)
Skin: Good Color (n), Jaundice (n) and Rash (n)
Labs/Micro/Reports
Lab Data
06/07/25 07:30
06/07/25 07:30
--- NOTE | 2025-06-07 09:26 | W.PN.CD ---
Addendum entered and electronically signed by Se Lovelace MD 06/07/25 10:29:
I saw and examined the patient independently.
The [employer] INVESTIGATOR SPECIAL AGENT's note was reviewed and I agree with the note with changes/additions below.
Comment:
69 yo female with PMH of PAD, non-obstructive CAD, HTN is admitted s/p hip fracture. Post op, having issues with dysphagia, food impaction in esophagus. Discussed with RN. Having difficult with pills, so will need IV meds for now. She reports
dysphagia is news for her. Exam with RRR, II/IV diastolic murmur at RUSB, no edema. Tele: sinus, with brief runs AT to 150.
# Paroxysmal atrial tachycardia
-difficulty swallowing home nebivolol
-will use IV lopressor q6
# HTN
-difficulty swallowing home candesartan
-will use IV hydralazine q6
# Moderate/severe AR
-monitor volume status
-outpatient f/u
Original Note:
Today's Communication / Plan
-
home BP oral meds resumed, monitor BP.
continue IV Hydralazine PRN.
Impression / Plan
-
69-year-old woman with peripheral arterial disease, nonobstructive coronary disease by cardiac catheterization in September 2021 and hypertension, who sustained a right hip fracture and is now post-op repair of hip fracture /right hip cemented
bipolar endoprosthesis by Dr. Wright.
Hypertension - Severely elevated blood pressures
- multifactorial due to pain/dysphagia and NPO for swallowing evaluation/EGD yesterday 06/06/25.
- now tolerating oral meds, resume home meds and monitor.
- titrate Nebivolol as needed.
- continue IV hydralazine PRN.
Dysphagia - acute.
- s/p EGD 06/06/25 with grade D esophagitis throughout esophagus due to food impaction/erosion (removed with net/forceps), mild Schatzki's ring.
- diet per GI.
- now on PO meds, monitor.
CAD - Nonobstructive by prior catheterization 2020.
- denies chest pain.
- continue medical therapy.
PAD - Right femoral endarterectomy and right iliac stent 2022.
- prior vascular study with right AFUA 0.34, left AFUA 0.23.
- follows with Dr. Adams as outpatient.
- continue Xarelto and Crestor.
Hypokalemia - repleted and now stable.
- monitor.
Physical Exam
Vital Signs/Labs
Vital Signs
Temp Pulse Resp BP Pulse Ox
97.8 F 75 14 179/71 96
06/07/25 07:30 06/07/25 07:30 06/07/25 07:30 06/07/25 07:30 06/07/25 07:30
06/07/25 07:30
06/07/25 07:30
PT 14.2 Sec (11.4-14.6) 06/01/25 19:22
INR 1.05 06/01/25 19:22
APTT 37.0 Sec (23.4-35.0) H 06/01/25 19:22
Magnesium 2.2 mg/dl (1.6-2.3) 06/07/25 07:30
Physical Exam
Constitutional: No acute distress
EENT: Anicteric and Moist mucous membranes
Cardiovascular: Rhythm & rate is regular
Respiratory: Respiratory effort normal
GI: Soft, Non tender and Normal bowel sounds
Neuro/Psych: Alert and Oriented
Other: Skin (warm, dry)
Data Reviewed
-
Date of Service: June 07, 2025
Medical Decision Making: Reviewed Test Results
Labs: Labs Reviewed by me
[2025-06-07] MEDS: LYRICA PO ×2 (09:38→10:02)
[2025-06-07] MEDS: XARELTO PO ×2 (09:38→10:03)
[2025-06-07] MEDS: CRESTOR PO ×2 (09:38→10:01)
[2025-06-07] MEDS: FOLVITE PO ×2 (09:39→10:01)
[2025-06-07] MEDS: VITAMIN B1 PO ×2 (09:39→10:02)
[2025-06-07] MEDS: BYSTOLIC PO ×2 (09:40→10:01)
[2025-06-07] MEDS: TYLENOL PO ×2 (09:40→10:02)
[2025-06-07] MEDS: ATACAND PO ×2 (09:40→10:01)
[2025-06-07] MEDS: COLACE PO ×2 (09:40→09:59)
[2025-06-07] MEDS: NICODERM TRANSDERMAL 14 MG TRANSDERM (09:41)
[2025-06-07] MEDS: PROTONIX PO ×2 (09:41→10:02)
[2025-06-07] MEDS: SENOKOT-S PO ×2 (09:42→10:02)
[2025-06-07] MEDS: SENOKOT PO ×2 (09:42→10:02)
[2025-06-07] MEDS: MIRALAX PO ×2 (09:42→10:02)
--- NOTE | 2025-06-07 11:25 | W.PN.GI.CBS2 ---
Addendum entered and electronically signed by Marina Noble DO 06/07/25 15:11:
Patient seen and examined independently of LIZBETH. I agree with her note with my additions below
Patient is status post EGD with significant food disimpaction from yesterday 06/06/[address] Bullock. She had significant esophagitis and a Schatzki's ring in the distal esophagus. No dilation was done due to the amount of esophagitis and
significant food retention.
Currently, the patient is enjoying multiple clear liquids and doing well.
She denies any dysphagia or cough with eating prior to admission. She denied any heartburn, nausea, vomiting prior to admission.
Speech stated she was good for clear diet with pills crushed on pur�ed. She will undergo a VSC in the morning.
Would continue the twice daily PPI IV in the setting of her significant grade D esophagitis and mild Schatzki's ring. Her esophagus is going to take some time to heal which may affect her ability to eat solids.
At some point in her future I would repeat her EGD to ensure healing and make sure she does not need a dilation as esophagitis to this level sometimes can stricture, but that would take time
Addendum entered and electronically signed by LIZBETH Leiva 06/07/25 13:14:
reviewed with speech therapy. Plan for continued clear diet with pills crushed on pureed and repeat VSE in AM.
Original Note:
Today's Communication / Plan
-
s/p removal of food impaction with noted grad D esophagitis, mild schatzki's ring
on clear diet with still some difficulty with pills
keep upright after eating
await speech eval may need repeat VSE as incomplete with food impaction-- most I would advance would be chopped diet if able to tolerate
will change Protonix to IV BID to ensure pt is getting with some difficulty with taking pills
if persistent dysphagia may need repeat HCT with persistent dysarthric speech on eval(HCT was neg on admission 06/01) -- reviewed with Dr. Izquierdo
Pt remains on Xarelto
cont Miralax and senna for bowel regiment as last stool 06/02 will also add Dulcolax suppository today
updated nursing staff
Assessment / Plan
-
Pt is a 69yo with hx PSVT, PAD on Xarelto s/p right iliac stent, CAD, COPD, TIA GERD, HTN, hypercholesterolemia, anxiety/depression,ETOH/tobacco use, constipation, hyponatremia, who presents 06/01 with fall with hip fracture s/p repair now asked
to see if noted dysphagia. During admission Pt completed CXR on admission with concern for new large upper lobe mass. She completed CT chest 06/05 with RUL noted mass 5.5 cm concern for malignancy, with with 8 mm nodule, LLL consolidation and
bronchioles with mucous plugging, changes on emphysema, but also noted esophagus nearly dilated with mild wall thickening and concern for dysmotility vs distal esophageal stricture. t/c EGD and also noted thickening of proximal stomach with
severe coronary calcification. CT neck with noted extensive debris in esophagus. Pt completed VSE with incomplete study. In review with patient she denies difficulty with swallowing prior to admission. She is noted with difficulty with solid and
liquids and concern for aspiration with coughing up brownish mucous on 06/06. She denies hx EGD prior to admission but admits to several colonoscopies in past. 06/06 EGD with food impaction, grade D esophagitis, mild schatzki's ring.
06/06/25 EGD-- Dr. Bullock
- Food in the esophagus. Removal was successful.
- LA Grade D erosive esophagitis with no bleeding.
- Mild Schatzki ring.
- Normal stomach.
- Normal examined duodenum
06/01/25- HCT No acute intracranial abnormality noted.
-new onset dysphagia with food impaction on EGD with removal 06/06
-grade D erosive esophagitis and Schatzki's ring per EGD
-CT chest with dilated esophagus with mild wall thickening/proximal stomach thickening
-persistent dysarthric speech HCT neg 06/01
-new right Upper lobe large lung mass
-s/p fall with hip fracture and repair
-anemia -macrocytic
-constipation
-uncontrolled HTN
-elevated creat
-hypokalemia
other med problems:
-PSVT
- PAD on Xarelto s/p right iliac stent
- CAD
- COPD
-TIA
-GERD
- HTN
- hypercholesterolemia
-anxiety/depression
-ETOH/tobacco use
- hyponatremia
PLAN:
s/p removal of food impaction with noted grad D esophagitis, mild schatzki's ring
on clear diet with still some difficulty with pills
keep upright after eating
await speech eval may need repeat VSE as incomplete with food impaction-- most I would advance would be chopped diet if able to tolerate
will change Protonix to IV BID to ensure pt is getting with some difficulty with taking pills
if persistent dysphagia may need repeat HCT with persistent dysarthric speech on eval(HCT was neg on admission 06/01) -- reviewed with Dr. Izquierdo
Pt remains on Xarelto
cont Miralax and senna for bowel regiment as last stool 06/02 will also add Dulcolax suppository today
updated nursing staff
Subjective
Subjective
Date of Service: June 07, 2025
s/p EGD with food impaction on clear diet -- still with some difficulty today with coffee and pill and still some thickn speech no stools recorded
Objective
Data Reviewed
Laboratory Data:
Laboratory Results
06/07/25 07:30
06/07/25 07:30
Laboratory Results
PT 14.2 Sec (11.4-14.6) 06/01/25 19:22
INR 1.05 06/01/25 19:22
APTT 37.0 Sec (23.4-35.0) H 06/01/25 19:22
Phosphorus 3.7 mg/dl (2.5-4.5) 06/06/25 16:40
Magnesium 2.2 mg/dl (1.6-2.3) 06/07/25 07:30
Total Bilirubin 0.5 mg/dl (0.2-1.3) 06/01/25 16:01
AST 25 U/L (14-36) 06/01/25 16:01
ALT 20 U/L (0-35) 06/01/25 16:01
Alkaline Phosphatase 63 U/L (38-126) 06/01/25 16:01
Vital Signs and I&O:
Vital Signs
Temp Pulse Resp BP Pulse Ox
97.8 F 94 16 179/71 95
06/07/25 07:30 06/07/25 11:23 06/07/25 11:23 06/07/25 09:42 06/07/25 11:23
I&O
06/06/25 06/07/25 06/08/25
06:59 06:59 06:59
Intake Total 480 / 480 1335 / 1335
Output Total 200 / 200 200 / 200
Balance 280 / 280 1135 / 1135
Physical Exam
Physical Exam
HEENT: Anicteric, Moist mucous membranes and Other (persistent thick speech )
Cardiology: Normal Sinus Rhythm
Pulmonary: Rhonchi
GI: Soft, Non Distended and Non Tender
Extremities: No Edema
Neuro: Other (some tremors on exam, thick speech )
--- NOTE | 2025-06-07 11:40 | W.PN.HOSP.TC ---
Today's Communication/Plan
-
Aspiration precautions
Speech eval
Rate and BP controlled with IV meds as outlined
Assessment / Plan
Assessment / Plan
Impression:
Right proximal femoral neck fracture secondary to mechanical trauma and osteoporosis
Aspiration syndrome secondary to esophageal food impaction.
Acute anemia
Conditions prior to admission:
Right upper lobe mass new since 2022.
Suspected chronic hypoxic respiratory failure with asymptomatic hypoxia with pulse ox of 88-90% on room air at rest
Tobacco use disorder.
Chronic hyponatremia.
COPD without exacerbation.
Essential hypertension
CAD/PAD.
Neuropathy.
GERD.
Anxiety/depression.
Alcohol use disorder without evidence of withdrawal
Protein calorie malnutrition with BMI of 19.
Plan
Mechanical fall with right proximal femoral neck fracture
- S/p right hip arthroplasty without immediate complications.
- Continue pain regimen PT OT eval.
- WBAT to RLE with walker. THPs x6-8 weeks.
- Modified Xarelto DVT ppx.
-Case management to look into disposition.
Acute anemia, multifactorial secondary to postoperative blood loss and dilution. Hemoglobin trending down 12.3�9.7. Monitor closely.
Asymptomatic hypoxia saturations 88 to 90% on room air at rest. History of COPD and ongoing tobacco use. Started on oxygen as needed to keep saturations more than 91% on room air. Chest x-ray shows new large right upper lobe pulmonary mass.
#Right upper lobe mass-current smoker. Unlikely malignant. Need evaluation - Pulm plannig on OP Bronch &biopsy.
#Active smoker
#COPD�with reactive airways today
-Smoking three-quarter pack a day x 50+ years
-Cessation advised
-Continue budesonide
-Add duonebs and consider steroids if persistent wheeze
- Continue with oxygen therapy. Would need home O2 eval once on her feet.
Outpatient follow-up with pulmonology for further evaluation of the right upper lobe mass, once overall performance status improved/post rehab
Dysphagia and aspiration secondary to esophageal impaction
Noted on presentation imaging as well as VSE
GI consultation
Status post post EGD on 06/06 with findings of a large amount of food debris in the entire esophagus removed. Grade D esophagitis throughout the esophagus due to food impaction/erosion. Mild Schatzki ring.
Reported ongoing aspiration after procedure
Speech evaluation ongoing with possibly re-attempt VSE to assess oropharyngeal phase.
Resume preadmission medication regimen
Chronic hyponatremia
Urine Na suggest avid uptake suggestive possible of volume depletion .Na normal .DC FR
Alcohol use disorder without evidence of withdrawal
Patient drinks 16 ounces of wine daily last drink was yesterday 05/31/2025 evening she drinks 5 times a week. No prior alcohol withdrawal.
- MSAs screen per protocol
-Cessation advised
Cognitive impairment
-reported by sister for the past year
#Reported staring episodes x 6 months
Witnessed staring episode in hospital by myself lasting approximately 1 minute patient unaware
-Cognitive impairment assessment: Mini cog 1 out of 5 correct
-Recommend outpatient MRI brain and neuropsychological testing. Definitely would need MRI imaging of the brain with the newfound right upper lobe mass
-CT head No acute intracranial abnormality compatible with chronic small vessel ischemic disease mild global peripheral volume loss
Right-sided carotid bruit history PAD/CAD
- Ultrasound noted with coronary artery disease close of 50 to 69% on the left and close to 50% on the right.
- Follow-up with vascular as before.
Recent acute Constipation 05/19/2025-- large size stool bolus in rectal vault, has since passed
#Heme positive stool was due to to severe constipation, possibly hemorrhoids
PAD s/p Right Iliac Stent and Right Femoral Endarterectomy
#HLD
-Continue statin, aspirin
Resuming Xarelto.
Essential Hypertension
Blood pressure not under goal
-Continue candesartan, beta-jackeline
- Add as needed hydralazine
GERD
Continue PPI twice daily
Anxiety/Depression/Insomnia
-Continue lorazepam as needed
Tobacco Use Disorder
-Encourage smoking cessation
-Offer Nicorette gum as needed
DVT prophylaxis
SCDs
Full code
Discussed with RN
Anticipated Discharge: > 48 hours
Subjective/Interval History
-
Date of Service: June 07, 2025
Objective Data
-
Labs:
Laboratory Results
06/07/25
07:30
WBC 11.4 H
Hgb 9.0 L
Hct 27.5 L
Plt Count 254
Sodium 140
Potassium 4.8 D
Chloride 114 H
Carbon Dioxide 22
BUN 47 H
Creatinine 1.5 H
Glucose 120 H
Calcium 9.5
Vital Signs:
Vital Signs
Temp Pulse Resp BP Pulse Ox
97.8 F 94 16 179/71 95
06/07/25 07:30 06/07/25 11:23 06/07/25 11:23 06/07/25 09:42 06/07/25 11:23
I&O
06/06/25 06/07/25 06/08/25
06:59 06:59 06:59
Intake Total 480 / 480 1335 / 1335
Output Total 200 / 200 200 / 200
Balance 280 / 280 1135 / 1135
Physical Exam
-
General: Well Developed and No Apparent Distress
HEENT: Normocephalic, Atraumatic and Moist Mucous Membranes
Respiratory: Clear to Auscultation
Cardiac: Regular Rhythm and S1/S2; Negative Murmur, Rub or Gallop
GI: Soft, Nontender, Nondistended and Normal Bowel Sounds; Negative Organomegaly
Rectal: Deferred by Provider
Musculoskeletal: No Clubbing, No Cyanosis and No Edema
Skin: Negative Rash
Neuro: Nonfocal/Grossly Intact
--- NOTE | 2025-06-07 12:30 | PTOTSP ---
Speech Language Pathology
Pt seen for dysphagia tx. VSE terminated early 06/06 given concerns for esophageal dysphagia. EGD completed 06/06, finding food in entire esophagus (which was removed), large grade D esophagitis, mild Schatzki's ring. GI recommended not to advance
passed chopped solids. Currently ordered clear liquids, but RN reported some difficulty with meds and was holding P.O. until JUICE BAR TEAM MEMBER able to see.
Confused conversation noted at times during session. Xerostomia noted. Trialed thin liquids and puree. After first trial of thin liquids in which pt took consecutive cup sips, delayed cough noted with expectoration of thick dark mucus. Unsure if
related to aspiration or loosening of secretions. Significant amount of dark secretions noted in suction canister. No other large coughing episodes related to limited consistencies trialed (puree and thin liquids via single cup sips). However,
audible swallow noted, likely indicative of incoordination. Suspect esophageal issues negatively impacting oropharyngeal swallow at this time. Recommend repeat instrumental swallowing assessment 06/08 to allow more time for esophagus to recover.
Spoke with sister on phone following session per her request. She stated that pt has 'incoherent days' at intermittently, for at least a few months. Cognition worsened when admitted to hospital. She stated speech is not at baseline.
Recommend:
(1) Continue thin liquids (currently ordered clear liquids)
(2) VSE 06/08
(3) Aspiration precautions: single cup sips only, slow rate
(4) Meds crushed in puree as able
(5) JUICE BAR TEAM MEMBER to continue to follow
[2025-06-07] MEDS: LOPRESSOR 5 MG IV ×3 (13:39→23:32)
[2025-06-07] MEDS: PROTONIX IV 40 MG IV ×2 (13:39→20:42)
[2025-06-07] MEDS: NSS (PRESERVATIVE FREE) 10 ML IV ×2 (13:39→20:41)
[2025-06-07] MEDS: DULCOLAX RECTAL (13:40)
[2025-06-07] MEDS: APRESOLINE IV (13:40)
--- NOTE | 2025-06-07 14:48 | CM ---
CM following re: discharge planning.
Reviewed pt's chart, met with pt.
Pt is s/p removal of food impaction with noted grad D esophagitis, mild Schatzki's ring, continue supportive care.
PT and POT continue recommending SNF level of care. [facility] accepted the pt based on bed availability on the day of discharge.
D/C plan: [facility] based on bed availability on the day of discharge.
CM will follow with discharge plan updates as hospitalization progresses
--- NOTE | 2025-06-07 15:12 | PN.CDI ---
CDI
- -
CDI:
Physician Documentation Request
Admit Date: 06/01/25 17:17
Dear Doctor Timbo,
Patient admitted with right hip fracture.
Creatinine
Laboratory Tests
06/03/25 06/04/25 06/05/25
06:55 05:41 06:31
Creatinine 1.2 H 1.6 H 1.4 H
06/06/25
11:19
Creatinine 1.5 H
Could you please provide a diagnosis that supports the above lab abnormalities and additional evaluation, monitoring:
FILIBERTO
Abnormal lab value clinically insignificant
Other
Criteria for FILIBERTO*
1 Increase in serum creatinine by > or = to 0.3 mg/dL (> or = to 26.5 micromol/L) within 48 hours, OR
2 Increase in serum creatinine to > or = to 1.5 times baseline, which is known or presumed to have occurred within 7 days, OR
3 Urine volume < 0.5 nL/kg/hour for six hours
Use of terms such as suspected, likely, concern for, or probable (associated with a specific diagnosis that is being evaluated, monitored, or treated as if it exists) are acceptable and can be coded in the inpatient setting, when documented at the
time of discharge.
Thank you,
Lilia Carroll RN, BSN
CDI Specialist
tiger text
Please use your independent medical judgment in providing your response.
--- NOTE | 2025-06-07 15:18 | PN.CDI ---
CDI
- -
CDI:
Physician Documentation Request
Admit Date: 06/01/25 17:17
Dear Doctor Timbo,
Documentation includes the diagnosis of malnutrition.
[facility] note states 'Protein calorie malnutrition' as well as hospitalist note stating 'Protein calorie malnutrition with BMI of 19.'
06/02 note states 'Weight-93 lbs 3.2 oz (8-20, BMI 19.5-normal)-no weight loss per current clinical data at admission.'
To ensure the quality of the medical record, based on the above information and the recognized standards for malnutrition , could you please verify in your progress notes which of the following responses best reflects the patient's nutritional
status:
(Specify severity) Malnutrition is/was present and is a clinical diagnosis (please provide additional support in the medical record)
No nutritional deficiency
Other (please specify)
[place] Criteria ([facility] Hospitalist 2017)
2 or more criteria must be present for either
non severe or severe malnutrition
Note that the criteria differs related to the
presence of an acute or chronic illness
Acute Illness Chronic Illness
Energy Intake Non Severe: <75% for >7 days Non Severe: <75% for >1 month
Severe: <50% for >5 days Severe: <75% for >1 month
Weight Loss Non Severe: 1-2% over 1 week Non Severe: 5% over 1 month
5% over 1 month 7.5% over 3 months
7.5% over 3 months 10% over 6 months
1 year N/A 20% over 1 year
Severe: >2% over 1 week Severe: >5% over 1 month
>5% over 1 month >7.5% over 3 months
>7.5% over 3 months >10% over 6 months
1 year N/A >20% over 1 year
Body Fat Non Severe: Mild Decrease Non Severe: Mild Loss
Severe: Moderate Decrease Severe: Severe Loss
Muscle Mass Non Severe: Mild Decrease Non Severe: Mild Loss
Severe: Moderate Decrease Severe: Severe Loss
Fluid Accumulation Non Severe: Mild Accumulation Non Severe: Mild Accumulation
Severe: Moderate to severe Severe: Moderate to severe
accumulation accumulation
Reduced Cupola Worker Strength Non Severe: N/A Non Severe: N/A
Severe: Measurably reduced Severe: Measurably reduced
Use of terms such as suspected, likely, concern for, or probable (associated with a specific diagnosis that is being evaluated, monitored, or treated as if it exists) are acceptable and can be coded in the inpatient setting, when documented at the
time of discharge.
Thank you,
Lilia Carroll RN, BSN
CDI Specialist
tiger text
Please use your independent medical judgment in providing your response.
[2025-06-07] MEDS: APRESOLINE 10 MG IV ×2 (18:03→23:33)
[2025-06-07] MEDS: VITAMIN B1 100 MG PO (20:40)
[2025-06-07] MEDS: SENOKOT 17.2 MG PO (20:40)
[2025-06-07] MEDS: SENOKOT-S 1 TABLET PO (20:40)
[2025-06-07] MEDS: DULCOLAX 10 MG RECTAL (20:40)
[2025-06-07] MEDS: XARELTO 2.5 MG PO (20:41)
[2025-06-07] MEDS: TYLENOL 650 MG PO (20:41)
[2025-06-07] MEDS: COLACE 100 MG PO (20:41)
[2025-06-07] MEDS: LYRICA 50 MG PO (20:41)
[2025-06-07] MEDS: ATIVAN 1 MG PO (22:57)
[2025-06-08] VITALS (8 sets, daily range): BP systolic 131–156; BP diastolic 54–81; PULSE 85; O2SAT 88
[2025-06-08] MEDS: LOPRESSOR 5 MG IV (06:27)
[2025-06-08] MEDS: APRESOLINE 10 MG IV ×4 (06:28→23:40)
[2025-06-08] MEDS: SPIRIVA RESPIMAT 2.5 MCG 2 PUFF INH (07:28)
--- NOTE | 2025-06-08 07:44 | W.PN.CD ---
Today's Communication / Plan
-
continue IV mediccations until tolerating po safely
resume po home medications when that is deemed the case
No active cardiac issue, I will sign off
call back with questions
Impression / Plan
-
69-year-old woman with peripheral arterial disease, nonobstructive coronary disease by cardiac catheterization in September 2021 and hypertension, who sustained a right hip fracture and is now post-op repair of hip fracture /right hip cemented
bipolar endoprosthesis by Dr. Wright.
Hypertension - Severely elevated blood pressures
- multifactorial due to pain/dysphagia and NPO for swallowing evaluation/EGD yesterday 06/06/25.
-Improved with IV regimen--will continue for now
-Plan is for VSE today
-would resume typical home meds when tolerating po.
- candsartan and Nebivolol
-titrate as needed
- continue IV hydralazine PRN.
Dysphagia - acute.
- s/p EGD 06/06/25 with grade D esophagitis throughout esophagus due to food impaction/erosion (removed with net/forceps), mild Schatzki's ring.
- getting clears, but plan for VSE today
CAD - Nonobstructive by prior catheterization 2020.
- denies chest pain.
- continue medical therapy.
PAD - Right femoral endarterectomy and right iliac stent 2022.
- prior vascular study with right AFUA 0.34, left AFUA 0.23.
- follows with Dr. Adams as outpatient.
- continue Xarelto and Crestor.
Hypokalemia - repleted and now stable.
- monitor.
Subjective:
No complaint
Physical Exam
Vital Signs/Labs
Vital Signs
Temp Pulse Resp BP Pulse Ox
98.3 F 65 16 144/60 92
06/08/25 03:01 06/08/25 07:31 06/08/25 07:31 06/08/25 06:28 06/08/25 07:31
06/07/25 07:30
06/07/25 07:30
PT 14.2 Sec (11.4-14.6) 06/01/25 19:22
INR 1.05 06/01/25 19:22
APTT 37.0 Sec (23.4-35.0) H 06/01/25 19:22
Magnesium 2.2 mg/dl (1.6-2.3) 06/07/25 07:30
Physical Exam
Constitutional: No acute distress
Cardiovascular: Rhythm & rate is regular, Pedal edema is absent, JVD pressure is normal and Systolic murmur absent
Respiratory: Respiratory effort normal and Rhonchi Present (initially present then clears after a junky cough)
Neuro/Psych: AO x 3
Data Reviewed
-
Date of Service: June 08, 2025
Medical Decision Making: Review of Case with other Provider
EKG: Other (tele sinuse no sustained arrhythmia)
[2025-06-08] MEDS: NSS (PRESERVATIVE FREE) 10 ML IV ×2 (09:01→19:30)
[2025-06-08] MEDS: LYRICA 50 MG PO ×2 (09:01→19:30)
[2025-06-08] MEDS: SENOKOT 17.2 MG PO ×2 (09:01→19:30)
[2025-06-08] MEDS: PROTONIX IV 40 MG IV ×2 (09:01→19:30)
[2025-06-08] MEDS: FOLVITE 1 MG PO (09:02)
[2025-06-08] MEDS: XARELTO 2.5 MG PO ×2 (09:02→19:30)
[2025-06-08] MEDS: VITAMIN B1 100 MG PO ×2 (09:02→19:30)
[2025-06-08] MEDS: SENOKOT-S 1 TABLET PO ×2 (09:02→19:30)
[2025-06-08] MEDS: CRESTOR 20 MG PO (09:02)
[2025-06-08] MEDS: COLACE 100 MG PO ×2 (09:03→19:35)
[2025-06-08] MEDS: TYLENOL 650 MG PO ×2 (09:03→19:30)
[2025-06-08] MEDS: NICODERM TRANSDERMAL 14 MG TRANSDERM (09:04)
[2025-06-08] MEDS: MIRALAX 17 GRAMS PO (09:04)
--- NOTE | 2025-06-08 09:40 | PTOTSP ---
Speech Language Pathology
VIDEOFLUOROSCOPIC SWALLOWING EXAMINATION (VSE) completed. Pt with mild pharyngeal dysphagia with supraglottic penetration with thin liquids. No aspiration noted. Trace to mild pharyngeal residue. Suspect esophageal issues were negatively
impacting oropharyngeal swallow previously. Symptoms have been improving since EGD.
Recommend:
(1) Advancement to regular solids/thin liquids when appropriate from GI standpoint
(2) Aspiration precautions: sit upright, slow rate, intermittent cough/reswallow
(3) Meds as best tolerated (no longer need crushed in puree if preferred another day)
(4) COLLECTIONS PROFESSIONAL to continue to follow
--- NOTE | 2025-06-08 10:46 | W.PN.GI.CBS2 ---
Addendum entered and electronically signed by Marina Noble DO 06/08/25 15:49:
Patient seen and examined independently of [facility]. I agree with her note with my additions below
Patient underwent BSC this morning no aspiration would be okay for regular diet with thin liquids. Her esophagus is somewhat slow to empty on proximal imaging which is understandable in the setting of her significant esophagitis.
With plan for dysphagia 5 with chopped foods and monitor.
Pending her clinical course potential esophagram, inpatient if not progressing versus outpatient.
Bowel regimen
IV twice daily PPI, add sucralfate if needed.
Will need future EGD outpatient in a couple of months to ensure healing of the grade B esophagitis
Original Note:
Today's Communication / Plan
-
s/p removal of food impaction with noted grad D esophagitis, mild schatzki's ring
I reviewed via tiger text with speech therapy - VSE completed with some laryngeal penetration with thins but no aspiration, would be ok for regular with thin liquid on esophageal sweep distended and slow to empty
will plan for IDDS 5 with chopped foods and monitor
eventual esophagram -- inpatient if not doing diet well vs OP testing
I discussed with patient and nursing - aspiration precautions, upright for meals and 2 hours after eating
still no stool since admission on Dulcolax with senna BID and miralax (some missed dose with food impaction) s/p suppository 06/07 if not stools added Fleet enema PRN to give today
Protonix to IV BID to ensure pt is getting with some difficulty with taking pills
Pt remains on Xarelto
updated nursing staff
Assessment / Plan
-
Pt is a 69yo with hx PSVT, PAD on Xarelto s/p right iliac stent, CAD, COPD, TIA GERD, HTN, hypercholesterolemia, anxiety/depression,ETOH/tobacco use, constipation, hyponatremia, who presents 06/01 with fall with hip fracture s/p repair now asked
to see if noted dysphagia. During admission Pt completed CXR on admission with concern for new large upper lobe mass. She completed CT chest 06/05 with RUL noted mass 5.5 cm concern for malignancy, with with 8 mm nodule, LLL consolidation and
bronchioles with mucous plugging, changes on emphysema, but also noted esophagus nearly dilated with mild wall thickening and concern for dysmotility vs distal esophageal stricture. t/c EGD and also noted thickening of proximal stomach with
severe coronary calcification. CT neck with noted extensive debris in esophagus. Pt completed VSE with incomplete study. In review with patient she denies difficulty with swallowing prior to admission. She is noted with difficulty with solid and
liquids and concern for aspiration with coughing up brownish mucous on 06/06. She denies hx EGD prior to admission but admits to several colonoscopies in past. 06/06 EGD with food impaction, grade D esophagitis, mild schatzki's ring.
06/06/25 EGD-- Dr. Bullock
- Food in the esophagus. Removal was successful.
- LA Grade D erosive esophagitis with no bleeding.
- Mild Schatzki ring.
- Normal stomach.
- Normal examined duodenum
06/01/25- HCT No acute intracranial abnormality noted.
-new onset dysphagia with food impaction on EGD with removal 06/06
-grade D erosive esophagitis and Schatzki's ring per EGD
-CT chest with dilated esophagus with mild wall thickening/proximal stomach thickening
-persistent dysarthric speech HCT neg 06/01 -- improving
-new right Upper lobe large lung mass
-s/p fall with hip fracture and repair
-anemia -macrocytic
-constipation
-uncontrolled HTN - improving
-elevated creat
-hypokalemia - corrected
other med problems:
-PSVT
- PAD on Xarelto s/p right iliac stent
- CAD
- COPD
-TIA
-GERD
- HTN
- hypercholesterolemia
-anxiety/depression
-ETOH/tobacco use
- hyponatremia
PLAN:
s/p removal of food impaction with noted grad D esophagitis, mild schatzki's ring
I reviewed via tiger text with speech therapy - VSE completed with some laryngeal penetration with thins but no aspiration, would be ok for regular with thin liquid on esophageal sweep distended and slow to empty
will plan for IDDS 5 with chopped foods and monitor
eventual esophagram -- inpatient if not doing diet well vs OP testing
I discussed with patient and nursing - aspiration precautions, upright for meals and 2 hours after eating
still no stool since admission on Dulcolax with senna BID and miralax (some missed dose with food impaction) s/p suppository 06/07 if not stools added Fleet enema PRN to give today
Protonix to IV BID to ensure pt is getting with some difficulty with taking pills
Pt remains on Xarelto
updated nursing staff
Subjective
Subjective
Date of Service: June 08, 2025
on clear diet doing better with liquids and pills, s/p VSE, pt without complaints -- sleeping but arousable with some confusion as though testing was not completed yet -- thickness to speech with some improvement today
Objective
Data Reviewed
Laboratory Data:
Laboratory Results
06/07/25 07:30
06/07/25 07:30
Laboratory Results
PT 14.2 Sec (11.4-14.6) 06/01/25 19:22
INR 1.05 06/01/25 19:22
APTT 37.0 Sec (23.4-35.0) H 06/01/25 19:22
Phosphorus 3.7 mg/dl (2.5-4.5) 06/06/25 16:40
Magnesium 2.2 mg/dl (1.6-2.3) 06/07/25 07:30
Total Bilirubin 0.5 mg/dl (0.2-1.3) 06/01/25 16:01
AST 25 U/L (14-36) 06/01/25 16:01
ALT 20 U/L (0-35) 06/01/25 16:01
Alkaline Phosphatase 63 U/L (38-126) 06/01/25 16:01
Vital Signs and I&O:
Vital Signs
Temp Pulse Resp BP Pulse Ox
97.6 F 95 16 131/78 95
06/08/25 07:35 06/08/25 07:35 06/08/25 07:35 06/08/25 07:35 06/08/25 07:35
I&O
06/07/25 06/08/25 06/09/25
06:59 06:59 06:59
Intake Total 1335 / 1335 660 / 660
Output Total 200 / 200
Balance 1135 / 1135 660 / 660
Physical Exam
Physical Exam
HEENT: Anicteric and Moist mucous membranes
Cardiology: Normal Sinus Rhythm
Pulmonary: Other (course non productive cough on awakening )
GI: Soft, Non Distended and Non Tender
Extremities: No Edema
Neuro: Other (forgetful, less tremors )
--- NOTE | 2025-06-08 11:37 | W.PN.HOSP.TC ---
Today's Communication/Plan
-
Soft diet with aspiration precautions
Resume oral medications
PT
Assessment / Plan
Assessment / Plan
Impression:
Right proximal femoral neck fracture secondary to mechanical trauma and osteoporosis
Aspiration syndrome secondary to esophageal food impaction.
Acute anemia
Conditions prior to admission:
Right upper lobe mass new since 2022.
Suspected chronic hypoxic respiratory failure with asymptomatic hypoxia with pulse ox of 88-90% on room air at rest
Tobacco use disorder.
Chronic hyponatremia.
COPD without exacerbation.
Essential hypertension
CAD/PAD.
Neuropathy.
GERD.
Anxiety/depression.
Alcohol use disorder without evidence of withdrawal
Protein calorie malnutrition with BMI of 19.
Plan
Mechanical fall with right proximal femoral neck fracture
- S/p right hip arthroplasty without immediate complications.
- Continue pain regimen PT OT eval.
- WBAT to RLE with walker. THPs x6-8 weeks.
- Modified Xarelto DVT ppx.
-Case management to look into disposition.
Acute anemia, multifactorial secondary to postoperative blood loss and dilution. Hemoglobin trending down 12.3�9.7. Monitor closely.
Asymptomatic hypoxia saturations 88 to 90% on room air at rest. History of COPD and ongoing tobacco use. Started on oxygen as needed to keep saturations more than 91% on room air. Chest x-ray shows new large right upper lobe pulmonary mass.
#Right upper lobe mass-current smoker. Unlikely malignant. Need evaluation - Pulm plannig on OP Bronch &biopsy.
#Active smoker
#COPD�with reactive airways today
-Smoking three-quarter pack a day x 50+ years
-Cessation advised
-Continue budesonide
-Add duonebs and consider steroids if persistent wheeze
- Continue with oxygen therapy. Would need home O2 eval once on her feet.
Outpatient follow-up with pulmonology for further evaluation of the right upper lobe mass, once overall performance status improved/post rehab
Dysphagia and aspiration secondary to esophageal impaction
Noted on presentation imaging as well as VSE
GI consultation
Status post post EGD on 06/06 with findings of a large amount of food debris in the entire esophagus removed. Grade D esophagitis throughout the esophagus due to food impaction/erosion. Mild Schatzki ring.
Reported ongoing aspiration after procedure
Speech evaluation ongoing with repeat VSE c/w improved oropharyngeal phase
Advanced to so ft diet
Resume preadmission medication regimen
Chronic hyponatremia
Urine Na suggest avid uptake suggestive possible of volume depletion .Na normal .DC FR
Alcohol use disorder without evidence of withdrawal
Patient drinks 16 ounces of wine daily last drink was yesterday 05/31/2025 evening she drinks 5 times a week. No prior alcohol withdrawal.
- MSAs screen per protocol
-Cessation advised
Cognitive impairment
-reported by sister for the past year
#Reported staring episodes x 6 months
Witnessed staring episode in hospital by myself lasting approximately 1 minute patient unaware
-Cognitive impairment assessment: Mini cog 1 out of 5 correct
-Recommend outpatient MRI brain and neuropsychological testing. Definitely would need MRI imaging of the brain with the newfound right upper lobe mass
-CT head No acute intracranial abnormality compatible with chronic small vessel ischemic disease mild global peripheral volume loss
Right-sided carotid bruit history PAD/CAD
- Ultrasound noted with coronary artery disease close of 50 to 69% on the left and close to 50% on the right.
- Follow-up with vascular as before.
Recent acute Constipation 05/19/2025-- large size stool bolus in rectal vault, has since passed
#Heme positive stool was due to to severe constipation, possibly hemorrhoids
PAD s/p Right Iliac Stent and Right Femoral Endarterectomy
#HLD
-Continue statin, aspirin
Resuming Xarelto.
Essential Hypertension
Blood pressure not under goal
-Continue candesartan, beta-jackeline
- Add as needed hydralazine
GERD
Continue PPI twice daily
Anxiety/Depression/Insomnia
-Continue lorazepam as needed
Tobacco Use Disorder
-Encourage smoking cessation
-Offer Nicorette gum as needed
DVT prophylaxis
SCDs
Full code
Discussed with RN
Anticipated Discharge: 24 - 48 hours
Subjective/Interval History
-
Date of Service: June 08, 2025
Objective Data
-
Vital Signs:
Vital Signs
Temp Pulse Resp BP Pulse Ox
98.1 F 71 16 146/81 93
06/08/25 11:10 06/08/25 11:25 06/08/25 11:25 06/08/25 11:10 06/08/25 11:25
I&O
06/07/25 06/08/25 06/09/25
06:59 06:59 06:59
Intake Total 1335 / 1335 660 / 660 240 / 240
Output Total 200 / 200
Balance 1135 / 1135 660 / 660 240 / 240
Physical Exam
-
General: Well Developed and No Apparent Distress
HEENT: Normocephalic, Atraumatic and Moist Mucous Membranes
Respiratory: Clear to Auscultation
Cardiac: Regular Rhythm and S1/S2; Negative Murmur, Rub or Gallop
GI: Soft, Nontender, Nondistended and Normal Bowel Sounds; Negative Organomegaly
Rectal: Deferred by Provider
Musculoskeletal: No Clubbing, No Cyanosis and No Edema
Skin: Negative Rash
Neuro: Nonfocal/Grossly Intact
--- NOTE | 2025-06-08 14:23 | CM ---
CM following re: discharge planning.
Reviewed pt's chart, met with pt.
Pt is s/p removal of food impaction with noted grad D esophagitis, mild Schatzki's ring, continue supportive care.
PT and POT continue recommending SNF level of care. [facility] accepted the pt based on bed availability on the day of discharge.
Updated pt's clinical faxed to [facility] for a review.
D/C plan: [facility] based on bed availability on the day of discharge.
CM will follow with discharge plan updates as hospitalization progresses
[2025-06-08] MEDS: ATIVAN 1 MG PO (21:34)
[2025-06-09] VITALS (9 sets, daily range): BP systolic 107–158; BP diastolic 59–76; PULSE 90–120; O2SAT 90–96
[2025-06-09] MEDS: APRESOLINE 10 MG IV ×3 (05:20→23:25)
[2025-06-09] MEDS: LYRICA 50 MG PO ×2 (07:51→20:05)
[2025-06-09] MEDS: SPIRIVA RESPIMAT 2.5 MCG 2 PUFF INH (07:55)
[2025-06-09] MEDS: MIRALAX 17 GRAMS PO (07:57)
[2025-06-09] MEDS: COLACE 100 MG PO ×2 (07:58→20:05)
[2025-06-09] MEDS: VITAMIN B1 100 MG PO ×2 (07:58→20:05)
[2025-06-09] MEDS: FOLVITE 1 MG PO (07:58)
[2025-06-09] MEDS: SENOKOT 17.2 MG PO (07:58)
[2025-06-09] MEDS: XARELTO 2.5 MG PO ×2 (07:58→20:05)
[2025-06-09] MEDS: TYLENOL 650 MG PO ×2 (07:58→20:05)
[2025-06-09] MEDS: CRESTOR 20 MG PO (07:58)
[2025-06-09] MEDS: SENOKOT-S 1 TABLET PO (07:58)
[2025-06-09] MEDS: NSS (PRESERVATIVE FREE) 10 ML IV ×2 (07:58→20:05)
[2025-06-09] MEDS: NICODERM TRANSDERMAL 14 MG TRANSDERM (07:59)
[2025-06-09] MEDS: PROTONIX IV 40 MG IV ×2 (07:59→20:05)
--- NOTE | 2025-06-09 08:39 | PN.CDI ---
CDI
- -
CDI:
Physician Documentation Request
Admit Date: 06/01/25 17:17
Dear Doctor Timbo,
Progress notes state 'Suspected chronic hypoxic respiratory failure with asymptomatic hypoxia with pulse ox of 88-90% on room air at rest'
Per documented vital signs patient initially was on 3-6L, now 2-4L
Please clarify which of the following accurately represents the acuity of the suspected respiratory failure:
Acute on Chronic
Chronic only
____ Other
Use of terms such as suspected, likely, concern for, or probable (associated with a specific diagnosis that is being evaluated, monitored, or treated as if it exists) are acceptable and can be coded in the inpatient setting, when documented at the
time of discharge.
Thank you,
Lilia Carroll RN, BSN
CDI Specialist
tiger text
Please use your independent medical judgment in providing your response.
--- NOTE | 2025-06-09 12:06 | W.PN.GI.CBS2 ---
Today's Communication / Plan
-
-- Esophagram tomorrow morning
-- Discussed with primary team
Assessment / Plan
-
Pt is a 69yo with hx PSVT, PAD on Xarelto s/p right iliac stent, CAD, COPD, TIA GERD, HTN, hypercholesterolemia, anxiety/depression,ETOH/tobacco use, constipation, hyponatremia, who presents 06/01 with fall with hip fracture s/p repair now asked
to see if noted dysphagia. During admission Pt completed CXR on admission with concern for new large upper lobe mass. She completed CT chest 06/05 with RUL noted mass 5.5 cm concern for malignancy, with with 8 mm nodule, LLL consolidation and
bronchioles with mucous plugging, changes on emphysema, but also noted esophagus nearly dilated with mild wall thickening and concern for dysmotility vs distal esophageal stricture. t/c EGD and also noted thickening of proximal stomach with
severe coronary calcification. CT neck with noted extensive debris in esophagus. Pt completed VSE with incomplete study. In review with patient she denies difficulty with swallowing prior to admission. She is noted with difficulty with solid and
liquids and concern for aspiration with coughing up brownish mucous on 06/06. She denies hx EGD prior to admission but admits to several colonoscopies in past. 06/06 EGD with food impaction, grade D esophagitis, mild schatzki's ring.
06/06/25 EGD-- Dr. Bullock
- extensive Food in the esophagus. Removal was successful.
- LA Grade D erosive esophagitis with no bleeding.
- Mild Schatzki ring. no dilation
- Normal stomach.
- Normal examined duodenum
06/01/25- HCT No acute intracranial abnormality noted.
06/08 speech therapy - VSE completed with some laryngeal penetration with thins but no aspiration, would be ok for regular with thin liquid on esophageal sweep distended and slow to empty
will plan for IDDS 5 with chopped foods and monitor
-new onset dysphagia with food impaction on EGD with removal 06/06
-grade D erosive esophagitis and Schatzki's ring per EGD
-CT chest with dilated esophagus with mild wall thickening/proximal stomach thickening
-persistent dysarthric speech HCT neg 06/01 -- improving
-new right Upper lobe large lung mass
-s/p fall with hip fracture and repair
-anemia -macrocytic
-constipation
-uncontrolled HTN - improving
-elevated creat
-hypokalemia - corrected
other med problems:
-PSVT
- PAD on Xarelto s/p right iliac stent
- CAD
- COPD
-TIA
-GERD
- HTN
- hypercholesterolemia
-anxiety/depression
-ETOH/tobacco use
- hyponatremia
06/09/2025 -patient with persistent dysphagia issues despite modified diet, downgraded to pur�ed per primary team this morning
-- On twice daily PPI
-- Also on modified Xarelto post right proximal femoral neck fracture and peripheral arterial disease with right iliac stenting and right femoral endarterectomy in [address] Adams
-- Will proceed to esophagram in the morning to determine if she needs dilation -in which the Xarelto would need to be held
-- Aspiration precautions are very important
-- Reviewed pulmonary notes. They will follow-up with her outpatient for biopsy of the pulmonary mass
Subjective
Subjective
Date of Service: June 09, 2025
Patient is complaining about having to repeat swallow just to get the soft solids down. She was downgraded to pur�ed diet today
Objective
Data Reviewed
Laboratory Data:
Laboratory Results
06/07/25 07:30
06/07/25 07:30
Laboratory Results
PT 14.2 Sec (11.4-14.6) 06/01/25 19:22
INR 1.05 06/01/25 19:22
APTT 37.0 Sec (23.4-35.0) H 06/01/25 19:22
Phosphorus 3.7 mg/dl (2.5-4.5) 06/06/25 16:40
Magnesium 2.2 mg/dl (1.6-2.3) 06/07/25 07:30
Total Bilirubin 0.5 mg/dl (0.2-1.3) 06/01/25 16:01
AST 25 U/L (14-36) 06/01/25 16:01
ALT 20 U/L (0-35) 06/01/25 16:01
Alkaline Phosphatase 63 U/L (38-126) 06/01/25 16:01
Vital Signs and I&O:
Vital Signs
Temp Pulse Resp BP Pulse Ox
98.0 F 94 18 126/59 92
06/09/25 11:00 06/09/25 11:00 06/09/25 11:00 06/09/25 11:00 06/09/25 11:05
I&O
06/08/25 06/09/25 06/10/25
06:59 06:59 06:59
Intake Total 660 / 660 360 / 360
Balance 660 / 660 360 / 360
Physical Exam
Physical Exam
HEENT: Anicteric
Pulmonary: Rhonchi
GI: Soft
Neuro: Non Focal
[2025-06-09] MEDS: APRESOLINE IV (12:22)
--- NOTE | 2025-06-09 13:29 | W.PN.HOSP.TC ---
Today's Communication/Plan
-
Remains with dysphagia
Suspect post food impaction esophagitis persistent.
Pur�ed diet.
Esophagogram in a.m. as per GI.
Continue PT
Assessment / Plan
Assessment / Plan
Impression:
Right proximal femoral neck fracture secondary to mechanical trauma and osteoporosis
Aspiration syndrome secondary to esophageal food impaction.
Acute anemia
Conditions prior to admission:
Right upper lobe mass new since 2022.
Suspected chronic hypoxic respiratory failure with asymptomatic hypoxia with pulse ox of 88-90% on room air at rest
Tobacco use disorder.
Chronic hyponatremia.
COPD without exacerbation.
Essential hypertension
CAD/PAD.
Neuropathy.
GERD.
Anxiety/depression.
Alcohol use disorder without evidence of withdrawal
Mild protein calorie malnutrition with BMI of 19.
Plan
Mechanical fall with right proximal femoral neck fracture
- S/p right hip arthroplasty without immediate complications.
- Continue pain regimen PT OT eval.
- WBAT to RLE with walker. THPs x6-8 weeks.
- Modified Xarelto DVT ppx.
-Case management to look into disposition.
Acute anemia, multifactorial secondary to postoperative blood loss and dilution. Hemoglobin trending down 12.3�9.7. Monitor closely.
Asymptomatic hypoxia saturations 88 to 90% on room air at rest. Suspect chronic hypoxic respiratory insufficiency. History of COPD and ongoing tobacco use. Started on oxygen as needed to keep saturations more than 91% on room air. Chest x-ray
shows new large right upper lobe pulmonary mass.
#Right upper lobe mass-current smoker. Unlikely malignant. Need evaluation - Pulm plannig on OP Bronch &biopsy.
#Active smoker
#COPD�with reactive airways today
-Smoking three-quarter pack a day x 50+ years
-Cessation advised
-Continue budesonide
-Add duonebs and consider steroids if persistent wheeze
- Continue with oxygen therapy. Would need home O2 eval once on her feet.
Outpatient follow-up with pulmonology for further evaluation of the right upper lobe mass, once overall performance status improved/post rehab
Dysphagia and aspiration secondary to esophageal impaction
Noted on presentation imaging as well as VSE
GI consultation
Status post post EGD on 06/06 with findings of a large amount of food debris in the entire esophagus removed. Grade D esophagitis throughout the esophagus due to food impaction/erosion. Mild Schatzki ring.
Reported ongoing aspiration after procedure
Speech evaluation ongoing with repeat VSE c/w improved oropharyngeal phase
With persistent dysphagia, suspect secondary to esophagitis related to food impaction plan is to perform esophagogram on 06/10
Downgrade diet to pur�ed
Resume preadmission medication regimen
Chronic hyponatremia
Urine Na suggest avid uptake suggestive possible of volume depletion .Na normal .DC FR
CKD stage III with baseline creatinine 1.4�1.5
Alcohol use disorder without evidence of withdrawal
Patient drinks 16 ounces of wine daily last drink was yesterday 05/31/2025 evening she drinks 5 times a week. No prior alcohol withdrawal.
- MSAs screen per protocol
-Cessation advised
Cognitive impairment
-reported by sister for the past year
#Reported staring episodes x 6 months
Witnessed staring episode in hospital by myself lasting approximately 1 minute patient unaware
-Cognitive impairment assessment: Mini cog 1 out of 5 correct
-Recommend outpatient MRI brain and neuropsychological testing. Definitely would need MRI imaging of the brain with the newfound right upper lobe mass
-CT head No acute intracranial abnormality compatible with chronic small vessel ischemic disease mild global peripheral volume loss
Right-sided carotid bruit history PAD/CAD
- Ultrasound noted with coronary artery disease close of 50 to 69% on the left and close to 50% on the right.
- Follow-up with vascular as before.
Recent acute Constipation 05/19/2025-- large size stool bolus in rectal vault, has since passed
#Heme positive stool was due to to severe constipation, possibly hemorrhoids
PAD s/p Right Iliac Stent and Right Femoral Endarterectomy
#HLD
-Continue statin, aspirin
Resuming Xarelto.
Essential Hypertension
Blood pressure not under goal
-Continue candesartan, beta-jackeline
- Add as needed hydralazine
GERD
Continue PPI twice daily
Anxiety/Depression/Insomnia
-Continue lorazepam as needed
Tobacco Use Disorder
-Encourage smoking cessation
-Offer Nicorette gum as needed
DVT prophylaxis
SCDs
Full code
Discussed with RN
Anticipated Discharge: 24 - 48 hours
Subjective/Interval History
-
Date of Service: June 09, 2025
Objective Data
-
Vital Signs:
Vital Signs
Temp Pulse Resp BP Pulse Ox
98.0 F 85 18 116/72 92
06/09/25 11:00 06/09/25 12:22 06/09/25 11:00 06/09/25 12:22 06/09/25 11:05
I&O
06/08/25 06/09/25 06/10/25
06:59 06:59 06:59
Intake Total 660 / 660 360 / 360
Balance 660 / 660 360 / 360
Physical Exam
-
General: Well Developed and No Apparent Distress
HEENT: Normocephalic, Atraumatic and Moist Mucous Membranes
Respiratory: Clear to Auscultation
Cardiac: Regular Rhythm and S1/S2; Negative Murmur, Rub or Gallop
GI: Soft, Nontender, Nondistended and Normal Bowel Sounds; Negative Organomegaly
Rectal: Deferred by Provider
Musculoskeletal: No Clubbing, No Cyanosis and No Edema
Skin: Negative Rash
Neuro: Nonfocal/Grossly Intact
[2025-06-09] MEDS: CARAFATE SUSPENSION 1 GM PO ×2 (16:22→22:10)
[2025-06-09] MEDS: SENOKOT PO (20:10)
[2025-06-09] MEDS: SENOKOT-S PO (20:10)
[2025-06-09] MEDS: ATIVAN 1 MG PO (22:10)
[2025-06-10] VITALS (7 sets, daily range): BP systolic 123–158; BP diastolic 53–72; PULSE 94; O2SAT 94
[2025-06-10] MEDS: APRESOLINE 10 MG IV ×3 (05:13→17:40)
--- NOTE | 2025-06-10 06:12 | W.PN.GI.CBS2 ---
Today's Communication / Plan
-
Please see assessment and plan for details.
Assessment / Plan
-
1. Dysphagia: With food impaction, EGD with Schatzki's ring and severe esophagitis, though no obvious malignancy. At this point we will await esophagram. If no other significant findings will likely advance diet with modifications, continue PPI.
She will follow-up with pulmonary for lung mass noted on imaging.
Subjective
Subjective
Date of Service: June 10, 2025
Patient feeling okay, no events overnight, had been tolerating liquids. No fevers or chills.
Objective
Data Reviewed
Laboratory Data:
Laboratory Results
06/07/25 07:30
06/07/25 07:30
Laboratory Results
PT 14.2 Sec (11.4-14.6) 06/01/25 19:22
INR 1.05 06/01/25 19:22
APTT 37.0 Sec (23.4-35.0) H 06/01/25 19:22
Phosphorus 3.7 mg/dl (2.5-4.5) 06/06/25 16:40
Magnesium 2.2 mg/dl (1.6-2.3) 06/07/25 07:30
Total Bilirubin 0.5 mg/dl (0.2-1.3) 06/01/25 16:01
AST 25 U/L (14-36) 06/01/25 16:01
ALT 20 U/L (0-35) 06/01/25 16:01
Alkaline Phosphatase 63 U/L (38-126) 06/01/25 16:01
Vital Signs and I&O:
Vital Signs
Temp Pulse Resp BP Pulse Ox
98.6 F 93 17 163/80 96
06/10/25 03:07 06/10/25 05:13 06/10/25 03:07 06/10/25 05:13 06/10/25 03:07
I&O
06/08/25 06/09/25 06/10/25
06:59 06:59 06:59
Intake Total 660 / 660 360 / 360 720 / 720
Balance 660 / 660 360 / 360 720 / 720
Physical Exam
Physical Exam
General: NAD
Abdomen: normal bowel sounds, soft, no tenderness, no masses or bruits, no ascites
[2025-06-10] MEDS: CARAFATE SUSPENSION PO ×3 (06:54→23:04)
[2025-06-10] MEDS: COLACE PO ×2 (07:00→19:59)
[2025-06-10] MEDS: FOLVITE PO (07:00)
[2025-06-10] MEDS: CRESTOR PO (07:00)
[2025-06-10] MEDS: MIRALAX PO (07:00)
[2025-06-10] MEDS: SENOKOT PO (07:00)
[2025-06-10] MEDS: SENOKOT-S PO (07:01)
[2025-06-10] MEDS: VITAMIN B1 PO (07:01)
[2025-06-10] MEDS: TYLENOL PO (07:01)
[2025-06-10] MEDS: NICODERM TRANSDERMAL 14 MG TRANSDERM (07:33)
[2025-06-10] MEDS: NSS (PRESERVATIVE FREE) 10 ML IV ×2 (07:33→19:59)
[2025-06-10] MEDS: PROTONIX IV 40 MG IV ×2 (07:33→19:58)
[2025-06-10] MEDS: FLUSH (NSS) 1 FLUSH IV (07:33)
[2025-06-10] MEDS: SPIRIVA RESPIMAT 2.5 MCG 2 PUFF INH (07:45)
--- NOTE | 2025-06-10 12:38 | W.PN.HOSP.TC ---
Today's Communication/Plan
-
VTE workup starting with LE dopplers (tachycardia, hypoxia)
Esophagram; follow GI recs
Assessment / Plan
Assessment / Plan
Impression:
Right proximal femoral neck fracture secondary to mechanical trauma and osteoporosis
Aspiration syndrome secondary to esophageal food impaction.
Acute anemia
Conditions prior to admission:
Right upper lobe mass new since 2022.
Suspected chronic hypoxic respiratory failure with asymptomatic hypoxia with pulse ox of 88-90% on room air at rest
Tobacco use disorder.
Chronic hyponatremia.
COPD without exacerbation.
Essential hypertension
CAD/PAD.
Neuropathy.
GERD.
Anxiety/depression.
Alcohol use disorder without evidence of withdrawal
Mild protein calorie malnutrition with BMI of 19.
Plan
Mechanical fall with right proximal femoral neck fracture
- S/p right hip arthroplasty without immediate complications.
- Continue pain regimen PT OT eval.
- WBAT to RLE with walker. THPs x6-8 weeks.
- Modified Xarelto DVT ppx.
- Case management to look into disposition.
Acute anemia, multifactorial secondary to postoperative blood loss and dilution. Hemoglobin trending down 12.3�9.0. Monitor closely.
Asymptomatic hypoxia saturations 88 to 90% on room air at rest. Suspect chronic hypoxic respiratory insufficiency. History of COPD and ongoing tobacco use. Started on oxygen as needed to keep saturations more than 91% on room air. Chest x-ray
shows new large right upper lobe pulmonary mass.
- CT: Right upper lobe mass measuring up to 5.5 cm in diameter as above, highly suspicious for pulmonary malignancy.
- with history of active smoking and COPD, will need evaluation. Pulm planning OP Bronch and biopsy in June
- smoking cessation advised
- continue nebs per pulm
- continue O2
Dysphagia and aspiration secondary to esophageal impaction
Noted on presentation imaging as well as VSE
GI consultation
Status post post EGD on 06/06 with findings of a large amount of food debris in the entire esophagus removed. Grade D esophagitis throughout the esophagus due to food impaction/erosion. Mild Schatzki ring.
Reported ongoing aspiration after procedure
Speech evaluation ongoing with repeat VSE c/w improved oropharyngeal phase
With persistent dysphagia, suspect secondary to esophagitis related to food impaction plan is to perform esophagogram; currently pending.
Downgrade diet to pur�ed
Resume preadmission medication regimen
Chronic hyponatremia
Urine Na suggest avid uptake suggestive possible of volume depletion .Na normal .DC FR
CKD stage III with baseline creatinine 1.4�1.5
Alcohol use disorder without evidence of withdrawal
Patient drinks 16 ounces of wine daily last drink was yesterday 05/31/2025 evening she drinks 5 times a week. No prior alcohol withdrawal.
- MSAs screen per protocol
- Cessation advised
Cognitive impairment
-reported by sister for the past year
#Reported staring episodes x 6 months
Witnessed staring episode in hospital by myself lasting approximately 1 minute patient unaware
-Cognitive impairment assessment: Mini cog 1 out of 5 correct
-Recommend outpatient MRI brain and neuropsychological testing. Definitely would need MRI imaging of the brain with the newfound right upper lobe mass
-CT head No acute intracranial abnormality compatible with chronic small vessel ischemic disease mild global peripheral volume loss
Right-sided carotid bruit history PAD/CAD
- Ultrasound noted with coronary artery disease close of 50 to 69% on the left and close to 50% on the right.
- Follow-up with vascular as before.
Recent acute Constipation 05/19/2025-- large size stool bolus in rectal vault, has since passed
- Heme positive stool was due to to severe constipation, possibly hemorrhoids
PAD s/p Right Iliac Stent and Right Femoral Endarterectomy
HLD
- Continue statin, aspirin/Xarelto.
Essential Hypertension
Blood pressure not under goal
- continue candesartan, beta-jackeline
- Add as needed hydralazine
GERD
- continue PPI twice daily
Anxiety/Depression/Insomnia
- continue lorazepam as needed
Tobacco Use Disorder
- Encourage smoking cessation
- Offer Nicorette gum as needed
DVT prophylaxis: SCDs
Code: Full
Anticipated Discharge: > 48 hours
Subjective/Interval History
-
Date of Service: June 10, 2025
resting comfortably, no complaints at present.
PT walked with patient and noted to have tachycardia to 110s with exertion of 25 feet
Objective Data
-
Vital Signs:
Vital Signs
Temp Pulse Resp BP Pulse Ox
98.7 F 111 16 149/71 93
06/10/25 07:20 06/10/25 07:49 06/10/25 07:49 06/10/25 07:20 06/10/25 11:15
I&O
06/09/25 06/10/25 06/11/25
06:59 06:59 06:59
Intake Total 360 / 360 720 / 720
Balance 360 / 360 720 / 720
Physical Exam
-
General: Other (frail)
HEENT: Normocephalic and Atraumatic
Respiratory: Decreased Breath Sounds; Negative Wheezes
Cardiac: Regular Rhythm and S1/S2
Neuro: AO x 3
Psych: Calm
Data Reviewed
-
Total Time Spent with Patient (in minutes): 45
Labs: Labs Reviewed by me
[2025-06-10] MEDS: LYRICA PO (13:28)
[2025-06-10] MEDS: XARELTO PO (13:28)
[2025-06-10] MEDS: CARAFATE SUSPENSION 1 GM PO (16:09)
[2025-06-10] MEDS: ROXICODONE 5 MG PO (19:50)
[2025-06-10] MEDS: SENOKOT-S 1 TABLET PO (19:58)
[2025-06-10] MEDS: XARELTO 2.5 MG PO (19:58)
[2025-06-10] MEDS: SENOKOT 17.2 MG PO (19:58)
[2025-06-10] MEDS: TYLENOL 650 MG PO (19:58)
[2025-06-10] MEDS: VITAMIN B1 100 MG PO (19:58)
[2025-06-10] MEDS: LYRICA 50 MG PO (19:59)
[2025-06-10] MEDS: ATIVAN 1 MG PO (23:02)
[2025-06-11] VITALS (8 sets, daily range): BP systolic 130–196; BP diastolic 62–76; PULSE 110; O2SAT 96
[2025-06-11] MEDS: APRESOLINE 10 MG IV ×5 (00:19→23:55)
[2025-06-11 06:22] LABS: Hematocrit 27.0 % (37.0-47.0); Hemoglobin 9.3 g/dL (12.0-16.0); Mean Corp Hgb Conc. 34.4 g/dL (33.0-37.0); Mean Corpuscular Volume 98.5 fL (81.0-99.0); Platelet Count 306 10^3/uL (130-400); Red Cell Dist. Width 12.3 % (11.5-14.5)
[2025-06-11 06:46] LABS: Blood Urea Nitrogen 37 mg/dl (7-17); Calcium 8.8 mg/dl (8.4-10.2); Carbon Dioxide 23 mmol/L (22-30); Chloride 106 mmol/L (98-107); Estimated Creatinine Clearance 22 ml/min; Glucose 94 mg/dl (70-99); Potassium 4.3 mmol/L (3.5-5.1); Sodium 132 mmol/L (135-145); eGFR 37.03
[2025-06-11] MEDS: XARELTO 2.5 MG PO ×2 (07:48→20:55)
[2025-06-11] MEDS: FOLVITE 1 MG PO (07:48)
[2025-06-11] MEDS: TYLENOL 650 MG PO ×2 (07:48→20:55)
[2025-06-11] MEDS: SENOKOT 17.2 MG PO (07:48)
[2025-06-11] MEDS: CARAFATE SUSPENSION 1 GM PO ×4 (07:48→20:56)
[2025-06-11] MEDS: LYRICA 50 MG PO ×2 (07:48→20:55)
[2025-06-11] MEDS: SENOKOT-S 1 TABLET PO ×2 (07:48→20:56)
[2025-06-11] MEDS: VITAMIN B1 100 MG PO ×2 (07:48→20:55)
[2025-06-11] MEDS: MIRALAX 17 GRAMS PO (07:49)
[2025-06-11] MEDS: COLACE PO ×2 (07:49→20:10)
[2025-06-11] MEDS: NSS (PRESERVATIVE FREE) 10 ML IV ×2 (07:50→20:56)
[2025-06-11] MEDS: NICODERM TRANSDERMAL 14 MG TRANSDERM (07:50)
[2025-06-11] MEDS: CRESTOR 20 MG PO (07:50)
[2025-06-11] MEDS: PROTONIX IV 40 MG IV ×2 (07:50→21:22)
[2025-06-11] MEDS: APRESOLINE 5 MG IV ×2 (07:54→22:17)
--- NOTE | 2025-06-11 08:00 | W.PN.GI.CBS2 ---
Today's Communication / Plan
-
Please see assessment and plan for details.
Assessment / Plan
-
1. Dysphagia: With food impaction, EGD with Schatzki's ring and severe esophagitis, though no obvious malignancy. Barium esophagram suggested possible achalasia though was not definitive. She had no symptoms prior to her hospitalization and I
think achalasia is much less likely. She likely has some decreased motility now after severe food impaction and esophagitis. At this point we will advance to regular diet. We discussed modifications including small portions, liquids with each
bolus, upright as possible. CT scan did show a large mass which she will follow-up with pulmonary for, though not in an area that would cause compression and secondary achalasia. Will follow-up in the office in 1 month, and if still having
significant issues could consider manometry.
We will sign off for now, please call back with any further questions.
Subjective
Subjective
Date of Service: June 11, 2025
Patient doing okay, complaining of some leg and foot pain. She tolerated Eliquis without any difficulty. Barium esophagram showed some dysmotility and possibility of achalasia that was not definitive.
Objective
Data Reviewed
Laboratory Data:
Laboratory Results
06/11/25 05:55
06/11/25 05:55
Laboratory Results
PT 14.2 Sec (11.4-14.6) 06/01/25 19:22
INR 1.05 06/01/25 19:22
APTT 37.0 Sec (23.4-35.0) H 06/01/25 19:22
Phosphorus 3.7 mg/dl (2.5-4.5) 06/06/25 16:40
Magnesium 2.2 mg/dl (1.6-2.3) 06/07/25 07:30
Total Bilirubin 0.5 mg/dl (0.2-1.3) 06/01/25 16:01
AST 25 U/L (14-36) 06/01/25 16:01
ALT 20 U/L (0-35) 06/01/25 16:01
Alkaline Phosphatase 63 U/L (38-126) 06/01/25 16:01
Vital Signs and I&O:
Vital Signs
Temp Pulse Resp BP Pulse Ox
98.4 F 100 20 171/71 93
06/11/25 02:58 06/11/25 07:54 06/11/25 02:58 06/11/25 07:54 06/11/25 04:46
I&O
06/10/25 06/11/25 06/12/25
06:59 06:59 06:59
Intake Total 720 / 720 1196 / 1196
Balance 720 / 720 1196 / 1196
Physical Exam
Physical Exam
General: NAD
Abdomen: normal bowel sounds, soft, no tenderness, no masses or bruits, no ascites
[2025-06-11] MEDS: SPIRIVA RESPIMAT 2.5 MCG 2 PUFF INH (08:19)
[2025-06-11] MEDS: ATACAND 32 MG PO (10:15)
--- NOTE | 2025-06-11 12:06 | W.PN.HOSP.TC ---
Today's Communication/Plan
-
Ct-PE study
continue pain control
regular diet
dispo planning
Assessment / Plan
Assessment / Plan
Impression:
Right proximal femoral neck fracture secondary to mechanical trauma and osteoporosis
Aspiration syndrome secondary to esophageal food impaction.
Acute anemia
Conditions prior to admission:
Right upper lobe mass new since 2022.
Suspected chronic hypoxic respiratory failure with asymptomatic hypoxia with pulse ox of 88-90% on room air at rest
Tobacco use disorder.
Chronic hyponatremia.
COPD without exacerbation.
Essential hypertension
CAD/PAD.
Neuropathy.
GERD.
Anxiety/depression.
Alcohol use disorder without evidence of withdrawal
Mild protein calorie malnutrition with BMI of 19.
Plan
Mechanical fall with right proximal femoral neck fracture
- S/p right hip arthroplasty without immediate complications.
- Continue pain regimen PT OT eval.
- WBAT to RLE with walker. THPs x6-8 weeks.
- Modified Xarelto DVT ppx.
- Case management to look into disposition.
Acute anemia, multifactorial secondary to postoperative blood loss and dilution. Hemoglobin trending down 12.3�9.0. Monitor closely.
Asymptomatic hypoxia saturations 88 to 90% on room air at rest. Suspect chronic hypoxic respiratory insufficiency. History of COPD and ongoing tobacco use. Started on oxygen as needed to keep saturations more than 91% on room air. Chest x-ray
shows new large right upper lobe pulmonary mass.
- CT: Right upper lobe mass measuring up to 5.5 cm in diameter as above, highly suspicious for pulmonary malignancy.
- with history of active smoking and COPD, will need evaluation. Pulm planning OP Bronch and biopsy in June
- smoking cessation advised
- continue nebs per pulm
- continue O2
- 06/11: CT-PE study to eval for PE
Dysphagia and aspiration secondary to esophageal impaction
Noted on presentation imaging as well as VSE
GI following
Status post post EGD on 06/06 with findings of a large amount of food debris in the entire esophagus removed. Grade D esophagitis throughout the esophagus due to food impaction/erosion. Mild Schatzki ring.
Reported ongoing aspiration after procedure
Speech evaluation ongoing with repeat VSE c/w improved oropharyngeal phase
With persistent dysphagia, suspect secondary to esophagitis related to food impaction plan is to perform esophagogram which showed possible but no definitive achalasia
diet: regular per GI (small portions, liquids with each bolus, upright as possible)
Resume preadmission medication regimen
Chronic hyponatremia
Urine Na suggest avid uptake suggestive possible of volume depletion .Na normal .DC FR
CKD stage III with baseline creatinine 1.4�1.5
Alcohol use disorder without evidence of withdrawal
Patient drinks 16 ounces of wine daily last drink was yesterday 05/31/2025 evening she drinks 5 times a week. No prior alcohol withdrawal.
- MSAS screen per protocol
- Cessation advised
Cognitive impairment
-reported by sister for the past year
#Reported staring episodes x 6 months
Witnessed staring episode in hospital by myself lasting approximately 1 minute patient unaware
-Cognitive impairment assessment: Mini cog 1 out of 5 correct
-Recommend outpatient MRI brain and neuropsychological testing. Definitely would need MRI imaging of the brain with the newfound right upper lobe mass
-CT head No acute intracranial abnormality compatible with chronic small vessel ischemic disease mild global peripheral volume loss
Right-sided carotid bruit history PAD/CAD
- Ultrasound noted with coronary artery disease close of 50 to 69% on the left and close to 50% on the right.
- Follow-up with vascular as before.
Recent acute Constipation 05/19/2025-- large size stool bolus in rectal vault, has since passed
- Heme positive stool was due to to severe constipation, possibly hemorrhoids
PAD s/p Right Iliac Stent and Right Femoral Endarterectomy
HLD
- Continue statin, aspirin/Xarelto.
Essential Hypertension
Blood pressure not under goal
- continue candesartan, beta-jackeline
- Add as needed hydralazine
GERD
- continue PPI twice daily
Anxiety/Depression/Insomnia
- continue lorazepam as needed
Tobacco Use Disorder
- Encourage smoking cessation
- Offer Nicorette gum as needed
DVT prophylaxis: SCDs
Code: Full
Anticipated Discharge: > 48 hours
Subjective/Interval History
-
Date of Service: June 11, 2025
reports ongoing SOB, remains on 2L NC
reports generalized body aches
Objective Data
-
Labs:
Laboratory Results
06/11/25
05:55
WBC 15.4 H
Hgb 9.3 L
Hct 27.0 L
Plt Count 306 D
Sodium 132 L
Potassium 4.3
Chloride 106
Carbon Dioxide 23
BUN 37 H
Creatinine 1.5 H
Glucose 94
Calcium 8.8
Vital Signs:
Vital Signs
Temp Pulse Resp BP Pulse Ox
99.6 F 98 18 139/80 93
06/11/25 07:30 06/11/25 10:15 06/11/25 08:21 06/11/25 10:15 06/11/25 08:45
I&O
06/10/25 06/11/25 06/12/25
06:59 06:59 06:59
Intake Total 720 / 720 1196 / 1196
Balance 720 / 720 1196 / 1196
Physical Exam
-
General: No Apparent Distress and Other (frail)
HEENT: Normocephalic
Respiratory: Negative Wheezes
Cardiac: Regular Rhythm and S1/S2
GI: Soft
Neuro: AO x 3
Psych: Calm
Data Reviewed
-
Total Time Spent with Patient (in minutes): 42
Labs: Labs Reviewed by me
[2025-06-11] MEDS: ROXICODONE 5 MG PO ×2 (12:33→20:56)
[2025-06-11] MEDS: BENADRYL 50 MG IV (12:34)
[2025-06-11] MEDS: SOLU-CORTEF 200 MG IV (12:35)
[2025-06-11] MEDS: SENOKOT-S PO (20:10)
[2025-06-11] MEDS: SENOKOT PO (20:11)
[2025-06-11] MEDS: ATIVAN 1 MG PO (20:56)
[2025-06-11] MEDS: PROTONIX IV IV (20:56)
[2025-06-11] MEDS: APRESOLINE IV (20:57)
[2025-06-12] VITALS (9 sets, daily range): BP systolic 130–174; BP diastolic 49–88; PULSE 79; O2SAT 97
[2025-06-12] MEDS: APRESOLINE 10 MG IV ×2 (06:22→13:20)
[2025-06-12] MEDS: SPIRIVA RESPIMAT 2.5 MCG 2 PUFF INH (07:51)
[2025-06-12] MEDS: CRESTOR 20 MG PO (08:09)
[2025-06-12] MEDS: XARELTO 2.5 MG PO ×2 (08:09→19:27)
[2025-06-12] MEDS: CARAFATE SUSPENSION 1 GM PO ×4 (08:09→21:38)
[2025-06-12] MEDS: VITAMIN B1 100 MG PO ×2 (08:10→19:27)
[2025-06-12] MEDS: FOLVITE 1 MG PO (08:10)
[2025-06-12] MEDS: TYLENOL 650 MG PO ×2 (08:10→19:27)
[2025-06-12] MEDS: COLACE PO ×2 (08:10→19:13)
[2025-06-12] MEDS: NICODERM TRANSDERMAL 14 MG TRANSDERM (08:11)
[2025-06-12] MEDS: NSS (PRESERVATIVE FREE) 10 ML IV (08:11)
[2025-06-12] MEDS: PROTONIX IV 40 MG IV (08:11)
[2025-06-12] MEDS: SENOKOT PO ×2 (08:11→19:14)
[2025-06-12] MEDS: MIRALAX PO (08:11)
[2025-06-12] MEDS: ATACAND 32 MG PO (08:12)
[2025-06-12] MEDS: SENOKOT-S PO ×2 (08:12→19:14)
[2025-06-12] MEDS: LYRICA 50 MG PO ×2 (08:20→19:27)
[2025-06-12] MEDS: BYSTOLIC 5 MG PO ×2 (10:28→13:29)
[2025-06-12 10:33] LABS: Hematocrit 26.8 % (37.0-47.0); Hemoglobin 9.2 g/dL (12.0-16.0); Mean Corp Hgb Conc. 34.3 g/dL (33.0-37.0); Mean Corpuscular Volume 99.3 fL (81.0-99.0); Platelet Count 348 10^3/uL (130-400); Red Cell Dist. Width 12.7 % (11.5-14.5)
[2025-06-12 10:46] LABS: Blood Urea Nitrogen 30 mg/dl (7-17); Calcium 8.9 mg/dl (8.4-10.2); Carbon Dioxide 22 mmol/L (22-30); Chloride 106 mmol/L (98-107); Estimated Creatinine Clearance 24 ml/min; Glucose 180 mg/dl (70-99); Potassium 3.9 mmol/L (3.5-5.1); Sodium 134 mmol/L (135-145); eGFR 40.22
[2025-06-12] MEDS: CARAFATE SUSPENSION PO (12:34)
--- NOTE | 2025-06-12 13:20 | W.PN.HOSP.TC ---
Today's Communication/Plan
-
await disposition
add oral hydralazine
Assessment / Plan
Assessment / Plan
Impression:
Right proximal femoral neck fracture secondary to mechanical trauma and osteoporosis
Aspiration syndrome secondary to esophageal food impaction.
Acute anemia
Conditions prior to admission:
Right upper lobe mass new since 2022.
Suspected chronic hypoxic respiratory failure with asymptomatic hypoxia with pulse ox of 88-90% on room air at rest
Tobacco use disorder.
Chronic hyponatremia.
COPD without exacerbation.
Essential hypertension
CAD/PAD.
Neuropathy.
GERD.
Anxiety/depression.
Alcohol use disorder without evidence of withdrawal
Mild protein calorie malnutrition with BMI of 19.
Plan
Mechanical fall with right proximal femoral neck fracture
- S/p right hip arthroplasty without immediate complications.
- Continue pain regimen PT OT eval.
- WBAT to RLE with walker. THPs x6-8 weeks.
- Modified Xarelto DVT ppx.
- Case management to look into disposition.
Acute anemia, multifactorial secondary to postoperative blood loss and dilution. Hemoglobin trending down 12.3�9.0. Monitor closely.
Asymptomatic hypoxia saturations 88 to 90% on room air at rest. Suspect chronic hypoxic respiratory insufficiency. History of COPD and ongoing tobacco use. Started on oxygen as needed to keep saturations more than 91% on room air. Chest x-ray
shows new large right upper lobe pulmonary mass.
- CT: Right upper lobe mass measuring up to 5.5 cm in diameter as above, highly suspicious for pulmonary malignancy.
- with history of active smoking and COPD, will need evaluation. Pulm planning OP Bronch and biopsy in June
- smoking cessation advised
- continue nebs per pulm
- continue O2
- 06/11: CT-PE study: no PE
Dysphagia and aspiration secondary to esophageal impaction
Noted on presentation imaging as well as VSE
GI following
Status post post EGD on 06/06 with findings of a large amount of food debris in the entire esophagus removed. Grade D esophagitis throughout the esophagus due to food impaction/erosion. Mild Schatzki ring.
Reported ongoing aspiration after procedure
Speech evaluation ongoing with repeat VSE c/w improved oropharyngeal phase
With persistent dysphagia, suspect secondary to esophagitis related to food impaction plan is to perform esophagogram which showed possible but no definitive achalasia
diet: regular per GI (small portions, liquids with each bolus, upright as possible)
Resume preadmission medication regimen
Chronic hyponatremia
Urine Na suggest avid uptake suggestive possible of volume depletion .Na normal .DC FR
CKD stage III with baseline creatinine 1.4�1.5
Alcohol use disorder without evidence of withdrawal
Patient drinks 16 ounces of wine daily last drink was yesterday 05/31/2025 evening she drinks 5 times a week. No prior alcohol withdrawal.
- MSAS screen per protocol
- Cessation advised
Cognitive impairment
-reported by sister for the past year
#Reported staring episodes x 6 months
Witnessed staring episode in hospital by myself lasting approximately 1 minute patient unaware
-Cognitive impairment assessment: Mini cog 1 out of 5 correct
-Recommend outpatient MRI brain and neuropsychological testing. Definitely would need MRI imaging of the brain with the newfound right upper lobe mass
-CT head No acute intracranial abnormality compatible with chronic small vessel ischemic disease mild global peripheral volume loss
Right-sided carotid bruit history PAD/CAD
- Ultrasound noted with coronary artery disease close of 50 to 69% on the left and close to 50% on the right.
- Follow-up with vascular as before.
Recent acute Constipation 05/19/2025-- large size stool bolus in rectal vault, has since passed
- Heme positive stool was due to to severe constipation, possibly hemorrhoids
PAD s/p Right Iliac Stent and Right Femoral Endarterectomy
HLD
- Continue statin, aspirin/Xarelto.
- repeat arterial US consistent with op 05/17/25. d/w Dr. Adams - no intervention needed. OP f/u
Essential Hypertension
Blood pressure not under goal
- continue candesartan, beta-jackeline - titrated as possible for goal normotension
- add oral hydralazine
- as needed hydralazine
GERD
- continue PPI twice daily
Anxiety/Depression/Insomnia
- continue lorazepam as needed
Tobacco Use Disorder
- Encourage smoking cessation
- Offer Nicorette gum as needed
DVT prophylaxis: SCDs
Code: Full
Anticipated Discharge: > 48 hours
Subjective/Interval History
-
Date of Service: June 12, 2025
pain controlled
remains on 2L NC
denies any new complaints
Objective Data
-
Labs:
Laboratory Results
06/12/25
10:25
WBC 16.8 H
Hgb 9.2 L
Hct 26.8 L
Plt Count 348
Sodium 134 L
Potassium 3.9
Chloride 106
Carbon Dioxide 22
BUN 30 H
Creatinine 1.4 H
Glucose 180 H
Calcium 8.9
Vital Signs:
Vital Signs
Temp Pulse Resp BP Pulse Ox
97.7 F 80 16 172/67 97
06/12/25 11:05 06/12/25 13:00 06/12/25 11:05 06/12/25 13:00 06/12/25 13:00
I&O
06/11/25 06/12/25 06/13/25
06:59 06:59 06:59
Intake Total 1196 / 1196 600 / 600
Balance 1196 / 1196 600 / 600
Physical Exam
-
General: No Apparent Distress and Other (frail)
HEENT: Normocephalic and Atraumatic
Respiratory: Decreased Breath Sounds; Negative Wheezes
Cardiac: Regular Rhythm and S1/S2
GI: Soft and Nontender
Neuro: AO x 3
Psych: Calm
Data Reviewed
-
Total Time Spent with Patient (in minutes): 41
Labs: Labs Reviewed by me
[2025-06-12] MEDS: PROTONIX 40 MG PO (19:27)
[2025-06-12] MEDS: APRESOLINE 25 MG PO (19:27)
[2025-06-12] MEDS: ATIVAN 1 MG PO (21:38)
[2025-06-12] MEDS: ROXICODONE 5 MG PO (22:49)
[2025-06-13] VITALS (7 sets, daily range): BP systolic 130–178; BP diastolic 52–68; PULSE 96; O2SAT 96
[2025-06-13 04:59] LABS: Hematocrit 23.4 % (37.0-47.0); Hemoglobin 8.0 g/dL (12.0-16.0); Mean Corp Hgb Conc. 34.2 g/dL (33.0-37.0); Mean Corpuscular Volume 100.4 fL (81.0-99.0); Platelet Count 312 10^3/uL (130-400); Red Cell Dist. Width 12.5 % (11.5-14.5)
[2025-06-13 05:22] LABS: Blood Urea Nitrogen 31 mg/dl (7-17); Calcium 8.3 mg/dl (8.4-10.2); Carbon Dioxide 24 mmol/L (22-30); Chloride 108 mmol/L (98-107); Estimated Creatinine Clearance 21 ml/min; Glucose 87 mg/dl (70-99); Potassium 4.6 mmol/L (3.5-5.1); Sodium 133 mmol/L (135-145); eGFR 34.27
[2025-06-13] MEDS: SPIRIVA RESPIMAT 2.5 MCG 2 PUFF INH (07:44)
[2025-06-13] MEDS: ROXICODONE 5 MG PO ×2 (08:29→14:49)
[2025-06-13] MEDS: CARAFATE SUSPENSION 1 GM PO ×4 (08:29→21:03)
[2025-06-13] MEDS: ATACAND 32 MG PO (08:30)
[2025-06-13] MEDS: XARELTO 2.5 MG PO ×2 (08:30→19:48)
[2025-06-13] MEDS: FOLVITE 1 MG PO (08:31)
[2025-06-13] MEDS: COLACE PO ×2 (08:31→19:00)
[2025-06-13] MEDS: CRESTOR 20 MG PO (08:31)
[2025-06-13] MEDS: APRESOLINE 25 MG PO ×2 (08:31→19:48)
[2025-06-13] MEDS: VITAMIN B1 100 MG PO ×2 (08:31→19:48)
[2025-06-13] MEDS: LYRICA 50 MG PO ×2 (08:31→19:48)
[2025-06-13] MEDS: TYLENOL 650 MG PO ×3 (08:31→19:48)
[2025-06-13] MEDS: PROTONIX 40 MG PO ×2 (08:31→19:48)
[2025-06-13] MEDS: BYSTOLIC 10 MG PO (08:31)
[2025-06-13] MEDS: SENOKOT PO ×2 (08:32→19:00)
[2025-06-13] MEDS: MIRALAX PO (08:32)
[2025-06-13] MEDS: NICODERM TRANSDERMAL 14 MG TRANSDERM (08:32)
[2025-06-13] MEDS: SENOKOT-S PO ×2 (08:32→19:00)
--- NOTE | 2025-06-13 09:16 | W.PN.HOSP.TC ---
Today's Communication/Plan
-
L spine Xray
lidocaine patches
Dispo planning
Assessment / Plan
Assessment / Plan
Impression:
Right proximal femoral neck fracture secondary to mechanical trauma and osteoporosis
Aspiration syndrome secondary to esophageal food impaction.
Acute anemia
Conditions prior to admission:
Right upper lobe mass new since 2022.
Suspected chronic hypoxic respiratory failure with asymptomatic hypoxia with pulse ox of 88-90% on room air at rest
Tobacco use disorder.
Chronic hyponatremia.
COPD without exacerbation.
Essential hypertension
CAD/PAD.
Neuropathy.
GERD.
Anxiety/depression.
Alcohol use disorder without evidence of withdrawal
Mild protein calorie malnutrition with BMI of 19.
Plan
Mechanical fall with right proximal femoral neck fracture
- S/p right hip arthroplasty without immediate complications.
- Continue pain regimen PT OT eval.
- WBAT to RLE with walker. THPs x6-8 weeks.
- Modified Xarelto DVT ppx.
- Case management to look into disposition.
Acute anemia, multifactorial secondary to postoperative blood loss and dilution. Hemoglobin trending down 12.3�9.0. Monitor closely.
Asymptomatic hypoxia saturations 88 to 90% on room air at rest. Suspect chronic hypoxic respiratory insufficiency. History of COPD and ongoing tobacco use. Started on oxygen as needed to keep saturations more than 91% on room air. Chest x-ray
shows new large right upper lobe pulmonary mass.
- CT: Right upper lobe mass measuring up to 5.5 cm in diameter as above, highly suspicious for pulmonary malignancy.
- with history of active smoking and COPD, will need evaluation. Pulm planning OP Bronch and biopsy in June
- smoking cessation advised
- continue nebs per pulm
- continue O2
- 06/11: CT-PE study: no PE
Dysphagia and aspiration secondary to esophageal impaction
Noted on presentation imaging as well as VSE
GI following
Status post post EGD on 06/06 with findings of a large amount of food debris in the entire esophagus removed. Grade D esophagitis throughout the esophagus due to food impaction/erosion. Mild Schatzki ring.
Reported ongoing aspiration after procedure
Speech evaluation ongoing with repeat VSE c/w improved oropharyngeal phase
With persistent dysphagia, suspect secondary to esophagitis related to food impaction plan is to perform esophagogram which showed possible but no definitive achalasia
diet: regular per GI (small portions, liquids with each bolus, upright as possible)
Resume preadmission medication regimen
Chronic hyponatremia
Urine Na suggest avid uptake suggestive possible of volume depletion .Na normal .DC FR
CKD stage III with baseline creatinine 1.4�1.5
Alcohol use disorder without evidence of withdrawal
Patient drinks 16 ounces of wine daily last drink was yesterday 05/31/2025 evening she drinks 5 times a week. No prior alcohol withdrawal.
- MSAS screen per protocol
- Cessation advised
Cognitive impairment
-reported by sister for the past year
#Reported staring episodes x 6 months
Witnessed staring episode in hospital by myself lasting approximately 1 minute patient unaware
-Cognitive impairment assessment: Mini cog 1 out of 5 correct
-Recommend outpatient MRI brain and neuropsychological testing. Definitely would need MRI imaging of the brain with the newfound right upper lobe mass
-CT head No acute intracranial abnormality compatible with chronic small vessel ischemic disease mild global peripheral volume loss
Right-sided carotid bruit history PAD/CAD
- Ultrasound noted with coronary artery disease close of 50 to 69% on the left and close to 50% on the right.
- Follow-up with vascular as before.
Recent acute Constipation 05/19/2025-- large size stool bolus in rectal vault, has since passed
- Heme positive stool was due to to severe constipation, possibly hemorrhoids
PAD s/p Right Iliac Stent and Right Femoral Endarterectomy
HLD
- Continue statin, aspirin/Xarelto.
- repeat arterial US consistent with op 05/17/25. d/w Dr. Adams - no intervention needed. OP f/u
Essential Hypertension
Blood pressure not under goal
- continue candesartan, beta-jackeline, oral hydralazine - titrated as possible for goal normotension
GERD
- continue PPI twice daily
Anxiety/Depression/Insomnia
- continue lorazepam as needed
Tobacco Use Disorder
- Encourage smoking cessation
- Offer Nicorette gum as needed
Back pain
- suspect from immobility and bed position
- Lumbar Xray
- Lidocaine patches
DVT prophylaxis: xarelto
Code: Full
Anticipated Discharge: > 48 hours
Subjective/Interval History
-
Date of Service: June 13, 2025
reports some mild back pain but denies other complaints
Objective Data
-
Labs:
Laboratory Results
06/13/25
04:40
WBC 11.4 H
Hgb 8.0 L
Hct 23.4 L
Plt Count 312
Sodium 133 L
Potassium 4.6
Chloride 108 H
Carbon Dioxide 24
BUN 31 H
Creatinine 1.6 H
Glucose 87
Calcium 8.3 L
Vital Signs:
Vital Signs
Temp Pulse Resp BP Pulse Ox
98.3 F 86 20 178/68 93
06/13/25 07:05 06/13/25 08:30 06/13/25 07:49 06/13/25 08:30 06/13/25 07:49
I&O
06/12/25 06/13/25 06/14/25
06:59 06:59 06:59
Intake Total 600 / 600 960 / 960
Balance 600 / 600 960 / 960
Physical Exam
-
General: No Apparent Distress and Other (frail)
HEENT: Normocephalic and Atraumatic
Respiratory: Negative Wheezes
Cardiac: Regular Rhythm and S1/S2
GI: Soft
Neuro: AO x 3
Psych: Calm
Data Reviewed
-
Total Time Spent with Patient (in minutes): 41
Labs: Labs Reviewed by me
--- NOTE | 2025-06-13 10:23 | VATNOTE ---
PT. STATED SHE MAY BE DISCHARGED TO A REHAB WITH THE PICC LINE.
--- NOTE | 2025-06-13 10:28 | VATNOTE ---
Right arm Midline catheter flushes easily. Positive brisk blood return noted.
[2025-06-13] MEDS: LIDOCAINE 4% PATCH 2 PATCH TOPICAL (10:30)
[2025-06-13] MEDS: ATIVAN 1 MG PO (21:03)
[2025-06-14] VITALS (8 sets, daily range): BP systolic 135–179; BP diastolic 55–95; PULSE 81; O2SAT 94
[2025-06-14 05:51] LABS: Hematocrit 25.3 % (37.0-47.0); Hemoglobin 8.4 g/dL (12.0-16.0); Mean Corp Hgb Conc. 33.2 g/dL (33.0-37.0); Mean Corpuscular Volume 100.8 fL (81.0-99.0); Platelet Count 330 10^3/uL (130-400); Red Cell Dist. Width 12.7 % (11.5-14.5)
[2025-06-14 06:13] LABS: Blood Urea Nitrogen 33 mg/dl (7-17); Calcium 8.6 mg/dl (8.4-10.2); Carbon Dioxide 24 mmol/L (22-30); Chloride 109 mmol/L (98-107); Estimated Creatinine Clearance 19 ml/min; Glucose 97 mg/dl (70-99); Potassium 4.5 mmol/L (3.5-5.1); Sodium 135 mmol/L (135-145); eGFR 29.75
[2025-06-14] MEDS: SPIRIVA RESPIMAT 2.5 MCG 2 PUFF INH (07:38)
[2025-06-14] MEDS: CRESTOR 20 MG PO (09:33)
[2025-06-14] MEDS: SENOKOT PO ×2 (09:34→19:50)
[2025-06-14] MEDS: SENOKOT-S PO (09:34)
[2025-06-14] MEDS: BYSTOLIC 10 MG PO (09:34)
[2025-06-14] MEDS: APRESOLINE 25 MG PO ×2 (09:35→19:50)
[2025-06-14] MEDS: XARELTO 2.5 MG PO ×2 (09:35→19:50)
[2025-06-14] MEDS: FOLVITE 1 MG PO (09:35)
[2025-06-14] MEDS: VITAMIN B1 100 MG PO ×2 (09:35→19:50)
[2025-06-14] MEDS: TYLENOL 650 MG PO ×2 (09:35→19:50)
[2025-06-14] MEDS: PROTONIX 40 MG PO ×2 (09:35→19:52)
[2025-06-14] MEDS: LYRICA 50 MG PO ×2 (09:36→19:50)
[2025-06-14] MEDS: CARAFATE SUSPENSION 1 GM PO ×2 (09:36→22:11)
[2025-06-14] MEDS: COLACE 100 MG PO (09:36)
[2025-06-14] MEDS: ATACAND 32 MG PO (09:37)
[2025-06-14] MEDS: MIRALAX PO (09:43)
[2025-06-14] MEDS: LIDOCAINE 4% PATCH TOPICAL (09:44)
[2025-06-14] MEDS: NICODERM TRANSDERMAL 14 MG TRANSDERM (09:45)
--- NOTE | 2025-06-14 10:58 | PTCARENOTE ---
BRIDGER arellano text to hospitalist in regards to pt 3x episodes of ST 130-140's this shift. Based on tele monitor...has been happening since yesterday day shift
[2025-06-14] MEDS: CARAFATE SUSPENSION PO ×2 (11:43→16:09)
--- NOTE | 2025-06-14 12:24 | CM ---
Addendum entered by Cesar Pacheco 06/14/25 13:41:
According to pt is medically stable to be discharged.
CM spoke to [facility] ems director and she stated they do not have a bed available today, will have a bed tomorrow and pt is accepted for admission to [facility] tomorrow.
CM initiated an auth from [facility], spoke to artist's representative Katherine, pending reference number [id number]. Requested pt's clinical faxed to [facility] for review at [phone].
Awaiting for an auth.
D/C plan: [facility] tomorrow 06/15/25.
Original Note:
CM following re: discharge planning.
Reviewed pt's chart, met with pt.
Pt is s/p removal of food impaction with noted grad D esophagitis, mild Schatzki's ring, continue supportive care.
PT and POT continue recommending SNF level of care. [facility] accepted the pt based on bed availability on the day of discharge.
Updated pt's clinical faxed to [facility] for a review.
D/C plan: [facility] based on bed availability on the day of discharge.
CM will follow with discharge plan updates as hospitalization progresses
--- NOTE | 2025-06-14 12:31 | W.PN.HOSP.TC ---
Today's Communication/Plan
-
Stable oral intake.
Optimized cardiovascular and respiratory status.
Continue physical therapy.
Discharge planning to senior care facility.
Assessment / Plan
Assessment / Plan
Impression:
Right proximal femoral neck fracture secondary to mechanical trauma and osteoporosis
Aspiration syndrome secondary to esophageal food impaction.
Acute anemia
Conditions prior to admission:
Right upper lobe mass new since 2022.
Suspected chronic hypoxic respiratory failure with asymptomatic hypoxia with pulse ox of 88-90% on room air at rest
Tobacco use disorder.
Chronic hyponatremia.
COPD without exacerbation.
Essential hypertension
CAD/PAD.
Neuropathy.
GERD.
Anxiety/depression.
Alcohol use disorder without evidence of withdrawal
Mild protein calorie malnutrition with BMI of 19.
Plan
Mechanical fall with right proximal femoral neck fracture
- S/p right hip arthroplasty without immediate complications.
- Continue pain regimen PT OT eval.
- WBAT to RLE with walker. THPs x6-8 weeks.
- Modified Xarelto DVT ppx.
- Case management to look into disposition.
Acute anemia, multifactorial secondary to postoperative blood loss and dilution. Hemoglobin trending down 12.3�9.0. Monitor closely.
Asymptomatic hypoxia saturations 88 to 90% on room air at rest. Suspect chronic hypoxic respiratory insufficiency. History of COPD and ongoing tobacco use. Started on oxygen as needed to keep saturations more than 91% on room air. Chest x-ray
shows new large right upper lobe pulmonary mass.
- CT: Right upper lobe mass measuring up to 5.5 cm in diameter as above, highly suspicious for pulmonary malignancy.
- with history of active smoking and COPD, will need evaluation. Pulm planning OP Bronch and biopsy in June
- smoking cessation advised
- continue nebs per pulm
- continue O2
- 06/11: CT-PE study: no PE
Dysphagia and aspiration secondary to esophageal impaction
Noted on presentation imaging as well as VSE
GI following
Status post post EGD on 06/06 with findings of a large amount of food debris in the entire esophagus removed. Grade D esophagitis throughout the esophagus due to food impaction/erosion. Mild Schatzki ring.
Reported ongoing aspiration after procedure
Speech evaluation ongoing with repeat VSE c/w improved oropharyngeal phase
With persistent dysphagia, suspect secondary to esophagitis related to food impaction plan is to perform esophagogram which showed possible but no definitive achalasia
diet: regular per GI (small portions, liquids with each bolus, upright as possible)
Resume preadmission medication regimen
Chronic hyponatremia
Urine Na suggest avid uptake suggestive possible of volume depletion .Na normal .DC FR
CKD stage III with baseline creatinine 1.4�1.5
Alcohol use disorder without evidence of withdrawal
Patient drinks 16 ounces of wine daily last drink was yesterday 05/31/2025 evening she drinks 5 times a week. No prior alcohol withdrawal.
- MSAS screen per protocol
- Cessation advised
Cognitive impairment
-reported by sister for the past year
#Reported staring episodes x 6 months
Witnessed staring episode in hospital by myself lasting approximately 1 minute patient unaware
-Cognitive impairment assessment: Mini cog 1 out of 5 correct
-Recommend outpatient MRI brain and neuropsychological testing. Definitely would need MRI imaging of the brain with the newfound right upper lobe mass
-CT head No acute intracranial abnormality compatible with chronic small vessel ischemic disease mild global peripheral volume loss
Right-sided carotid bruit history PAD/CAD
- Ultrasound noted with coronary artery disease close of 50 to 69% on the left and close to 50% on the right.
- Follow-up with vascular as before.
Recent acute Constipation 05/19/2025-- large size stool bolus in rectal vault, has since passed
- Heme positive stool was due to to severe constipation, possibly hemorrhoids
PAD s/p Right Iliac Stent and Right Femoral Endarterectomy
HLD
- Continue statin, aspirin/Xarelto.
- repeat arterial US consistent with op 05/17/25. d/w Dr. Adams - no intervention needed. OP f/u
Essential Hypertension
Blood pressure not under goal
- continue candesartan, beta-jackeline, oral hydralazine - titrated as possible for goal normotension
GERD
- continue PPI twice daily
Anxiety/Depression/Insomnia
- continue lorazepam as needed
Tobacco Use Disorder
- Encourage smoking cessation
- Offer Nicorette gum as needed
Back pain
- suspect from immobility and bed position
- Lumbar Xray
- Lidocaine patches
DVT prophylaxis: xarelto
Code: Full
Anticipated Discharge: Within 24 hours
Subjective/Interval History
-
Date of Service: June 14, 2025
Objective Data
-
Labs:
Laboratory Results
06/14/25
05:28
WBC 13.1 H
Hgb 8.4 L
Hct 25.3 L
Plt Count 330
Sodium 135
Potassium 4.5
Chloride 109 H
Carbon Dioxide 24
BUN 33 H
Creatinine 1.8 H
Glucose 97
Calcium 8.6
Vital Signs:
Vital Signs
Temp Pulse Resp BP Pulse Ox
98.1 F 70 16 148/55 95
06/14/25 11:25 06/14/25 11:25 06/14/25 11:25 06/14/25 11:25 06/14/25 11:25
I&O
06/13/25 06/14/25 06/15/25
06:59 06:59 06:59
Intake Total 960 / 960 660 / 660
Balance 960 / 960 660 / 660
Physical Exam
-
General: No Apparent Distress and Other (frail)
HEENT: Normocephalic and Atraumatic
Respiratory: Negative Wheezes
Cardiac: Regular Rhythm and S1/S2
GI: Soft
Neuro: AO x 3
Psych: Calm
[2025-06-14] MEDS: COLACE PO (19:50)
[2025-06-14] MEDS: SENOKOT-S 1 TABLET PO (19:50)
[2025-06-14] MEDS: ATIVAN 1 MG PO (22:11)
[2025-06-14] MEDS: ROXICODONE 5 MG PO (23:15)
[2025-06-15 03:25] VITALS: BP 163/63
[2025-06-15 06:44] LABS: Hematocrit 26.1 % (37.0-47.0); Hemoglobin 8.6 g/dL (12.0-16.0)
[2025-06-15 07:20] VITALS: BP 143/73
[2025-06-15] MEDS: CARAFATE SUSPENSION 1 GM PO ×2 (07:35→11:26)
[2025-06-15] MEDS: SPIRIVA RESPIMAT 2.5 MCG 2 PUFF INH (07:50)
[2025-06-15] MEDS: TYLENOL 650 MG PO (07:51)
[2025-06-15] MEDS: PROTONIX 40 MG PO (07:51)
[2025-06-15] MEDS: MIRALAX PO (07:52)
[2025-06-15] MEDS: LIDOCAINE 4% PATCH 2 PATCH TOPICAL (07:52)
[2025-06-15] MEDS: NICODERM TRANSDERMAL 14 MG TRANSDERM (07:52)
[2025-06-15] MEDS: LYRICA 50 MG PO (07:53)
[2025-06-15] MEDS: ATACAND 32 MG PO (07:53)
[2025-06-15] MEDS: FOLVITE 1 MG PO (07:53)
[2025-06-15] MEDS: ROXICODONE 5 MG PO (07:53)
[2025-06-15] MEDS: XARELTO 2.5 MG PO (07:53)
[2025-06-15] MEDS: APRESOLINE 25 MG PO (07:54)
[2025-06-15] MEDS: BYSTOLIC 10 MG PO (07:54)
[2025-06-15] MEDS: COLACE PO (07:54)
[2025-06-15] MEDS: SENOKOT PO (07:54)
[2025-06-15] MEDS: VITAMIN B1 100 MG PO (07:54)
[2025-06-15] MEDS: CRESTOR 20 MG PO (07:54)
[2025-06-15] MEDS: SENOKOT-S PO (08:19)
--- NOTE | 2025-06-15 09:40 | CM ---
CM following re: discharge planning.
Reviewed pt's chart, met with [pt.
According to MD pt is medically stable to be discharged today. Pt is aware, expressed her agreement. IMM reviewed, placed on chart, pt has a copy.
Pt is approved by [facility] for SNF level of care at [facility] for 3 initial days from today 06/15/25 till 06/17/25 with LCD and NRD 06/17/25. Reviewer: Qian Balderrama [phone]; fax [phone]. Auth: [id number]
Auth information forwarded to [facility] director social welfare and she confirmed that pt is accepted for admission today.
to arrange ambulance BLS. [facility] completed and left with
[facility] nursing report: [phone]
Discharge instructions fax: [phone]
D/C plan: [facility].
--- NOTE | 2025-06-15 09:45 | W.DS.TRANS ---
DC Summary - Educational Guidance Counselor
-
Discharge Instructions:
Discharge Diagnosis/Procedures Impression:
Right proximal femoral neck fracture secondary
to mechanical trauma and osteoporosis
Aspiration syndrome secondary to esophageal food
impaction.
Acute anemia
Conditions prior to admission:
Right upper lobe mass new since 2022.
Suspected chronic hypoxic respiratory failure
with asymptomatic hypoxia with pulse ox of 88-90
% on room air at rest
Tobacco use disorder.
Chronic hyponatremia.
COPD without exacerbation.
Essential hypertension
CAD/PAD.
Neuropathy.
GERD.
Anxiety/depression.
Alcohol use disorder without evidence of
withdrawal
Mild protein calorie malnutrition with BMI of 19
.
Diet Regular
Instructions:
Stand-Alone Forms:
Changes to Home Medications: Yes
Discharge Medications:
DC Medications w/original date entered in [facility]
budesonide 0.5 mg/2 mL suspension for nebulization 0.5 mg inhalation R BID 01/06/23
ipratropium 0.5 mg-albuterol 3 mg (2.5 mg base)/3 mL nebulization soln 3 ml inhalation R BID Lung/breathing issues 01/06/23
pantoprazole 40 mg tablet,delayed release 40 mg PO BID Gastrointestinal issue 01/06/23
rosuvastatin 20 mg tablet 20 mg PO DAILY High cholesterol 01/06/23
rivaroxaban 2.5 mg tablet (Xarelto) 2.5 mg PO BID #90 tabs 02/07/23
tiotropium bromide 1.25 mcg/actuation mist for inhalation (Spiriva Respimat) 2 puff inhalation R DAILY 05/19/24
acetaminophen 325 mg tablet (Tylenol) 650 mg PO BID 06/01/25
polyethylene glycol 3350 17 gram oral powder packet (Miralax) 17 g PO DAILY 06/01/25
candesartan 16 mg tablet 32 mg (2 x 16 mg) PO DAILY #30 tabs 06/15/25
docusate sodium 100 mg capsule 100 mg PO BID #30 caps 06/15/25
hydralazine 25 mg tablet 25 mg PO BID #60 tabs 06/15/25
lorazepam 1 mg tablet 1 mg PO HS #14 tabs 06/15/25
nebivolol 10 mg tablet 10 mg PO DAILY #60 tabs 06/15/25
nicotine 14 mg/24 hr daily transdermal patch 14 mg transdermal DAILY #10 ea 06/15/25
oxycodone 5 mg tablet 5 mg PO Q4HPRN PRN moderate pain #14 tabs 06/15/25
pregabalin 50 mg capsule 50 mg PO BID mild Pain #20 caps 06/15/25
sucralfate 100 mg/mL oral suspension 1 gm PO ACHS #60 mL 06/15/25
Home Medication Changes
Analgesic regimen.
Nebivolol increased
Pending Results: No
[2025-06-15 11:26] VITALS: BP 152/58
--- NOTE | 2025-06-15 12:20 | VATNOTE ---
Midline D/C'd w/ no complications. TCL retrieved was 14 cm. Pressure dressing applied.
== END 2025-06-15 13:20 | DRG 522 ==
LOC: 2 SOUTH 17:17
PROVIDERS: Clinical Nurse Specialist Family Health; Internal Medicine; Nurse Practitioner Gerontology; Physician Assistant Medical; Student in an Organized Health Care Education/Training Program; ADMITTING PHYSICIAN Internal Medicine; ATTENDING PHYSICIAN Internal Medicine; CONSULT PHYSICIAN Internal Medicine Critical Care Medicine; CONSULT PHYSICIAN Specialist; EMERGENCY PHYSICIAN Emergency Medicine; FAMILY PHYSICIAN Family Medicine; OTHER PHYSICIAN Internal Medicine Cardiovascular Disease; OTHER PHYSICIAN Specialist
PROC: 0SRR0J9 Replacement of Right Hip Joint, Femoral Surface with Synthetic Substitute, Cemented, Open Approach (ICD-10-PCS; 2025-06-03)
PROC: 0DC58ZZ Extirpation of Matter from Esophagus, Via Natural or Artificial Opening Endoscopic (ICD-10-PCS; 2025-06-06)
DX: M80.051A Age-related osteoporosis with current pathological fracture, right femur, initial encounter for fracture (principal); E87.1 Hypo-osmolality and hyponatremia; I47.10 Supraventricular tachycardia, unspecified; K22.10 Ulcer of esophagus without bleeding; J96.11 Chronic respiratory failure with hypoxia; E44.1 Mild protein-calorie malnutrition; Z68.1 Body mass index [BMI] 19.9 or less, adult; D62 Acute posthemorrhagic anemia; R04.2 Hemoptysis; W06.XXXA Fall from bed, initial encounter; R41.89 Other symptoms and signs involving cognitive functions and awareness; I12.9 Hypertensive chronic kidney disease with stage 1 through stage 4 chronic kidney disease, or unspecified chronic kidney disease; K59.00 Constipation, unspecified; E78.00 Pure hypercholesterolemia, unspecified; J43.9 Emphysema, unspecified; K21.9 Gastro-esophageal reflux disease without esophagitis; I25.10 Atherosclerotic heart disease of native coronary artery without angina pectoris; R13.10 Dysphagia, unspecified; W44.F3XA Food entering into or through a natural orifice, initial encounter; T18.128A Food in esophagus causing other injury, initial encounter; K22.89 Other specified disease of esophagus; E87.6 Hypokalemia; N18.30 Chronic kidney disease, stage 3 unspecified; K22.2 Esophageal obstruction; R91.8 Other nonspecific abnormal finding of lung field; I65.22 Occlusion and stenosis of left carotid artery; I73.9 Peripheral vascular disease, unspecified; G47.00 Insomnia, unspecified; I08.0 Rheumatic disorders of both mitral and aortic valves; F41.9 Anxiety disorder, unspecified; F32.A Depression, unspecified; M54.9 Dorsalgia, unspecified; F10.10 Alcohol abuse, uncomplicated; F17.210 Nicotine dependence, cigarettes, uncomplicated; G62.9 Polyneuropathy, unspecified; Z95.820 Peripheral vascular angioplasty status with implants and grafts; Z79.01 Long term (current) use of anticoagulants; Z79.82 Long term (current) use of aspirin; Z86.73 Personal history of transient ischemic attack (TIA), and cerebral infarction without residual deficits
CPT/HCPCS: 36600; 70450; 70491; 71046; 71250; 71275; 72110; 73502; 73560; 73590; 74221; 74230; 80048; 80053; 80306; 80307; 81003; 81015; 82010; 82077; 82607; 82746; 82805; 82962; 82977; 83735; 83935; 84100; 84300; 84443; 85014; 85018; 85025; 85027; 85610; 85730; 86850; 86900; 86901; 87086; 92526; 92610; 92611; 93005; 93306; 93880; 93922; 93925; 93970; 94060; 94640; 97110; 97116; 97163; 97167; 97530; 97535; 99285; 99406; C1713; C1776; Q9967

== ENCOUNTER → 2025-06-20 09:14 | Outpatient (REF) | payer OTHER, MEDICARE, SELFPAY ==
[2025-06-20 10:24] LABS: Hematocrit 21.5 % (37.0-47.0); Hemoglobin 7.0 g/dL (12.0-16.0); Mean Corp Hgb Conc. 32.6 g/dL (33.0-37.0); Mean Corpuscular Volume 101.9 fL (81.0-99.0); Nucleated Red Blood Cells % 0 %; Platelet Count 311 10^3/uL (130-400); Red Cell Dist. Width 12.9 % (11.5-14.5)
[2025-06-20 10:36] LABS: ALT (SGPT) 36 U/L (0-35); AST (SGOT) 42 U/L (14-36); Albumin 2.4 g/dl (3.5-5.0); Alkaline Phosphatase 90 U/L (38-126); Blood Urea Nitrogen 41 mg/dl (7-17); Calcium 8.7 mg/dl (8.4-10.2); Carbon Dioxide 25 mmol/L (22-30); Chloride 106 mmol/L (98-107); Glucose 83 mg/dl (70-99); Potassium 4.5 mmol/L (3.5-5.1); Sodium 134 mmol/L (135-145); Total Protein 5.0 g/dl (6.3-8.2); eGFR 34.27
== END ==
LOC: OLABP 09:14
PROVIDERS: ATTENDING PHYSICIAN Family Medicine
DX: S72.91XD Unspecified fracture of right femur, subsequent encounter for closed fracture with routine healing (principal); W19.XXXD Unspecified fall, subsequent encounter; D64.9 Anemia, unspecified; E44.1 Mild protein-calorie malnutrition; E87.1 Hypo-osmolality and hyponatremia; F10.20 Alcohol dependence, uncomplicated; F41.9 Anxiety disorder, unspecified; G62.9 Polyneuropathy, unspecified; I10 Essential (primary) hypertension; I25.10 Atherosclerotic heart disease of native coronary artery without angina pectoris; J44.9 Chronic obstructive pulmonary disease, unspecified; J69.0 Pneumonitis due to inhalation of food and vomit; J96.10 Chronic respiratory failure, unspecified whether with hypoxia or hypercapnia; K21.9 Gastro-esophageal reflux disease without esophagitis
CPT/HCPCS: 36415; 80053; 85025

== ENCOUNTER → 2025-06-21 10:53 | Outpatient (REF) | payer OTHER, MEDICARE, SELFPAY ==
[2025-06-21 12:21] LABS: Hematocrit 20.8 % (37.0-47.0); Hemoglobin 6.7 g/dL (12.0-16.0); Mean Corp Hgb Conc. 32.2 g/dL (33.0-37.0); Mean Corpuscular Volume 101.5 fL (81.0-99.0); Platelet Count 295 10^3/uL (130-400); Red Cell Dist. Width 13.1 % (11.5-14.5)
== END ==
LOC: OLABP 10:53
PROVIDERS: ATTENDING PHYSICIAN Family Medicine
DX: S72.91XD Unspecified fracture of right femur, subsequent encounter for closed fracture with routine healing (principal); W19.XXXD Unspecified fall, subsequent encounter; D64.9 Anemia, unspecified; E44.1 Mild protein-calorie malnutrition; E87.1 Hypo-osmolality and hyponatremia; F10.20 Alcohol dependence, uncomplicated; F41.9 Anxiety disorder, unspecified; G62.9 Polyneuropathy, unspecified; I10 Essential (primary) hypertension; I25.10 Atherosclerotic heart disease of native coronary artery without angina pectoris; J44.9 Chronic obstructive pulmonary disease, unspecified; J69.0 Pneumonitis due to inhalation of food and vomit; J96.10 Chronic respiratory failure, unspecified whether with hypoxia or hypercapnia; K21.9 Gastro-esophageal reflux disease without esophagitis
CPT/HCPCS: 36415; 85027

== ENCOUNTER → 2025-06-22 14:11 | Outpatient (REF) | payer OTHER, MEDICARE, SELFPAY ==
[2025-06-22 14:39] LABS: Hematocrit 24.9 % (37.0-47.0); Hemoglobin 8.4 g/dL (12.0-16.0); Mean Corp Hgb Conc. 33.7 g/dL (33.0-37.0); Mean Corpuscular Volume 97.3 fL (81.0-99.0); Nucleated Red Blood Cells % 0 %; Platelet Count 308 10^3/uL (130-400); Red Cell Dist. Width 15.4 % (11.5-14.5)
== END ==
LOC: OLABP 14:11
PROVIDERS: ATTENDING PHYSICIAN Family Medicine
DX: D64.9 Anemia, unspecified (principal); E44.1 Mild protein-calorie malnutrition; E87.1 Hypo-osmolality and hyponatremia; F10.20 Alcohol dependence, uncomplicated; I10 Essential (primary) hypertension; I25.10 Atherosclerotic heart disease of native coronary artery without angina pectoris; J44.9 Chronic obstructive pulmonary disease, unspecified; J69.0 Pneumonitis due to inhalation of food and vomit
CPT/HCPCS: 36415; 85025

== ENCOUNTER → 2025-06-27 11:23 | Outpatient (REF) | payer OTHER, MEDICARE, SELFPAY ==
[2025-06-27 12:38] LABS: Hematocrit 24.8 % (37.0-47.0); Hemoglobin 8.0 g/dL (12.0-16.0); Mean Corp Hgb Conc. 32.3 g/dL (33.0-37.0); Mean Corpuscular Volume 99.6 fL (81.0-99.0); Nucleated Red Blood Cells % 0 %; Platelet Count 340 10^3/uL (130-400); Red Cell Dist. Width 13.9 % (11.5-14.5)
== END ==
LOC: OLABP 11:23
PROVIDERS: ATTENDING PHYSICIAN Family Medicine
DX: I10 Essential (primary) hypertension (principal); I25.10 Atherosclerotic heart disease of native coronary artery without angina pectoris; J44.9 Chronic obstructive pulmonary disease, unspecified; J96.10 Chronic respiratory failure, unspecified whether with hypoxia or hypercapnia; K21.9 Gastro-esophageal reflux disease without esophagitis; S72.91XD Unspecified fracture of right femur, subsequent encounter for closed fracture with routine healing; W19.XXXD Unspecified fall, subsequent encounter; D64.9 Anemia, unspecified; E44.1 Mild protein-calorie malnutrition; E87.1 Hypo-osmolality and hyponatremia; F10.20 Alcohol dependence, uncomplicated; F41.9 Anxiety disorder, unspecified; G62.9 Polyneuropathy, unspecified
CPT/HCPCS: 36415; 85025

== ENCOUNTER → 2025-07-01 10:23 | Outpatient (REF) | payer OTHER, MEDICARE, SELFPAY ==
[2025-07-01 11:11] LABS: Hematocrit 24.8 % (37.0-47.0); Hemoglobin 7.9 g/dL (12.0-16.0); Mean Corp Hgb Conc. 31.9 g/dL (33.0-37.0); Mean Corpuscular Volume 98.8 fL (81.0-99.0); Platelet Count 396 10^3/uL (130-400); Red Cell Dist. Width 13.9 % (11.5-14.5)
== END ==
LOC: OLABP 10:23
PROVIDERS: ATTENDING PHYSICIAN Family Medicine
DX: E87.1 Hypo-osmolality and hyponatremia (principal); D64.9 Anemia, unspecified; E44.1 Mild protein-calorie malnutrition; F10.20 Alcohol dependence, uncomplicated; F41.9 Anxiety disorder, unspecified; G62.9 Polyneuropathy, unspecified; I10 Essential (primary) hypertension; I25.10 Atherosclerotic heart disease of native coronary artery without angina pectoris; J44.9 Chronic obstructive pulmonary disease, unspecified; J69.0 Pneumonitis due to inhalation of food and vomit; K21.9 Gastro-esophageal reflux disease without esophagitis
CPT/HCPCS: 36415; 85027

== ENCOUNTER → 2025-07-02 09:34 | Outpatient (REF) | payer OTHER, MEDICARE, SELFPAY ==
[2025-07-02 11:44] LABS: Hematocrit 24.5 % (37.0-47.0); Hemoglobin 7.9 g/dL (12.0-16.0); Mean Corp Hgb Conc. 32.2 g/dL (33.0-37.0); Mean Corpuscular Volume 96.8 fL (81.0-99.0); Platelet Count 404 10^3/uL (130-400); Red Cell Dist. Width 14.1 % (11.5-14.5)
== END ==
LOC: OLABP 09:34
PROVIDERS: ATTENDING PHYSICIAN Family Medicine
DX: K21.9 Gastro-esophageal reflux disease without esophagitis (principal); J96.10 Chronic respiratory failure, unspecified whether with hypoxia or hypercapnia; E87.1 Hypo-osmolality and hyponatremia; F10.20 Alcohol dependence, uncomplicated; G62.9 Polyneuropathy, unspecified; I10 Essential (primary) hypertension; I25.10 Atherosclerotic heart disease of native coronary artery without angina pectoris; J44.9 Chronic obstructive pulmonary disease, unspecified; J69.0 Pneumonitis due to inhalation of food and vomit; F41.9 Anxiety disorder, unspecified
CPT/HCPCS: 36415; 85027

== ENCOUNTER → 2025-07-04 09:57 | Outpatient (REF) | payer OTHER, MEDICARE, SELFPAY ==
[2025-07-04 10:35] LABS: Hematocrit 23.6 % (37.0-47.0); Hemoglobin 7.5 g/dL (12.0-16.0); Mean Corp Hgb Conc. 31.8 g/dL (33.0-37.0); Mean Corpuscular Volume 96.3 fL (81.0-99.0); Nucleated Red Blood Cells % 0 %; Platelet Count 415 10^3/uL (130-400); Red Cell Dist. Width 14.1 % (11.5-14.5)
== END ==
LOC: OLABP 09:57
PROVIDERS: ATTENDING PHYSICIAN Family Medicine
DX: S72.91XD Unspecified fracture of right femur, subsequent encounter for closed fracture with routine healing (principal); W19.XXXD Unspecified fall, subsequent encounter; D64.9 Anemia, unspecified; E44.1 Mild protein-calorie malnutrition; E87.1 Hypo-osmolality and hyponatremia; F10.20 Alcohol dependence, uncomplicated; F41.9 Anxiety disorder, unspecified; G62.9 Polyneuropathy, unspecified; I10 Essential (primary) hypertension; I25.10 Atherosclerotic heart disease of native coronary artery without angina pectoris; J44.9 Chronic obstructive pulmonary disease, unspecified; J69.0 Pneumonitis due to inhalation of food and vomit; J96.10 Chronic respiratory failure, unspecified whether with hypoxia or hypercapnia; K21.9 Gastro-esophageal reflux disease without esophagitis
CPT/HCPCS: 36415; 85025

== ENCOUNTER 2025-07-06 12:06 | Emergency (ER) | payer MEDICARE, SELFPAY ==
[2025-07-06 12:08] VITALS: BP 185/75
[2025-07-06 15:07] VITALS: BMI 23.0
[2025-07-06 15:08] VITALS: BP 190/70
[2025-07-06] MEDS: TYLENOL 650 MG PO (15:21)
--- NOTE | 2025-07-06 15:22 | ED.GENMED ---
History of Present Illness
General
Chief Complaint: Fall
Time Seen by Provider: 07/06/25 14:36
History of Present Illness
History of Present Illness:
70-year-old female presents to the emergency department for evaluation of a headache after striking the back of her head against a nearby table while at [employer]. Denies LOC. She is on Xarelto currently. She was recently discharged to this
hospital to beginning of June after a proximal femoral neck fracture, underwent operative intervention. She is on Xarelto due to prior diagnosis of DVT and this has been maintained since surgery. She is also newly found to have chronic
hypoxemic respiratory failure and is on chronic oxygen as a result.
Past History
Past History
ED Past Medical History: Arrthythmia, CAD, COPD, CVA, HTN and Hypercholesterolemia
ED Past Surgical History: and Other
Social History
Tobacco: Non-smoker
Alcohol: None
Drug: None
Personal:
Living: with family
Review of Systems
Review of Systems
Allergies reviewed?: Yes
All Other Systems: ROS reviewed and negative except as documented in HPI and ROS
Phy Exam
Physical Exam
Physical Exam:
GEN: Well appearing, NAD, WDWN
HEENT: Large cephalohematoma to the right occiput, oral mucosa moist, no scleral icterus
Cardiac: Regular rate
Lung: No respiratory distress, no tachypnea
MSK: No gross deformity or injuries, no midline cervical/thoracic/lumbar spine tenderness
Skin: Good color, no pallor or jaundice, no rashes
Neuro: AO x3, cranial nerves II through XII grossly intact, moves all extremities freely
Psych: Calm, cooperative
Course
Orders/Labs/Results
Orders:
Orders
07/06/25 12:[address] [CT Head W/o Iv Contrast] Urgent
Comment:
Reason For Exam: fall, +head strike, +xarelto
07/06/25 15:05
Acetaminophen [Tylenol] 650 mg PO NOW STA
Vital Signs
Initial and Last Documented VS:
Initial Vital Signs
Temp Pulse Resp BP Pulse Ox
98.5 F 83 16 185/75 98
07/06/25 12:08 07/06/25 12:08 07/06/25 12:08 07/06/25 12:08 07/06/25 12:08
Last Documented Vital Signs
Temp Pulse Resp BP Pulse Ox
97.8 F 71 18 190/70 93
07/06/25 15:08 07/06/25 15:08 07/06/25 15:08 07/06/25 15:08 07/06/25 15:24
MDM/Problems Addressed
MDM/Problems Addressed:
CT of the head obtained due to patient's anticoagulant use and this was unremarkable. Will be discharged back to [facility]
*Pulse Oximetry
SaO2: 93
Nasal Cannula flow liters per minute: 1
Patient hypoxic: no
*Critical Care Note
Total Time (30-74mins, 75-104mins- exclusive of procedures): Not Applicable
ED Attending Note
-
Portions of this chart may have been created with voice recognition software.� Occasional wrong word or��sound alike� substitutions may have occurred due to the inherent limitations of voice recognition software.
Discharge Plan
Departure
Patient Disposition: Home (Routine Discharge)
Date of Disposition: 07/06/25
Time of Disposition: 15:24
Patient with high blood pressure during this ER visit?: No
Discharge Problem:
Hematoma of scalp
Instructions: Head injury in adults
Prescriptions:
No Action
ipratropium-albuterol 0.5 mg-3 mg(2.5 mg base)/3 mL Solution For Nebulization
3 ml INHALATION R BID
pantoprazole 40 mg Tablet,Delayed Release (Dr/Ec)
40 mg PO BID
budesonide 0.5 mg/2 mL Suspension For Nebulization
0.5 mg INHALATION R BID
rosuvastatin 20 mg Tablet
20 mg PO DAILY
rivaroxaban [Xarelto] 2.5 mg Tablet
2.5 mg PO BID Qty: 90 0RF
Spiriva Respimat 1.25 mcg/actuation mist
2 puff INHALATION R DAILY
acetaminophen [Tylenol] 325 mg Tablet
650 mg PO BID
polyethylene glycol 3350 [Miralax] 17 gram Powder In Packet
17 g PO DAILY
sucralfate 100 mg/mL Suspension
1 gm PO ACHS Qty: 60 0RF
hydralazine 25 mg Tablet
25 mg PO BID Qty: 60 0RF
candesartan 16 mg Tablet
32 mg PO DAILY Qty: 30 0RF
docusate sodium 100 mg Capsule
100 mg PO BID Qty: 30 0RF
nebivolol 10 mg Tablet
10 mg PO DAILY Qty: 60 0RF
nicotine 14 mg/24 hr Patch 24 Hour
14 mg transdermal DAILY Qty: 10 0RF
oxycodone 5 mg Tablet
5 mg PO Q4HPRN PRN (Reason: moderate pain) Qty: 14 0RF
lorazepam 1 mg tablet
1 mg PO HS Qty: 14 0RF
pregabalin 50 mg capsule
50 mg PO BID Qty: 20 0RF
Referrals:
Brenda Machuca DO [Family Provider, General]
Interventions
Interventions:
*Risk Screen - Suicide Last Done: 07/06/25 12:08
*General Assessment Last Done: 07/06/25 15:15
*Neglect/Abuse Screening Last Done: 07/06/25 12:08
*ED- Fall Risk Assessment Last Done: 07/06/25 15:15
*ED COVID-19 Vaccine History Last Done: 07/06/25 15:15
ED-Musculoskeletal Assessment Last Done: 07/06/25 15:16
ED- Neurological Assessment Last Done: 07/06/25 15:16
ED-Skin Assessment Last Done: 07/06/25 15:16
Discharge Date and Time
Print Language: SERBIAN
[2025-07-06 17:39] VITALS: BP 174/65
== END 2025-07-06 19:20 | disposition home or self-care (01) ==
LOC: EMR 12:06
PROVIDERS: EMERGENCY PHYSICIAN Emergency Medicine; FAMILY PHYSICIAN Family Medicine
DX: S00.03XA Contusion of scalp, initial encounter (principal); W22.09XA Striking against other stationary object, initial encounter; I25.10 Atherosclerotic heart disease of native coronary artery without angina pectoris; J44.9 Chronic obstructive pulmonary disease, unspecified; E78.00 Pure hypercholesterolemia, unspecified; I10 Essential (primary) hypertension; Z86.73 Personal history of transient ischemic attack (TIA), and cerebral infarction without residual deficits; J96.11 Chronic respiratory failure with hypoxia; Z99.81 Dependence on supplemental oxygen; Z86.718 Personal history of other venous thrombosis and embolism; Z79.01 Long term (current) use of anticoagulants; Z87.81 Personal history of (healed) traumatic fracture
CPT/HCPCS: 99284; 70450

== ENCOUNTER → 2025-07-08 10:21 | Outpatient (REF) | payer OTHER, MEDICARE, SELFPAY ==
[2025-07-08 10:42] LABS: Hematocrit 26.1 % (37.0-47.0); Hemoglobin 8.6 g/dL (12.0-16.0); Mean Corp Hgb Conc. 33.0 g/dL (33.0-37.0); Mean Corpuscular Volume 95.6 fL (81.0-99.0); Nucleated Red Blood Cells % 0 %; Platelet Count 346 10^3/uL (130-400); Red Cell Dist. Width 15.3 % (11.5-14.5)
== END ==
LOC: OLABP 10:21
PROVIDERS: ATTENDING PHYSICIAN Family Medicine
DX: S72.91XD Unspecified fracture of right femur, subsequent encounter for closed fracture with routine healing (principal); D64.9 Anemia, unspecified; E44.1 Mild protein-calorie malnutrition; E87.1 Hypo-osmolality and hyponatremia; F10.20 Alcohol dependence, uncomplicated; F41.9 Anxiety disorder, unspecified; G62.9 Polyneuropathy, unspecified; I10 Essential (primary) hypertension; I25.10 Atherosclerotic heart disease of native coronary artery without angina pectoris; J44.9 Chronic obstructive pulmonary disease, unspecified; J69.0 Pneumonitis due to inhalation of food and vomit
CPT/HCPCS: 36415; 85025

== ENCOUNTER → 2025-07-13 11:55 | Outpatient (REF) | payer OTHER, MEDICARE, SELFPAY ==
[2025-07-13 13:00] LABS: Hematocrit 29.3 % (37.0-47.0); Hemoglobin 9.3 g/dL (12.0-16.0); Mean Corp Hgb Conc. 31.7 g/dL (33.0-37.0); Mean Corpuscular Volume 95.8 fL (81.0-99.0); Nucleated Red Blood Cells % 0 %; Platelet Count 280 10^3/uL (130-400); Red Cell Dist. Width 15.2 % (11.5-14.5)
== END ==
LOC: OLABP 11:55
PROVIDERS: ATTENDING PHYSICIAN Family Medicine
DX: D64.9 Anemia, unspecified (principal); E44.1 Mild protein-calorie malnutrition; E87.1 Hypo-osmolality and hyponatremia; F10.20 Alcohol dependence, uncomplicated; F41.9 Anxiety disorder, unspecified; I10 Essential (primary) hypertension; I25.10 Atherosclerotic heart disease of native coronary artery without angina pectoris; J44.9 Chronic obstructive pulmonary disease, unspecified; K21.9 Gastro-esophageal reflux disease without esophagitis
CPT/HCPCS: 36415; 85025

== ENCOUNTER → 2025-07-27 11:43 | Outpatient (REF) | payer OTHER, MEDICARE, SELFPAY ==
[2025-07-27 13:11] LABS: Hematocrit 25.4 % (37.0-47.0); Hemoglobin 8.2 g/dL (12.0-16.0); Mean Corp Hgb Conc. 32.3 g/dL (33.0-37.0); Mean Corpuscular Volume 94.8 fL (81.0-99.0); Nucleated Red Blood Cells % 0 %; Platelet Count 367 10^3/uL (130-400); Red Cell Dist. Width 15.2 % (11.5-14.5)
[2025-07-27 13:43] LABS: Blood Urea Nitrogen 44 mg/dl (7-17); Calcium 8.6 mg/dl (8.4-10.2); Carbon Dioxide 25 mmol/L (22-30); Chloride 105 mmol/L (98-107); Glucose 99 mg/dl (70-99); Potassium 4.5 mmol/L (3.5-5.1); Sodium 134 mmol/L (135-145); eGFR 34.05
== END ==
LOC: OLABP 11:43
PROVIDERS: ATTENDING PHYSICIAN Family Medicine
DX: I10 Essential (primary) hypertension (principal); I25.84 Coronary atherosclerosis due to calcified coronary lesion; I63.9 Cerebral infarction, unspecified; I73.89 Other specified peripheral vascular diseases; J44.9 Chronic obstructive pulmonary disease, unspecified
CPT/HCPCS: 36415; 80048; 85025

== ENCOUNTER → 2025-08-01 09:50 | Outpatient (REF) | payer OTHER, MEDICARE, SELFPAY ==
[2025-08-01 12:31] LABS: HDL Cholesterol 47 mg/dl; LDL Cholesterol, Calculated 44 mg/dl; Very Low Density Lipoprotein 13 mg/dl (0-30)
== END ==
LOC: OLABP 09:50
PROVIDERS: ATTENDING PHYSICIAN Family Medicine
DX: S62.001A Unspecified fracture of navicular [scaphoid] bone of right wrist, initial encounter for closed fracture (principal); I25.84 Coronary atherosclerosis due to calcified coronary lesion; I63.9 Cerebral infarction, unspecified; I73.89 Other specified peripheral vascular diseases; J44.9 Chronic obstructive pulmonary disease, unspecified; L89.629 Pressure ulcer of left heel, unspecified stage
CPT/HCPCS: 36415; 80061

== ENCOUNTER → 2025-08-03 12:11 | Outpatient (REF) | payer OTHER, MEDICARE, SELFPAY ==
[2025-08-03 12:39] LABS: Hematocrit 24.5 % (37.0-47.0); Hemoglobin 8.0 g/dL (12.0-16.0); Mean Corp Hgb Conc. 32.7 g/dL (33.0-37.0); Mean Corpuscular Volume 93.2 fL (81.0-99.0); Nucleated Red Blood Cells % 0 %; Platelet Count 356 10^3/uL (130-400); Red Cell Dist. Width 15.0 % (11.5-14.5)
[2025-08-03 12:43] LABS: ALT (SGPT) 19 U/L (0-35); AST (SGOT) 32 U/L (14-36); Albumin 2.6 g/dl (3.5-5.0); Alkaline Phosphatase 84 U/L (38-126); Blood Urea Nitrogen 50 mg/dl (7-17); Calcium 8.5 mg/dl (8.4-10.2); Carbon Dioxide 23 mmol/L (22-30); Chloride 104 mmol/L (98-107); Glucose 119 mg/dl (70-99); Potassium 4.7 mmol/L (3.5-5.1); Sodium 133 mmol/L (135-145); Total Protein 5.5 g/dl (6.3-8.2); eGFR 31.66
[2025-08-03 15:04] LABS: Urine Character Clear (Clear)
[2025-08-03 15:12] LABS: Urine White Cell 0-2 /HPF (0-5)
== END ==
LOC: OLABP 12:11
PROVIDERS: ATTENDING PHYSICIAN Family Medicine
DX: I10 Essential (primary) hypertension (principal); I25.84 Coronary atherosclerosis due to calcified coronary lesion; J44.9 Chronic obstructive pulmonary disease, unspecified; I73.89 Other specified peripheral vascular diseases
CPT/HCPCS: 36415; 80053; 81003; 81015; 85025

== ENCOUNTER → 2025-08-05 10:58 | Outpatient (REF) | payer OTHER, MEDICARE, SELFPAY ==
[2025-08-05 12:03] LABS: Hematocrit 24.9 % (37.0-47.0); Hemoglobin 7.8 g/dL (12.0-16.0); Mean Corp Hgb Conc. 31.3 g/dL (33.0-37.0); Mean Corpuscular Volume 92.6 fL (81.0-99.0); Nucleated Red Blood Cells % 0 %; Platelet Count 340 10^3/uL (130-400); Red Cell Dist. Width 15.2 % (11.5-14.5)
== END ==
LOC: OLABP 10:58
PROVIDERS: ATTENDING PHYSICIAN Family Medicine
DX: I10 Essential (primary) hypertension (principal); I25.84 Coronary atherosclerosis due to calcified coronary lesion; J44.9 Chronic obstructive pulmonary disease, unspecified
CPT/HCPCS: 36415; 85025

== ENCOUNTER → 2025-08-07 09:00 | Outpatient (REF) | payer MEDICARE, SELFPAY | LOC: OLABP 09:00 | PROVIDERS: ATTENDING PHYSICIAN Family Medicine | DX: I10 Essential (primary) hypertension (principal); I25.84 Coronary atherosclerosis due to calcified coronary lesion; J44.9 Chronic obstructive pulmonary disease, unspecified | CPT/HCPCS: 36415 ==

== ENCOUNTER → 2025-08-11 11:19 | Outpatient (REF) | payer OTHER, MEDICARE, SELFPAY ==
[2025-08-11 11:59] LABS: Hematocrit 24.0 % (37.0-47.0); Hemoglobin 8.0 g/dL (12.0-16.0); Mean Corp Hgb Conc. 33.3 g/dL (33.0-37.0); Mean Corpuscular Volume 88.2 fL (81.0-99.0); Nucleated Red Blood Cells % 0 %; Platelet Count 345 10^3/uL (130-400); Red Cell Dist. Width 16.0 % (11.5-14.5)
== END ==
LOC: OLABP 11:19
PROVIDERS: ATTENDING PHYSICIAN Family Medicine
DX: I10 Essential (primary) hypertension (principal); I25.84 Coronary atherosclerosis due to calcified coronary lesion; I63.9 Cerebral infarction, unspecified; I73.89 Other specified peripheral vascular diseases; J44.9 Chronic obstructive pulmonary disease, unspecified; L89.619 Pressure ulcer of right heel, unspecified stage
CPT/HCPCS: 36415; 85025

== ENCOUNTER → 2025-08-12 09:29 | Outpatient (REF) | payer OTHER, MEDICARE, SELFPAY ==
[2025-08-12 11:49] LABS: Hematocrit 27.4 % (37.0-47.0); Hemoglobin 8.8 g/dL (12.0-16.0); Mean Corp Hgb Conc. 32.1 g/dL (33.0-37.0); Mean Corpuscular Volume 89.3 fL (81.0-99.0); Platelet Count 366 10^3/uL (130-400); Red Cell Dist. Width 16.0 % (11.5-14.5)
== END ==
LOC: OLABP 09:29
PROVIDERS: ATTENDING PHYSICIAN Family Medicine
DX: I10 Essential (primary) hypertension (principal); I25.84 Coronary atherosclerosis due to calcified coronary lesion; I63.9 Cerebral infarction, unspecified; I73.89 Other specified peripheral vascular diseases; J44.9 Chronic obstructive pulmonary disease, unspecified; L89.619 Pressure ulcer of right heel, unspecified stage; L89.629 Pressure ulcer of left heel, unspecified stage; S52.501D Unspecified fracture of the lower end of right radius, subsequent encounter for closed fracture with routine healing; S52.601D Unspecified fracture of lower end of right ulna, subsequent encounter for closed fracture with routine healing
CPT/HCPCS: 36415; 85027; 86850; 86900; 86901

== ENCOUNTER 2025-08-14 14:15 | Inpatient (IN) | payer MEDICARE, SELFPAY ==
[2025-08-14] VITALS (16 sets, daily range): BP systolic 141–177; BP diastolic 58–117; BMI 18.3
[2025-08-14] MEDS: DECADRON 10 MG IV (08:27)
[2025-08-14] MEDS: DUONEB 3 ML INH ×3 (08:27→19:56)
[2025-08-14 08:36] LABS: Hematocrit 36.5 % (37.0-47.0); Hemoglobin 11.5 g/dL (12.0-16.0); Mean Corp Hgb Conc. 31.5 g/dL (33.0-37.0); Mean Corpuscular Volume 90.1 fL (81.0-99.0); Nucleated Red Blood Cells % 0 %; Platelet Count 366 10^3/uL (130-400); Red Cell Dist. Width 16.5 % (11.5-14.5)
[2025-08-14 08:53] LABS: ALT (SGPT) 34 U/L (0-35); AST (SGOT) 52 U/L (14-36); Albumin 2.8 g/dl (3.5-5.0); Alkaline Phosphatase 125 U/L (38-126); Blood Urea Nitrogen 98 mg/dl (7-17); Calcium 9.1 mg/dl (8.4-10.2); Carbon Dioxide 18 mmol/L (22-30); Chloride 113 mmol/L (98-107); Estimated Creatinine Clearance 10 ml/min; Glucose 85 mg/dl (70-99); Potassium 5.7 mmol/L (3.5-5.1); Sodium 142 mmol/L (135-145); Total Protein 6.5 g/dl (6.3-8.2); eGFR 12.87
[2025-08-14 08:57] LABS: COVID-19 Antigen Negative (Negative)
[2025-08-14 09:05] LABS: Troponin I 0.020 ng/ml
--- NOTE | 2025-08-14 09:21 | ED.GENMED ---
History of Present Illness
General
Chief Complaint: Breathing Problem
Time Seen by Provider: 08/14/25 07:55
History of Present Illness
History of Present Illness:
70-year-old female with history of COPD on 2 L of oxygen baseline, history of DVT on Xarelto, hypertension, hyperlipidemia presenting for cough and shortness of breath. Patient arrives from nursing facility, symptoms worsened last night. No report
of any recent fever. Cough has been productive and her nursing facility, patient was hypoxic. Patient does admit to some difficulty breathing on arrival, however is somewhat of a limited story and, hard of hearing. Patient sister arrived at
bedside, notes history of right sided lung masses, no active treatment. She is currently full code, however DNR discussions have been had. Patient denies chest pain. No additional history obtained at this time.
Past History
Past History
ED Past Medical History: Arrthythmia, CAD, COPD, CVA, HTN and Hypercholesterolemia
ED Past Surgical History: and Other
Social History
Tobacco: Non-smoker
Alcohol: None
Drug: None
Personal:
Living: with family
Phy Exam
Physical Exam
Physical Exam:
General: Well-appearing, no clinical signs of dehydration, nontoxic and in no acute distress
HEENT: protecting airway
Neck: appears supple
CV: Normal heart rate, regular rhythm
Resp: Tachypneic with rhonchorous respirations bilaterally, expiratory wheezing.
Abd: Soft and non-distended, no tenderness to palpation
Extremities: No deformities, no swelling, casted right upper extremity from prior fracture with some proximal dependent edema
Neuro: alert, no focal neurologic deficit
: deferred
Rectal: deferred
Psych: Normal affect
Skin: Intact
Scores
Heart Failure Risk
Heart Failure Risk Score: Not Applicable
Course
Orders/Labs/Results
Orders:
Orders
08/14/25 07:54
Electrocardiogram (*1) Urgent
Reason for Study: Shortness of Breath
CMP [Comprehensive Metabolic Panel] Urgent
Complete Blood Count/With Diff Urgent
Troponin I Urgent
08/14/25 07:55
Electrocardiogram (*1) Urgent
Reason for Study: Shortness of Breath
EKG- Treatment ONCE
Portable Chest Xray [CR Chest Portable - 1 View] Urgent
Comment:
Reason For Exam: shortness of breath
Reason Study Needs to be Portable: Patient Unstable
08/14/25 08:08
Ipratropium/Albuterol Sulfate [Duoneb] 3 ml INH R NOW ONE
08/14/25 08:09
Dexamethasone Sod Phosphate [Decadron] 20 mg .ROUTE .STK-MED ONE
Ipratropium/Albuterol Sulfate [Duoneb] 3 ml .ROUTE .STK-MED ONE
08/14/25 08:10
COVID-19 Antigen Urgent
Source: Nasal Swab
Influenza A+B Rapid Molecular Urgent
MAGAN Source: Nasal Swab
Specimen Description:
08/14/25 08:26
Dexamethasone Sod Phosphate [Decadron] 10 mg IV NOW STA
08/14/25 10:16
Aztreonam [Azactam] 2,000 mg IV NOW STA
Vancomycin 1 Gram/200 ml [Vancocin] 1 gram in 200 ml IV NOW
08/14/25 10:27
Lorazepam [Ativan] 1 mg PO NOW STA
08/14/25 10:49
Sterile Water [Sterile Water For Injection] 10 ml .ROUTE .STK-MED ONE
08/14/25 11:37
PULMONARY CONSULT Routine
Consulting Provider: Javid Diaz
Was physician already notified: Yes
Reason for consult: Large Lung Mass, COPD exacerbation, Worsened Hypoxia
08/14/25 13:16
Admit/Transfer Patient As Directed
Co-Sign Provider:
Level of Care: Inpatient admission
Assign to:: IMU- Intermediate Care
Physician / Group: Dr. Jayjay Villaseñor/Hospitalists
Diagnosis: Acute Hypoxic Respiratory Failure
Reason for Hospitalization: Acute Hypoxic Respiratory Failure
Expected length of stay greater than two midnights?: Yes
ELOS- Estimated Length of Stay in days: 4
I certify the patient meets the requirements for IP care: Yes
08/14/25 13:25
Code Status As Directed
Resuscitation Status: Do not resuscitate
Reached after discussion with pt or family/Healthcare POA: Yes
Physician note:: I confirmed with patient's son Erasmo that patient is now DNR and DNI status.
DNR Bracelet Application ONCE
Abnormal Lab Results
08/14/25
07:54
WBC 13.1 H 10^3/uL
(4.8-10.8)
RBC 4.05 L 10^6/uL
(4.20-5.40)
Hgb 11.5 L D g/dL
(12.0-16.0)
Hct 36.5 L %
(37.0-47.0)
MCHC 31.5 L g/dL
(33.0-37.0)
RDW 16.5 H %
(11.5-14.5)
Abs Immat Gran (auto) 0.1 H 10^3/uL
(0-0.05)
Absolute Neuts (auto) 11.0 H 10^3/uL
(1.4-6.5)
Absolute Monos (auto) 0.8 H 10^3/uL
(0.1-0.6)
Neutrophils % 83.8 H %
(42.2-75.2)
Lymphocytes % 9.2 L %
(20.5-51.1)
Potassium 5.7 H mmol/L
(3.5-5.1)
Chloride 113 H mmol/L
(98-107)
Carbon Dioxide 18 L mmol/L
(22-30)
BUN 98 H mg/dl
(7-17)
Creatinine 3.6 H mg/dL
(0.6-1.0)
AST 52 H U/L
(14-36)
Albumin 2.8 L g/dl
(3.5-5.0)
08/14/25 07:54
08/14/25 07:54
Vital Signs
Initial and Last Documented VS:
Initial Vital Signs
Pulse Ox
96
08/14/25 07:52
Last Documented Vital Signs
Temp Pulse Resp BP Pulse Ox
98.9 F 95 18 154/99 96
08/14/25 08:01 08/14/25 13:00 08/14/25 13:00 08/14/25 13:00 08/14/25 13:00
MDM/Problems Addressed
MDM/Problems Addressed:
70-year-old female with history of COPD on 2 L O2, DVT on Xarelto, hypertension, hyperlipidemia presenting for cough and difficulty breathing. Vital signs on arrival significant for mild hypertension, stable on supplemental O2.
On exam, patient with mild increased work of breathing, audible wheezing, rhonchi. Concern for COPD exacerbation versus pneumonia versus viral syndrome such as COVID or flu. Will start patient on DuoNeb and steroid and obtain laboratory analysis
and chest x-ray imaging. Lower suspicion for PE given patient's anticoagulation status and presenting complaints. Will continue to closely monitor
10:00- Labs significant for mild leukocytosis. Patient with chronic kidney disease and mild hyperkalemia. On reassessment, slight improvement in breathing. Chest x-ray shows worsening right lung mass which could be contributing to symptoms, as
well as possible for interstitial pneumonia. Given patient's presenting symptoms, cough, increasing O2 requirements, leukocytosis, will treat with antibiotics and plan for admission for acute pneumonia
*Pulse Oximetry
SaO2: 97
Nasal Cannula flow liters per minute: 4
Patient hypoxic: no
*EKG
Interpreted by ED Provider?: Yes
EKG Intrepretation Date: 08/14/25
EKG Intrepretation Time: 09:26
Interpretation: normal
Comparison EKG: no changes (06/06/25)
Heart Rate: 94
Rate: normal
Rhythm: sinus
[place]: normal axis
Interval: normal interval
QRS Pattern: normal QRS
Ischemia: no ischemia
*Critical Care Note
Total Time (30-74mins, 75-104mins- exclusive of procedures): Not Applicable
ED Attending Note
-
Portions of this chart may have been created with voice recognition software.� Occasional wrong word or��sound alike� substitutions may have occurred due to the inherent limitations of voice recognition software.
Discharge Plan
Departure
Patient Disposition: Admit
Date of Disposition: 08/14/25
Time of Disposition: 10:25
Presentation/result/management discussed w/ accepting MD/DO: Hospitalist
Condition: Fair
Discharge Problem:
Shortness of breath, Interstitial pneumonia
Prescriptions:
No Action
ipratropium-albuterol 0.5 mg-3 mg(2.5 mg base)/3 mL Solution For Nebulization
3 ml INHALATION R TID
pantoprazole 40 mg Tablet,Delayed Release (Dr/Ec)
40 mg PO DAILY
budesonide 0.5 mg/2 mL Suspension For Nebulization
0.5 mg INHALATION R DAILY
rosuvastatin 20 mg Tablet
20 mg PO DAILY
rivaroxaban [Xarelto] 2.5 mg Tablet
2.5 mg PO BID Qty: 90 0RF
Spiriva Respimat 1.25 mcg/actuation mist
2 puff INHALATION R DAILY
acetaminophen [Tylenol] 325 mg Tablet
650 mg PO BID
polyethylene glycol 3350 [Miralax] 17 gram Powder In Packet
17 g PO DAILY
sucralfate 100 mg/mL Suspension
1 gm PO ACHS Qty: 60 0RF
docusate sodium 100 mg Capsule
100 mg PO BID Qty: 30 0RF
nebivolol 10 mg Tablet
10 mg PO DAILY Qty: 60 0RF
nicotine 14 mg/24 hr Patch 24 Hour
14 mg transdermal DAILY Qty: 10 0RF
oxycodone 5 mg Tablet
5 mg PO Q4HPRN PRN (Reason: moderate pain) Qty: 14 0RF
lorazepam 1 mg tablet
1 mg PO HS Qty: 14 0RF
ferrous sulfate 325 mg (65 mg iron) Tablet
325 mg PO DAILY
lidocaine 5 % Adhesive Patch,Medicated
1 patch TOPICAL DAILY
Rx Instructions:
apply to R trapezius one time a day, on in am off @ HS
guanfacine 1 mg tablet
1 mg PO HS
candesartan 32 mg tablet
32 mg PO DAILY
sennosides-docusate sodium [Senna Plus] 8.6-50 mg Tablet
2 tab-cap PO HS
capsaicin 0.075 % Cream
1 applic TOPICAL TID
Rx Instructions:
apply to lower legs and feet
torsemide 5 mg Tablet
5 mg PO DAILY
tiotropium bromide 18 mcg Capsule, W/Inhalation Device
1 cap INHALATION DAILY
pregabalin [Lyrica] 75 mg capsule
75 mg PO DAILY@0800
Rx Instructions:
give with 50mg = 125mg
pregabalin [Lyrica] 75 mg capsule
150 mg PO HS
rivaroxaban [Xarelto] 2.5 mg tablet
2.5 mg PO BID
loperamide 2 mg Tablet
2 mg PO Q4H PRN (Reason: loose stools)
magnesium hydroxide [Milk of Magnesia] 400 mg/5 mL Suspension
30 ml PO DAILY PRN (Reason: constipation, give on day 4 of no BM)
bisacodyl [Dulcolax (bisacodyl)] 10 mg Suppository
10 mg OK DAILY PRN (Reason: if MOM ineffective give on day 5 of no BM)
Fleet Enema 19-7 gram/118 mL Enema
118 ml OK DAILYPRN PRN (Reason: if dulcolax ineffective give on day 6 of no BM)
naloxone [Narcan] 4 mg/actuation [place],Non-Aerosol
1 spray INTRANASAL Q3MPRN PRN (Reason: for opiod suspected overdose)
hydralazine 25 mg tablet
25 mg PO TID
pregabalin 50 mg capsule
50 mg PO DAILY@0800
Rx Instructions:
give with 75mg = 125mg
Referrals:
Brenda Machuca DO [Family Provider, General]
Interventions
Interventions:
*Risk Screen - Suicide Last Done: 08/14/25 08:01
*General Assessment Last Done: 08/14/25 08:01
*Neglect/Abuse Screening Last Done: 08/14/25 08:01
*ED- Fall Risk Assessment Last Done: 08/14/25 08:01
*ED COVID-19 Vaccine History Last Done: 08/14/25 08:01
*ED Influenza Vaccine History Last Done: 08/14/25 08:11
ED- Cardiac Assessment Last Done: 08/14/25 08:05
ED- Pulmonary Assessment Last Done: 08/14/25 08:05
Discharge Date and Time
Print Language: SWISS
[2025-08-14] MEDS: AZACTAM 2000 MG IV (10:54)
--- NOTE | 2025-08-14 10:58 | HPS.HSE ---
Family Physician
-
Family Physician: Brenda Machuca DO
Chief Complaint
-
Worsening cough and shortness of breath
History of Present Illness
70 y/o female with past medical history of chronic COPD on baseline 2 L of oxygen therapy, DVT on Xarelto for anticoagulation, hypertension on a multidrug regimen, peripheral arterial disease, status post fall with right hip fracture 06/02/2025
(status post right hip ORIF), presented with cough and shortness of breath. She was diagnosed with a lung mass ~2 months ago, and had not had outpatient follow-up for biopsy of mass. Patient was then readmitted to rehabilitation due to a second fall
injuring her right wrist. Patient recently developed increased wheezing, SOB and cough. Patient's family stated that patient had been tremulous also over the last couple weeks.
Medical History
Past Medical History
Past Medical History: Reports Other (As per HPI above and Assessment/Plan section below)
Past Surgical History: Reports and Orthopedic
Social History
Tobacco: Smoker
Alcohol: Daily
Drug: None
Family History
Family History: Other (Stroke)
Allergies / Home Medications
Allergies reflects when Allergies were last updated in [employer].
Home Medications with original date entered in [employer]
Allergy/Medication List:
Allergies
Allergy/AdvReac Type Severity Reaction Status Date / Time
amlodipine Allergy Rash Verified 08/14/25 07:53
Cephalosporins Allergy Rash Verified 08/14/25 07:53
duloxetine (From Cymbalta) Allergy Rash Verified 08/14/25 07:53
escitalopram Allergy Rash Verified 08/14/25 07:53
hydroxychloroquine (From Allergy Unknown Verified 08/14/25 07:53
Plaquenil)
Iodinated Contrast Media Allergy Rash Verified 08/14/25 07:53
penicillin V Allergy Rash Verified 08/14/25 07:53
Penicillins Allergy Rash Verified 08/14/25 07:53
prednisone Allergy Rash Verified 08/14/25 07:53
varenicline (From Chantix) Allergy nausea, Verified 08/14/25 07:53
vomiting,
diarrhea
Home Medications
budesonide 0.5 mg/2 mL suspension for nebulization 0.5 mg inhalation R DAILY 01/06/23
ipratropium 0.5 mg-albuterol 3 mg (2.5 mg base)/3 mL nebulization soln 3 ml inhalation R TID Lung/breathing issues 01/06/23
pantoprazole 40 mg tablet,delayed release 40 mg PO DAILY Gastrointestinal issue 01/06/23
rosuvastatin 20 mg tablet 20 mg PO DAILY High cholesterol 01/06/23
acetaminophen 325 mg tablet (Tylenol) 650 mg PO Q6HPRN PRN mild pain/fever 06/01/25
lorazepam 1 mg tablet 1 mg PO HS #14 tabs 06/15/25
nebivolol 10 mg tablet 10 mg PO DAILY #60 tabs 06/15/25
nicotine 14 mg/24 hr daily transdermal patch 14 mg transdermal DAILY #10 ea 06/15/25
bisacodyl 10 mg rectal suppository (Dulcolax (bisacodyl)) 10 mg FL DAILY PRN if MOM ineffective give on day 5 of no BM 08/14/25
candesartan 32 mg tablet 32 mg PO DAILY 08/14/25
capsaicin 0.075 % topical cream 1 applic topical TID 08/14/25
ferrous sulfate 325 mg (65 mg iron) tablet 325 mg PO DAILY 08/14/25
guanfacine 1 mg tablet 1 mg PO HS 08/14/25
hydralazine 25 mg tablet 25 mg PO TID 08/14/25
lidocaine 5 % topical patch 1 patch topical DAILY 08/14/25
loperamide 2 mg tablet 2 mg PO Q4H PRN loose stools 08/14/25
magnesium hydroxide 400 mg/5 mL oral suspension (Milk of Magnesia) 30 ml PO DAILY PRN constipation, give on day 4 of no BM 08/14/25
naloxone 4 mg/actuation nasal spray (Narcan) 1 spray intranasal Q3MPRN PRN for opiod suspected overdose 08/14/25
pregabalin 50 mg capsule 50 mg PO DAILY@0800 mild Pain 08/14/25
pregabalin 75 mg capsule (Lyrica) 75 mg PO DAILY@0800 08/14/25
pregabalin 75 mg capsule (Lyrica) 150 mg PO HS 08/14/25
rivaroxaban 2.5 mg tablet (Xarelto) 2.5 mg PO BID 08/14/25
sennosides 8.6 mg-docusate sodium 50 mg tablet (Senna Plus) 2 tab-cap PO HS 08/14/25
sodium phosphates 19 gram-7 gram/118 mL enema (Fleet Enema) 118 ml FL DAILYPRN PRN if dulcolax ineffective give on day 6 of no BM 08/14/25
tiotropium bromide 18 mcg capsule with inhalation device 1 cap inhalation DAILY 08/14/25
torsemide 5 mg tablet 5 mg PO DAILY 08/14/25
Review of Systems
-
Unable to obtain full review of systems at this time due to: Patient Non-verbal
Physical Exam
Vital Signs
Vital Signs
Temp Pulse Resp BP Pulse Ox
98.9 F 100 18 161/77 97
08/14/25 08:01 08/14/25 09:09 08/14/25 09:09 08/14/25 09:09 08/14/25 10:00
Physical Exam
General: Appears in Distress
HEENT: NormoCephalic
Respiratory: Wheezes and Rales
Cardiac: S1/S2 and Regular Rhythm
GI: Soft, Non Tender and Normal Bowel Sounds
Musculoskeletal: No Cyanosis and No Edema
Skin: Warm and Dry
Neuro: Tremors
Psych: Confused
Laboratory Results
-
08/14/25 07:54
08/14/25 07:54
Laboratory Results
Total Bilirubin 0.5 mg/dl (0.2-1.3) 08/14/25 07:54
AST 52 U/L (14-36) H 08/14/25 07:54
ALT 34 U/L (0-35) 08/14/25 07:54
Alkaline Phosphatase 125 U/L (38-126) 08/14/25 07:54
Troponin I 0.020 ng/ml 08/14/25 07:54
Impression/Plan
-
Assessment/Plan
Possible COPD exacerbation
Wheezing
Intermittent shortness of breath, presently she denies
Mild interstitial changes on chest x-ray
Right upper lobe mass-large right upper lobe new since 2022
-Chest x-ray with persistent right lung mass and there are mild interstitial changes
-Continue steroids, Azithromycin, Rocephin (pharmacy verified that it is actually to give patient Cephalosporins)
-Scheduled Duonebs
-Monitor in IMU
Right upper lobe mass new since 2022
-Patient does not want chemotherapy
-Biopsy is not an option at this time, consider resuming Xarelto
Right proximal femoral neck fracture secondary to mechanical trauma and osteoporosis in May 2025
Aspiration syndrome secondary to esophageal food impaction
-Status post post EGD on 06/06 with findings of a large amount of food debris in the entire esophagus removed. Grade D esophagitis throughout the esophagus due to food impaction/erosion. Mild Schatzki ring.
-Esophagogram in June 2025 showed possible but no definitive achalasia
-Speech evaluation, if speech clears then follow diet as recommended by GI last admission
Tobacco use disorder
- Encourage smoking cessation
- Offer Nicotine patch as needed
Chronic hyponatremia.
Essential hypertension
-continue candesartan, beta-jackeline, oral hydralazine - titrated as possible for goal normotension
CAD/PAD.
Right-sided carotid bruit history PAD/CAD
- Recent carotid ultrasound noted with coronary artery disease close of 50 to 69% on the left and close to 50% on the right.
- Follow-up with vascular
PAD s/p Right Iliac Stent and Right Femoral Endarterectomy
HLD
- Continue statin, aspirin/Xarelto.
- repeat arterial US in June 2025 hospitalization consistent with op 05/17/25.
Neuropathy
GERD
-Continue PPI
Anxiety/depression/insomnia
-Continue Lorazepam
Alcohol use disorder without evidence of withdrawal
-Monitor for alcohol withdrawal
Cognitive impairment
-reported by sister for the past year
-has had staring episodes in the past several months
-Recommend outpatient MRI brain and neuropsychological testing. Definitely would need MRI imaging of the brain with the newfound right upper lobe mass
History of Constipation
Protein calorie malnutrition
Recent back pain
- suspect from immobility and bed position
- Lumbar Xray
- Lidocaine patches
DVT Prophylaxis: Although patient is on Xarelto, unable to take it at this time, unknown how reliably has been taking it. Prior to placing SCDs, check lower extremity ultrasound for any DVT.
Code Status: DNR/DNI (Patient's son Erasmo clearly stated patient should be DNR/DNI going forward)
[2025-08-14] MEDS: ATIVAN 1 MG PO (10:59)
[2025-08-14] MEDS: VANCOCIN 200 IV (11:57)
--- NOTE | 2025-08-14 14:00 | PHA.VAN.IN ---
Assessment
- Assessment
Renal Function: SCR Appears Elevated from baseline
Concomitant Antimicrobials: meropenem, azithromycin
Plan
- Plan
Initial / Loading Dose: 1000mg
Maintenance Regimen: prn by level
Monitoring: random 113 in am
MRSA Screen: Ordered per protocol
Pharmacokinetics Vancomycin I
- -
Patient Age: 70
Patient Sex: Female
Vancomycin Day #: 1
Indication: Pulmonary/Respiratory
Requesting Provider: Dr. Villaseñor
Pertinent Antimicrobial Allergies:
cephalosporins=rash
pcns=rash
penicillin v=rash
Height / Weight:
Height 5 ft
Actual Weight 43 kg
IBW in k.5
- Vital Signs / Lab Results
Temp Pulse Resp BP Pulse Ox
98.9 F 95 18 154/99 96
08/14/25 08:01 08/14/25 13:00 08/14/25 13:00 08/14/25 13:00 08/14/25 13:00
Lab Results - Hematology
08/14/25
07:54
WBC 13.1 H
Lab Results - Chemistry
08/14/25
07:54
BUN 98 H
Creatinine 3.6 H
Estimated Creat Clear 10
Albumin 2.8 L
Microbiology Results
08/14/25 08:10 Influenza Types A & B (LUAN) - Final
Nasal Swab Negative for Influenza A & B, NAAT
Negative results must be combined with clinical observations
and patient history.
Nucleic Acid Amplification test (NAAT)performed on the
[employer] platform.
--- NOTE | 2025-08-14 14:46 | W.CON.NEPH ---
Consultation
-
Date/Time Consultation Requested: 08/14/25 2 PM
Date/Time Consultation Performed: 08/14/25 2 PM
Requesting Provider: Dr. Villaseñor
Performing Provider: Dr. Bertrand
Reason for Consultation: FILIBERTO
Medical History
-
Chief Complaint: FILIBERTO
History of Present Illness:
This is a 70-year-old female who resides at [facility] who has chronic COPD on baseline 2 L of oxygen therapy, DVT on Xarelto for anticoagulation, hypertension on a multidrug regimen which has been stable. She also has hyperlipidemia controlled with
statin therapy. She was sent in because of worsening cough and shortness of breath. Reportedly the cough has been productive and the patient was noted to be hypoxic at [facility]. There is also history of a right sided lung mass which is quite
large but no treatment is given for that. On admission she was noted to have acute kidney injury with a creatinine of 3.6. Her baseline is 1.7 which is stage IIIb CKD. She was also noted to have hyperkalemia with 5.7 as well as metabolic
acidosis. Adams catheter was placed in the ER with at least 800 cc out.
Past Medical History
alcohol abuse
nicotine abuse right iliac stent
right femoral endarterectomy
History TIA
HTN
HLD
COPD
GERD
nicotine abuse
anxiety
depression
insomnia
chronic hyponatremia
constipation
right iliac stent
section
Angioplasty 1994
Ovarian cyst removal 1970
Colonoscopy
Bilateral cataract extraction with lens implants
Social History
Tobacco: Smoker
Alcohol: Daily
Family History
Family History: Not Pertinent
Allergies / Home Medications
Allergy/AdvReac Type Severity Reaction Status Date / Time
amlodipine Allergy Rash Verified 08/14/25 07:53
Cephalosporins Allergy Rash Verified 08/14/25 07:53
duloxetine (From Cymbalta) Allergy Rash Verified 08/14/25 07:53
escitalopram Allergy Rash Verified 08/14/25 07:53
hydroxychloroquine (From Allergy Unknown Verified 08/14/25 07:53
Plaquenil)
Iodinated Contrast Media Allergy Rash Verified 08/14/25 07:53
penicillin V Allergy Rash Verified 08/14/25 07:53
Penicillins Allergy Rash Verified 08/14/25 07:53
prednisone Allergy Rash Verified 08/14/25 07:53
varenicline (From Chantix) Allergy nausea, Verified 08/14/25 07:53
vomiting,
diarrhea
�Medication �Instructions �Recorded �Confirmed �Type
budesonide 0.5 mg/2 mL suspension 0.5 mg inhalation R DAILY 01/06/23 08/14/25 History
for nebulization
ipratropium 0.5 mg-albuterol 3 mg 3 ml inhalation R TID 01/06/23 08/14/25 History
(2.5 mg base)/3 mL nebulization Lung/breathing issues
soln
pantoprazole 40 mg tablet,delayed 40 mg PO DAILY Gastrointestinal 01/06/23 08/14/25 History
release issue
rosuvastatin 20 mg tablet 20 mg PO DAILY High cholesterol 01/06/23 08/14/25 History
acetaminophen 325 mg tablet 650 mg PO Q6HPRN PRN mild 06/01/25 08/14/25 History
(Tylenol) pain/fever
lorazepam 1 mg tablet 1 mg PO HS #14 tabs 06/15/25 08/14/25 Rx
nebivolol 10 mg tablet 10 mg PO DAILY #60 tabs 06/15/25 08/14/25 Rx
nicotine 14 mg/24 hr daily 14 mg transdermal DAILY #10 ea 06/15/25 08/14/25 Rx
transdermal patch
bisacodyl 10 mg rectal suppository 10 mg AR DAILY PRN if MOM 08/14/25 08/14/25 History
(Dulcolax (bisacodyl)) ineffective give on day 5 of no BM
candesartan 32 mg tablet 32 mg PO DAILY 08/14/25 08/14/25 History
capsaicin 0.075 % topical cream 1 applic topical TID 08/14/25 08/14/25 History
ferrous sulfate 325 mg (65 mg 325 mg PO DAILY 08/14/25 08/14/25 History
iron) tablet
guanfacine 1 mg tablet 1 mg PO HS 08/14/25 08/14/25 History
hydralazine 25 mg tablet 25 mg PO TID 08/14/25 08/14/25 History
lidocaine 5 % topical patch 1 patch topical DAILY 08/14/25 08/14/25 History
loperamide 2 mg tablet 2 mg PO Q4H PRN loose stools 08/14/25 08/14/25 History
magnesium hydroxide 400 mg/5 mL 30 ml PO DAILY PRN constipation, 08/14/25 08/14/25 History
oral suspension (Milk of Magnesia) give on day 4 of no BM
naloxone 4 mg/actuation nasal 1 spray intranasal Q3MPRN PRN for 08/14/25 08/14/25 History
spray (Narcan) opiod suspected overdose
pregabalin 50 mg capsule 50 mg PO DAILY@0800 mild Pain 08/14/25 08/14/25 History
pregabalin 75 mg capsule (Lyrica) 75 mg PO DAILY@0800 08/14/25 08/14/25 History
pregabalin 75 mg capsule (Lyrica) 150 mg PO HS 08/14/25 08/14/25 History
rivaroxaban 2.5 mg tablet (Xarelto) 2.5 mg PO BID 08/14/25 08/14/25 History
sennosides 8.6 mg-docusate sodium 2 tab-cap PO HS 08/14/25 08/14/25 History
50 mg tablet (Senna Plus)
sodium phosphates 19 gram-7 118 ml AR DAILYPRN PRN if dulcolax 08/14/25 08/14/25 History
gram/118 mL enema (Fleet Enema) ineffective give on day 6 of no BM
tiotropium bromide 18 mcg capsule 1 cap inhalation DAILY 08/14/25 08/14/25 History
with inhalation device
torsemide 5 mg tablet 5 mg PO DAILY 08/14/25 08/14/25 History
Review of Systems
-
Patient was lethargic
All other systems: Negative unless noted
Physical Exam
Vital Signs
Vital Signs
Temp Pulse Resp BP Pulse Ox
98.9 F 91 15 141/58 97
08/14/25 08:01 08/14/25 14:00 08/14/25 14:00 08/14/25 14:00 08/14/25 14:00
Lab Results
WBC 13.1 10^3/uL (4.8-10.8) H 08/14/25 07:54
RBC 4.05 10^6/uL (4.20-5.40) L 08/14/25 07:54
Hgb 11.5 g/dL (12.0-16.0) L D 08/14/25 07:54
Hct 36.5 % (37.0-47.0) L 08/14/25 07:54
Plt Count 366 10^3/uL (130-400) 08/14/25 07:54
eGFR 12.87 08/14/25 07:54
Albumin 2.8 g/dl (3.5-5.0) L 08/14/25 07:54
Laboratory Tests
08/03/25 08/12/25
06:20 06:00
Hgb 8.8 L
Sodium 133 L
Potassium 4.7
Creatinine 1.7 H
Albumin 2.6 L
Physical Exam
Patient is in no distress. Pupils are equal round and reactive to light, extraocular movements are intact, sclera were anicteric. Ears and nose are intact. Oropharynx was dry. Neck was supple with trachea midline and no thyromegaly. Heart was
regular rate and rhythm without rubs. Lower extremities without edema. Lungs were clear to auscultation bilaterally and with normal excursion. Abdomen was soft, nontender, with normal active bowel sounds, and no hepatosplenomegaly. Skin was without
rash and with normal turgor.
Data Reviewed
-
Radiology: Image Personally Visualized and interpreted (Chest x-ray 08/14/25 by my reading right upper lung mass, vascular prominence, increased interstitial markings)
Medical Tests (Nuc Med, Echo etc): Image Personally Visualized and interpreted (EKG 08/14/25 by my reading shows normal sinus rhythm)
Labs: Labs Reviewed by me
Old Records: Reviewed
Assessment/Plan
-
Assessment
FILIBERTO
CKD 3B, 1.7 baseline
Hypertension
Hyperkalemia
Metabolic acidosis
COPD on chronic oxygen 2 L
DVT on Xarelto
Right upper lobe lung mass
Urinary retention
Plan
Empiric antibiotics per primary team
IV fluids with saline
Maintain Adams catheter
Repeat BMP later to follow potassium level, treat medically if needed
I suspect FILIBERTO is primarily related to urinary retention though there may be a component of sepsis
[2025-08-14 14:53] LABS: Urine Character Clear (Clear)
--- NOTE | 2025-08-14 15:00 | CON.PUL ---
Consultation
Consultation Request
Date/Time Consultation Requested: 08/14
Date/Time Consultation Performed: 08/14
Reason for Consultation: abnormal imaging
Medical History
-
History of Present Illness:
History obtained from patient, multiple family members, inpatient and outpatient records. Patient is a 70-year-old female with complex history including COPD, peripheral arterial disease who is status post fall with right hip fracture 06/02/2025.
She underwent right hip ORIF without complication. She was noted to have a right lung mass at that time. Unfortunately, since discharge she has been at rehabilitation and then readmitted to rehabilitation due to a second fall injuring her right
arm. Her inability to follow-up due to rehab stay has delayed her lung mass workup. In the interim she has also deteriorated, more deconditioned. She is brought to [facility] today because of increased wheezing. Family states that she
has been tremulous also over the last couple weeks. There is no clear history of nausea, chest pain. Patient denies any shortness of breath. We are asked to comment on her pulmonary process
.
PMH: Hypertension, hyperlipidemia, COPD, peripheral arterial disease with right femoral endarterectomy 2022, renal insufficiency, severe aortic regurgitation, chronic hyponatremia, history of falls with mechanical fracture right femoral neck, GERD,
neuropathy
Past Medical History
Past Medical History: None (See above)
Past Surgical History: None (See above) and Orthopedic
Social History
Tobacco: Smoker ([id number], 15 cigarettes a day)
Alcohol: Daily (16 ounces of wine a day, less than since being in rehabilitation)
Drug: None
Personal: Single
Living: Alone (More recently has been at [facility] after multiple falls)
Employment: Not Employed
Family History
Family History: Other (Mother with history of stroke. 1 son who is healthy. 1 sister who is healthy)
Allergies / Home Medications
Allergies
Allergy/AdvReac Type Severity Reaction Status Date / Time
amlodipine Allergy Rash Verified 08/14/25 07:53
Cephalosporins Allergy Rash Verified 08/14/25 07:53
duloxetine (From Cymbalta) Allergy Rash Verified 08/14/25 07:53
escitalopram Allergy Rash Verified 08/14/25 07:53
hydroxychloroquine (From Allergy Unknown Verified 08/14/25 07:53
Plaquenil)
Iodinated Contrast Media Allergy Rash Verified 08/14/25 07:53
penicillin V Allergy Rash Verified 08/14/25 07:53
Penicillins Allergy Rash Verified 08/14/25 07:53
prednisone Allergy Rash Verified 08/14/25 07:53
varenicline (From Chantix) Allergy nausea, Verified 08/14/25 07:53
vomiting,
diarrhea
Home Medications
�Medication �Instructions �Recorded �Confirmed �Last Taken �Type
budesonide 0.5 mg/2 mL suspension 0.5 mg inhalation R DAILY 01/06/23 08/14/25 08/13/25 History
for nebulization
ipratropium 0.5 mg-albuterol 3 mg 3 ml inhalation R TID 01/06/23 08/14/25 08/13/25 History
(2.5 mg base)/3 mL nebulization Lung/breathing issues
soln
pantoprazole 40 mg tablet,delayed 40 mg PO DAILY Gastrointestinal 01/06/23 08/14/25 08/13/25 History
release issue
rosuvastatin 20 mg tablet 20 mg PO DAILY High cholesterol 01/06/23 08/14/25 08/13/25 History
acetaminophen 325 mg tablet 650 mg PO Q6HPRN PRN mild 06/01/25 08/14/25 06/01/25 History
(Tylenol) pain/fever
lorazepam 1 mg tablet 1 mg PO HS #14 tabs 06/15/25 08/14/25 08/13/25 Rx
nebivolol 10 mg tablet 10 mg PO DAILY #60 tabs 06/15/25 08/14/25 08/13/25 Rx
nicotine 14 mg/24 hr daily 14 mg transdermal DAILY #10 ea 0908/14/25 08/13/25 Rx
transdermal patch
bisacodyl 10 mg rectal suppository 10 mg NH DAILY PRN if MOM 08/14/25 08/14/25 Unknown History
(Dulcolax (bisacodyl)) ineffective give on day 5 of no BM
candesartan 32 mg tablet 32 mg PO DAILY 08/14/25 08/14/25 08/13/25 History
capsaicin 0.075 % topical cream 1 applic topical TID 08/14/25 08/14/25 08/14/25 History
ferrous sulfate 325 mg (65 mg 325 mg PO DAILY 08/14/25 08/14/25 08/13/25 History
iron) tablet
guanfacine 1 mg tablet 1 mg PO HS 08/14/25 08/14/25 08/13/25 History
hydralazine 25 mg tablet 25 mg PO TID 08/14/25 08/14/25 08/14/25 History
lidocaine 5 % topical patch 1 patch topical DAILY 08/14/25 08/14/25 08/13/25 History
loperamide 2 mg tablet 2 mg PO Q4H PRN loose stools 08/14/25 08/14/25 Unknown History
magnesium hydroxide 400 mg/5 mL 30 ml PO DAILY PRN constipation, 08/14/25 08/14/25 Unknown History
oral suspension (Milk of Magnesia) give on day 4 of no BM
naloxone 4 mg/actuation nasal 1 spray intranasal Q3MPRN PRN for 08/14/25 08/14/25 Unknown History
spray (Narcan) opiod suspected overdose
pregabalin 50 mg capsule 50 mg PO DAILY@0800 mild Pain 08/14/25 08/14/25 08/13/25 History
pregabalin 75 mg capsule (Lyrica) 75 mg PO DAILY@0800 08/14/25 08/14/25 08/13/25 History
pregabalin 75 mg capsule (Lyrica) 150 mg PO HS 08/14/25 08/14/25 08/13/25 History
rivaroxaban 2.5 mg tablet (Xarelto) 2.5 mg PO BID 08/14/25 08/14/25 08/13/25 History
sennosides 8.6 mg-docusate sodium 2 tab-cap PO HS 08/14/25 08/14/25 08/13/25 History
50 mg tablet (Senna Plus)
sodium phosphates 19 gram-7 118 ml NH DAILYPRN PRN if dulcolax 08/14/25 08/14/25 Unknown History
gram/118 mL enema (Fleet Enema) ineffective give on day 6 of no BM
tiotropium bromide 18 mcg capsule 1 cap inhalation DAILY 08/14/25 08/14/25 08/13/25 History
with inhalation device
torsemide 5 mg tablet 5 mg PO DAILY 08/14/25 08/14/25 08/13/25 History
Review of Systems
-
All other systems: Negative unless noted
Vitals / Labs / Diagnostic Testing
Vital Signs
Temp Pulse Resp BP Pulse Ox
98.9 F 91 15 141/58 97
08/14/25 08:01 08/14/25 14:00 08/14/25 14:00 08/14/25 14:00 08/14/25 14:00
Lab Data
08/14/25 07:54
Microbiology
08/14/25 08:10 Nasal Swab Influenza Types A & B (LUAN) - Final
Negative for Influenza A & B, NAAT
Negative results must be combined with clinical observations
and patient history.
Nucleic Acid Amplification test (NAAT)performed on the
HSTYLE platform.
Diagnostic Testing:
Physical Exam
-
HEENT: Normocephalic and Other (Cachectic)
Cardiovascular: S1/S2, Regular Rhythm, Murmur (2/6 systolic murmur), Peripheral Edema (n) and Other (Right upper extremity cast)
Respiratory: Wheeze (Scattered), Rales (n), Rhonchi (n) and Non-Labored Respirations
GI: Soft, Non Distended and Non Tender
Neurology: Awake, Alert and No Motor Deficits (Generally weak, moves all extremities)
Skin: Other (Mild pallor)
General: Comfortable (Mild tremulous)
Assessment
-
70-year-old smoking female with history of COPD, PAD on Xarelto status post right iliac stent, hypertension, hyperlipidemia, reflux, anxiety and depression status post right hip ORIF May 14, 2025 at which time she was noted to have a right lung
mass. Due to prolonged rehabilitation stent and readmission with falls, she has not been able to follow-up. She now presents with increased wheeze and abnormal chest x-ray
Wheezing
Intermittent shortness of breath, presently she denies
Mild interstitial changes on chest x-ray
Prolonged rehabilitation stay since June 2025, [facility]
Status post right hip fracture with ORIF
Status post fall with right arm fracture, cast in place
Suspected aspiration syndrome
Mild leukocytosis
Hyperkalemia
Renal insufficiency acute, creatinine 3.6
1.7 on 08/03
Conditions present prior to admission
Right upper lobe mass-large right upper lobe new since 2022
Tobacco abuse
Chronic hyponatremia due to alcohol use-serum sodium 130
Moderate to severe aortic regurgitation
Protein calorie malnutrition
Peripheral arterial disease
02/25/2023-right femoral endarterectomy with bovine patch angioplasty, right iliac angioplasty/stent and lithotripsy
COPD.
Cigarette smoker ongoing
[id number]
Hypertension/Hyperlipidemia.
CAD.
PSVT.
Neuropathy.
GERD.
Anxiety/depression.
Deconditioned
Plan/recommendations
At this time, patient is denying any pulmonary symptoms
However she is mildly wheezing
She also has an occasional cough
Chest x-ray with persistent right lung mass
There are mild interstitial changes
She describes aspiration syndrome which is confirmed by her sister who is at the bedside
Moving forward
Not convinced that this is an infectious process although she is likely aspiration risk
She is at risk for having a mild COPD exacerbation
Agree with steroids, azithromycin
Not sure that meropenem and vancomycin are indicated but this will be deferred to primary service
Vish [id number]
We reviewed at length her right upper lobe mass with patient and multiple family members
She has clearly deteriorated over the last 2 months since her hip in May
She is deconditioned and has had multiple falls since now with a right upper extremity fracture
When asked about chemotherapy Treatment for cancer, she stated that she would not pursue this
When asked about advanced directives by her sister, she initially stated she would not want mechanical ventilation, 'life support'
Son who was at the bedside who would be her power of litigation attorney associate if patient is unable to provide information, also stated that she would not want to be on life support
For now continue with current treatment regimen
Aspiration precautions
Patient was on Xarelto in the past, 2.5 mg twice a day
This has not been reordered by primary service
Would consider reordering, as biopsy is not an option at this time
DVT prophylaxis-Xarelto 2.5 mg twice a day. This should resume
GI prophylaxis-added pantoprazole while on steroids
Reviewed with patient, son, sister and other family members at the bedside
Reviewed with primary service
Diagnostic data:
CXR 08/14/2025: Right upper lobe mass persistent, mild interstitial changes
Chest x-ray 01/20/23-COPD changes, no acute radiographic abnormalities
Chest x-ray 06/02/2025-new large right upper lobe pulmonary mass
Echocardiogram 06/02/2025-EF 60-65%, aortic sclerosis without stenosis, moderate to severe aortic regurgitation
[2025-08-14 15:27] LABS: Urine Red Blood Cell 0-2 /HPF (0-2); Urine White Cell 0-2 /HPF (0-5)
[2025-08-14] MEDS: NSS 1000 IV ×2 (15:56→19:56)
[2025-08-14] MEDS: MERREM 500 MG IV (16:17)
[2025-08-14 16:23] LABS: Troponin I 0.019 ng/ml
--- NOTE | 2025-08-14 16:30 | EDCM ---
CM reviewed chart, attempted to meet with pt but she was sleeping. Information obtained from RN and chart review.
Pt currently resides at [facility] for STR. Pt fell in May and fractured her R hip, had surgical repair and went to [place] for STR.
Pt has had multiple recent falls now with R wrist fracture, currently in cast, returned to [place] for additional STR 06/2025.
Pt also has recently diagnosed lung mass but is declining workup at this time.
Prior to hip fracture pt lived alone in 2 story home, 2 [address]. Pt was independent in ambulation with RW.
Pt's son lives locally and provides support along with other family members.
Pt with recent use of O2 2L NC at [facility]. Also has nebulizer.
PCP: Brenda Machuca at [place]
Pharmacy: [facility] in [place] ([place])
CM will continue to follow for all discharge planning needs.
[2025-08-14] MEDS: ZITHROMAX INFUSION 250 IV (16:53)
--- NOTE | 2025-08-14 18:50 | PTCARENOTE ---
Received patient from ED by stretcher. Patient staring at ceiling for most of assessment. PERRLA @ 2. Oriented x self, tremoring, T99.1. 3L NC, sats 98%. Restless, slow to answer, using 1-2 word answers. Mouth dry causing mumbling. 1 inc BM on
arrival. RUE +2 pitting edema around cast, +pulses +cap refill. NSR on monitor. Unable to complete admission questions d/t patient mental status. Bed alarm on for safety. Heel wounds elevated and wounds dressed. WOCN consulted. Will closely monitor.
[2025-08-14] MEDS: PULMICORT 0.5 MG INH (19:56)
[2025-08-14 22:03] LABS: Ammonia < 9 umol/L (9-30)
[2025-08-14 22:11] LABS: Blood Urea Nitrogen 91 mg/dl (7-17); Carbon Dioxide 16 mmol/L (22-30); Chloride 114 mmol/L (98-107); Estimated Creatinine Clearance 11 ml/min; Potassium 5.9 mmol/L (3.5-5.1); Sodium 138 mmol/L (135-145); eGFR 15.40
[2025-08-14 22:16] LABS: Troponin I 0.024 ng/ml
[2025-08-14 22:22] LABS: Calcium 9.2 mg/dl (8.4-10.2); Glucose 122 mg/dl (70-99)
[2025-08-14] MEDS: DEXTROSE 50% SYRINGE 25 GRAMS IV (23:04)
[2025-08-14] MEDS: NOVOLIN R 0.1 UNITS IV (23:04)
[2025-08-14 23:15] LABS: Glucose - Point of Care 118 mg/dl (70-99)
[2025-08-15] VITALS: BP 158/74
[2025-08-15 00:30] LABS: Glucose - Point of Care 125 mg/dl (70-99)
[2025-08-15 01:50] LABS: Glucose - Point of Care 93 mg/dl (70-99)
[2025-08-15 03:30] LABS: Hematocrit 34.2 % (37.0-47.0); Hemoglobin 10.7 g/dL (12.0-16.0); Mean Corp Hgb Conc. 31.3 g/dL (33.0-37.0); Mean Corpuscular Volume 91.0 fL (81.0-99.0); Platelet Count 371 10^3/uL (130-400); Red Cell Dist. Width 16.4 % (11.5-14.5)
[2025-08-15 03:44] LABS: Potassium 5.3 mmol/L (3.5-5.1)
[2025-08-15 03:48] LABS: ALT (SGPT) 28 U/L (0-35); AST (SGOT) 37 U/L (14-36); Albumin 2.8 g/dl (3.5-5.0); Alkaline Phosphatase 123 U/L (38-126); Blood Urea Nitrogen 85 mg/dl (7-17); Calcium 9.5 mg/dl (8.4-10.2); Carbon Dioxide 18 mmol/L (22-30); Chloride 117 mmol/L (98-107); Estimated Creatinine Clearance 11 ml/min; Glucose 87 mg/dl (70-99); Magnesium 1.9 mg/dl (1.6-2.3); Potassium 5.2 mmol/L (3.5-5.1); Sodium 145 mmol/L (135-145); Total Protein 6.3 g/dl (6.3-8.2); eGFR 15.40
--- NOTE | 2025-08-15 03:58 | PTCARENOTE ---
Addendum entered by Zhane Laguna RN 08/15/25 04:03:
Patient unable to take PO meds due to mental status.
Original Note:
Assumed care at 1900. Patient tremulous with jerking movements but afebrile. See worklist for nursing assessment details. IVF started. K noted to be 5.9. house calls nurse provider made aware and ordered hyperkalemia protocol. K rechecked and 5.2.
[2025-08-15 03:59] LABS: Troponin I 0.022 ng/ml
[2025-08-15 04:00] VITALS: BP 150/46
[2025-08-15 06:00] VITALS: BP 154/68
[2025-08-15 06:03] LABS: Glucose - Point of Care 93 mg/dl (70-99)
[2025-08-15] MEDS: PULMICORT 0.5 MG INH (07:10)
[2025-08-15] MEDS: DUONEB 3 ML INH ×2 (07:10→11:48)
--- NOTE | 2025-08-15 07:19 | W.PN.HOSP.TC ---
Today's Communication/Plan
-
Discharge to hospice
Assessment / Plan
Assessment / Plan
Physical Exam
General: Appears in Distress
HEENT: Normocephalic
Respiratory: Wheezes and Rales
Cardiac: S1/S2 and Regular Rhythm
GI: Soft, Non Tender and Normal Bowel Sounds
Musculoskeletal: No Cyanosis and No Edema
Skin: Warm and Dry
Neuro: Tremors
Psych: Confused
Assessment/Plan
Possible COPD exacerbation
Wheezing
Intermittent shortness of breath, presently she denies
Mild interstitial changes on chest x-ray
Right upper lobe mass-large right upper lobe new since 2022
Right upper lobe mass new since 2022
Right proximal femoral neck fracture secondary to mechanical trauma and osteoporosis in May 2025
Aspiration syndrome secondary to esophageal food impaction
Tobacco use disorder
Chronic hyponatremia
Essential hypertension
CAD/PAD
Right-sided carotid bruit history PAD/CAD
PAD s/p Right Iliac Stent and Right Femoral Endarterectomy
HLD
Neuropathy
GERD
Anxiety/depression/insomnia
Alcohol use disorder without evidence of withdrawal
Cognitive impairment
History of Constipation
Protein calorie malnutrition
Recent back pain
-I spoke to patient's son Erasmo, and he has consented and agreed to start hospice.
-Discharge to hospice.
More than 30 minutes spent in discharge including
Final examination of the patient
Summarizing hospital stay
Instructions for continuing care to all relevant caregivers
Preparation of discharge records, prescriptions, and referral forms
Total time spent (in minutes): 38
Anticipated Discharge: > 48 hours
Subjective/Interval History
-
Date of Service: August 15, 2025
Patient was seen and examined. She appeared restless and shaky.
Objective Data
-
Labs:
Laboratory Results
08/14/25 08/15/25 08/15/25
21:47 03:13 03:13
WBC 15.4 H
Hgb 10.7 L
Hct 34.2 L
Plt Count 371
Sodium 138 145
Potassium 5.9 H 5.3 H 5.2 H
Chloride 114 H 117 H
Carbon Dioxide 16 L 18 L
BUN 91 H 85 H
Creatinine 3.1 H 3.1 H
Glucose 122 H 87
Calcium 9.2 9.5
Total Bilirubin 0.5
AST 37 H
ALT 28
Alkaline Phosphatase 123
Vital Signs:
Vital Signs
Temp Pulse Resp BP Pulse Ox
98.3 F 104 24 154/68 95
08/15/25 03:31 08/15/25 07:12 08/15/25 07:12 08/15/25 06:00 08/15/25 07:12
I&O
08/14/25 08/15/25 08/16/25
05:59 06:59 06:59
Intake Total 1969 / 1969
Output Total 1675 / 1675
Balance 295 / 295
[2025-08-15 08:00] VITALS: BP 135/70
[2025-08-15] MEDS: SOLU-MEDROL PF 40 MG IV (10:12)
[2025-08-15] MEDS: NICODERM TRANSDERMAL 14 MG TRANSDERM (10:14)
--- NOTE | 2025-08-15 10:20 | W.PN.PUL3 ---
Today's Communication / Plan
-
Continue IV Solu-Medrol
Nebulizer therapy
Follow cultures
Follow mental status-at risk for delirium given worsening renal function.
Continue oxygen therapy
Aspiration precautions
Nutritional support
Poor prognosis
Assessment
-
70-year-old smoking female with history of COPD, PAD on Xarelto status post right iliac stent, hypertension, hyperlipidemia, reflux, anxiety and depression status post right hip ORIF May 14, 2025 at which time she was noted to have a right lung
mass. Due to prolonged rehabilitation stent and readmission with falls, she has not been able to follow-up. She now presents with increased wheeze and abnormal chest x-ray
Wheezing
Intermittent shortness of breath, presently she denies
Mild interstitial changes on chest x-ray
Prolonged rehabilitation stay since June 2025, [place] [facility]
Status post right hip fracture with ORIF
Status post fall with right arm fracture, cast in place
Suspected aspiration syndrome
Mild leukocytosis
Hyperkalemia
Renal insufficiency acute, creatinine 3.6
1.7 on 08/03
Conditions present prior to admission
Right upper lobe mass-large right upper lobe new since 2022
Tobacco abuse
Chronic hyponatremia due to alcohol use-serum sodium 130
Moderate to severe aortic regurgitation
Protein calorie malnutrition
Peripheral arterial disease
02/25/2023-right femoral endarterectomy with bovine patch angioplasty, right iliac angioplasty/stent and lithotripsy
COPD.
Cigarette smoker ongoing
[id number]
Hypertension/Hyperlipidemia.
Chronic kidney disease
CAD.
PSVT.
Neuropathy.
GERD.
Anxiety/depression.
Deconditioned
Plan/recommendations
-
Mildly bronchospastic on exam with occasional coughing.
No significant phlegm production.
Currently on 3 L nasal cannula.
-
Chest x-ray with persistent right lung mass
There are mild interstitial changes
She describes aspiration syndrome which is confirmed by her sister who is at the bedside
-
Not convinced that this is an infectious process although she is likely aspiration risk
Perhaps mild acute exacerbation of COPD component triggered by aspiration.
Agree with steroids-IV Solu-Medrol
Continue nebulizer therapy with Pulmicort and DuoNebs [id number]
hold Spiriva while on [id number] nebulizers.
continue with secretion clearance interventions.
-
Possible aspiration pneumonitis/pneumonia:
Afebrile
Leukocytosis noted
Microbiology so far negative.
azithromycin/ceftriaxone
Not sure that meropenem and vancomycin are indicated but this will be deferred to primary service.
-
Significant component of deconditioning/Muscle mass loss.
She has been in rehabilitation for some time.
-
Dr. Diaz reviewed at length her right upper lobe mass with patient and multiple family members.
She has clearly deteriorated over the last 2 months since her hip in May
She is deconditioned and has had multiple falls since now with a right upper extremity fracture
When asked about chemotherapy Treatment for cancer, she stated that she would not pursue this-- Hold off on any biopsy for now.
Can readdress if physical condition improves.
-
Mental status not completely normal: Suspect toxic metabolic encephalopathy.
She will follow commands. Not oriented.
Moving 4 extremities
Restless
Suspect delirium component
Agree with intermittent narcotics for increased work of breathing.
Acute on chronic kidney disease, metabolic acidosis.
Management per primary team.
IV fluids
Monitor for volume overload
DNR status instituted this admission.
Nicotine replacement therapy-continues
-
DVT prophylaxis-Xarelto 2.5 mg twice a day.
GI prophylaxis-added pantoprazole while on steroids
Reviewed with patient, son, sister and other family members at the bedside
Dr. Stanley reviewed with primary service 08/15/2025.
Poor prognosis.
-
Hospice will be consulted.
Diagnostic data:
CXR 08/14/2025: Right upper lobe mass persistent, mild interstitial changes
Chest x-ray 01/20/23-COPD changes, no acute radiographic abnormalities
Chest x-ray 06/02/2025-new large right upper lobe pulmonary mass
Echocardiogram 06/02/2025-EF 60-65%, aortic sclerosis without stenosis, moderate to severe aortic regurgitation
Subjective Data
-
Date of Service:
Date of Service: August 15, 2025
Chief Complaint: Pulmonary Follow Up (Hypoxemic respiratory insufficiency/possible aspiration pneumonitis/lung mass)
Subjective:
Earlier today patient asked for morphine as she feels uncomfortable.
Review of Systems
Cardiopulmonary: Dyspnea and Cough
Objective Data
Data Reviewed
Vital Signs / I&O / Oxygen:
Vital Signs
Temp Pulse Resp BP Pulse Ox
97.5 F 104 24 154/68 95
08/15/25 08:26 08/15/25 07:12 08/15/25 07:12 08/15/25 06:00 08/15/25 07:12
Intake and Output
08/14/25 08/15/25 08/16/25
05:59 06:59 06:59
Intake Total 1969 / 1969
Output Total 1674 / 1674
Balance 295 / 295
SaO2 95
Nasal Cannula flow liters per 3
minute
Physical Exam
General: Respiratory Distress (Mild, appears anxious.)
HEENT: Normocephalic
Cardiovascular: S1-S2
Respiratory: Wheeze
GI: Soft and Non Distended
Neurology: Awake and Alert
Skin: Warm
Labs/Micro/Reports
Lab Data
08/15/25 03:13
08/15/25 03:13
Microbiology
08/14/25 21:47 Nose Nasal Screen MRSA (PCR) - Final
MRSA not detected - performed by PCR methodology.
08/14/25 14:30 Urine Legionella Urinary Antigen - Final
Negative for Legionella pneumophila Serogroup 1 antigen.
A negative result does not rule out the possiblity of
Legionella infection due to other serogroups or species of
Legionella. Clinical correlation is recommended.
08/14/25 14:30 Urine Streptococcus pneumoniae Antigen (M - Final
Negative for Streptococcus pneumoniae antigen.
A negative result does not exclude infection with
Streptococcus pneumoniae. Clinical correlation is
recommended.
08/14/25 08:10 Nasal Swab Influenza Types A & B (LUAN) - Final
Negative for Influenza A & B, NAAT
Negative results must be combined with clinical observations
and patient history.
Nucleic Acid Amplification test (NAAT)performed on the
[employer] platform.
[2025-08-15] MEDS: DILAUDID 0.25 MG IV (10:28)
[2025-08-15 10:37] VITALS: BP 159/74
--- NOTE | 2025-08-15 11:20 | WOUNDNOTE ---
WO RN note: Patient admitted with pneumonia
See H&P for complete history.
PMH: COPD, CVA,HTN, PI to heels.
Wound Location and type/assessment: Patient admitted with: B/L heel unstageable PI, L>R. Both Dry brown eschar, painful upon touch. Patient turned with assist of nurse, Sacrum intact, faint scab on lower back.
Appetite: Poor.
Pressure redistribution devices in place: On Air mattress. Offloading fiber filled boots applied to both heels.
Plan: Betadine and dry dressing applied to heels. Will confirm orders with hospitalist and updated nurse.
Updated care plan and will follow as needed, goals of care being discussed with family.
Note to case management of equipment requested for discharge: TBD.
--- NOTE | 2025-08-15 11:31 | W.PN.NEPH.PH ---
Today's Communication / Plan
-
Half-normal saline
Assessment/Plan
-
Assessment
FILIBERTO
CKD 3B, 1.7 baseline
Hypertension
Hyperkalemia
Metabolic acidosis
COPD on chronic oxygen 2 L
DVT on Xarelto
Right upper lobe lung mass
Urinary retention
Plan
Empiric antibiotics per primary team
IV fluids with saline
Maintain Adams catheter
Creatinine down to 3.1.
Nonoliguric.
Will start half-normal saline with sodium increasing to 145And hypertension
-
-
Date of Service: August 15, 2025
CC / HPI / ROS
-
Chief Complaint:
Shortness of breath
History of Present Illness:
Acute on chronic kidney disease urinary retention/pneumonia
Review of Systems:
No chest pain nonoliguric
Labs
-
Labs:
WBC 15.4 10^3/uL (4.8-10.8) H 08/15/25 03:13
RBC 3.76 10^6/uL (4.20-5.40) L 08/15/25 03:13
Hgb 10.7 g/dL (12.0-16.0) L 08/15/25 03:13
Hct 34.2 % (37.0-47.0) L 08/15/25 03:13
Plt Count 371 10^3/uL (130-400) 08/15/25 03:13
Sodium 145 mmol/L (135-145) 08/15/25 03:13
Potassium 5.2 mmol/L (3.5-5.1) H 08/15/25 03:13
Potassium 5.3 mmol/L (3.5-5.1) H 08/15/25 03:13
Chloride 117 mmol/L (98-107) H 08/15/25 03:13
Carbon Dioxide 18 mmol/L (22-30) L 08/15/25 03:13
BUN 85 mg/dl (7-17) H 08/15/25 03:13
Creatinine 3.1 mg/dL (0.6-1.0) H 08/15/25 03:13
eGFR 15.40 08/15/25 03:13
Glucose 87 mg/dl (70-99) 08/15/25 03:13
Calcium 9.5 mg/dl (8.4-10.2) 08/15/25 03:13
Albumin 2.8 g/dl (3.5-5.0) L 08/15/25 03:13
Physical Exam
-
Vital Signs:
Vital Signs
Temp Pulse Resp BP Pulse Ox
97.5 F 102 22 159/74 93
08/15/25 08:26 08/15/25 10:37 08/15/25 10:37 08/15/25 10:37 08/15/25 10:37
Respiratory:: Bilateral: Coarse
Lung Excursion:: Normal
Abdomen:: Soft
Bowel Sounds:: Normal
Extremity Edema:: None: Bilateral:
Adams Catheter: Yes
[2025-08-15 11:56] VITALS: BMI 18.5
[2025-08-15 12:00] VITALS: BP 167/69
[2025-08-15] MEDS: VALIUM INJECTION 2 MG IV (13:13)
[2025-08-15] MEDS: NSS IV (13:16)
--- NOTE | 2025-08-15 13:33 | PTCARENOTE ---
Received this am, restless and confused. Can occasionally say something coherent. Freq intermittent jerky movements noted- not today new but new this past week. Pulled out IV site, and touching buttock with feces - bilateral mitt order obtained
and inititaed. O2 3L NC 94%-96% ST on tele bp 130s-160s/ 70s. US LE completed this am, Wound care assessment completed. Right wrist fiberglass cast. right arm is +1 non pitting edema- attempts at keeping on pillow are none- pt is too restless.
Adams intact- good urine output. IVF at 70ml/hr. NPO status maintained as per speech. NO PO meds given - provider aware. IV Dilaudid order obtained for comfort with some relief.
Currently, family at bedside want to initiate comfort measures/ hospice- provider made aware and Jailyn here - IV Valium order received and given. Immediate response noted. Pt turned/ changed and made comfortable. Hospice sign on.
--- NOTE | 2025-08-15 13:43 | W.DCSUMMARY ---
Discharge Summary
Discharge Data
Date of Admission: 08/14/25
Date of Discharge: 08/15/25
Total time spent discharging patient (in min): 38
-
Pending Results: No
Hospital Course
70 y/o female with past medical history of chronic COPD on baseline 2 L of oxygen therapy, DVT on Xarelto for anticoagulation, hypertension on a multidrug regimen, peripheral arterial disease and status post fall with right hip fracture 06/02/2025
(status post right hip ORIF), presented with cough and shortness of breath. She was diagnosed with a lung mass ~2 months ago, and had not had outpatient follow-up for biopsy of mass. Patient then had a second fall, and injured her right wrist.
Patient recently developed increased wheezing, SOB and cough. Patient's family stated that patient had been tremulous also over the last couple weeks. Her condition had also been deteriorating and she has been getting more deconditioned. She was
found to have mild interstitial changes on chest x-ray. Patient was started on intravenous steroids, antibiotics and bronchodilators. Patient was admitted to the IMU. Patient was noted to have poor prognosis. Case was discussed with patient's family
and they agreed with hospice on 08/15/25.
Discharge Plan
-
Patient Disposition: Hospice - Inpatient
Discharge Diagnosis/Procedures: Possible COPD exacerbation
Wheezing
Intermittent shortness of breath, presently she denies
Mild interstitial changes on chest x-ray
Right upper lobe mass-large right upper lobe new since 2022
Right upper lobe mass new since 2022
Right proximal femoral neck fracture secondary to mechanical trauma and osteoporosis in May 2025
Aspiration syndrome secondary to esophageal food impaction
Tobacco use disorder
Chronic hyponatremia
Essential hypertension
CAD/PAD
Right-sided carotid bruit history PAD/CAD
PAD s/p Right Iliac Stent and Right Femoral Endarterectomy
HLD
Neuropathy
GERD
Anxiety/depression/insomnia
Alcohol use disorder without evidence of withdrawal
Cognitive impairment
History of Constipation
Protein calorie malnutrition
Recent back pain
Condition: Serious
Diet: As tolerated
Referrals:
Brenda Machuca DO [Family Provider, General]
Prescriptions:
Discontinued
ipratropium-albuterol 0.5 mg-3 mg(2.5 mg base)/3 mL Solution For Nebulization
3 ml INHALATION R TID
pantoprazole 40 mg Tablet,Delayed Release (Dr/Ec)
40 mg PO DAILY
budesonide 0.5 mg/2 mL Suspension For Nebulization
0.5 mg INHALATION R DAILY
rosuvastatin 20 mg Tablet
20 mg PO DAILY
acetaminophen [Tylenol] 325 mg Tablet
650 mg PO Q6HPRN PRN (Reason: mild pain/fever)
nebivolol 10 mg Tablet
10 mg PO DAILY Qty: 60 0RF
nicotine 14 mg/24 hr Patch 24 Hour
14 mg transdermal DAILY Qty: 10 0RF
lorazepam 1 mg tablet
1 mg PO HS Qty: 14 0RF
ferrous sulfate 325 mg (65 mg iron) Tablet
325 mg PO DAILY
lidocaine 5 % Adhesive Patch,Medicated
1 patch TOPICAL DAILY
Rx Instructions:
apply to R trapezius one time a day, on in am off @ HS
guanfacine 1 mg tablet
1 mg PO HS
candesartan 32 mg tablet
32 mg PO DAILY
sennosides-docusate sodium [Senna Plus] 8.6-50 mg Tablet
2 tab-cap PO HS
capsaicin 0.075 % Cream
1 applic TOPICAL TID
Rx Instructions:
apply to lower legs and feet
torsemide 5 mg Tablet
5 mg PO DAILY
tiotropium bromide 18 mcg Capsule, W/Inhalation Device
1 cap INHALATION DAILY
pregabalin [Lyrica] 75 mg capsule
75 mg PO DAILY@0800
Rx Instructions:
give with 50mg = 125mg
pregabalin [Lyrica] 75 mg capsule
150 mg PO HS
rivaroxaban [Xarelto] 2.5 mg tablet
2.5 mg PO BID
loperamide 2 mg Tablet
2 mg PO Q4H PRN (Reason: loose stools)
magnesium hydroxide [Milk of Magnesia] 400 mg/5 mL Suspension
30 ml PO DAILY PRN (Reason: constipation, give on day 4 of no BM)
bisacodyl [Dulcolax (bisacodyl)] 10 mg Suppository
10 mg ME DAILY PRN (Reason: if MOM ineffective give on day 5 of no BM)
Fleet Enema 19-7 gram/118 mL Enema
118 ml ME DAILYPRN PRN (Reason: if dulcolax ineffective give on day 6 of no BM)
naloxone [Narcan] 4 mg/actuation [place],Non-Aerosol
1 spray INTRANASAL Q3MPRN PRN (Reason: for opiod suspected overdose)
hydralazine 25 mg tablet
25 mg PO TID
pregabalin 50 mg capsule
50 mg PO DAILY@0800
Rx Instructions:
give with 75mg = 125mg
Discharge Orders:
Discharge Patient (As Directed); Ordered 08/15/25
Ordered By: Jayjay Villaseñor
Discharge Date and Time
Print Language: GERMAN
--- NOTE | 2025-08-15 13:54 | HOSPNOTE ---
Spoke with son and spouse and patient will be admitted inpatient hospice for agitation and shortness of breath. Admissions was called and CM sent referral. Patient will be moved to [facility] when a bed is available. Consents are signed. Hospice chart
will be entered. Attending aware of plan. Patient will be seen daily.
--- NOTE | 2025-08-15 14:00 | CM ---
F/U: Hospitalist spoke to the family who is agreeable to Hospice then Jailyn from [facility] had consents signed. PLAN: Inpatient Hospice.
--- NOTE | 2025-08-15 14:09 | PTOTSP ---
Speech Therapy Evaluation:
Pt with acute on chronic risk factors of dysphagia including RUL mass, COPD, cigarette smoking, and significant deconditioning. Pt with known esophageal hx including food impaction, esophagitis, schatzkis ring, patulous esophagus, and possible
achalasia. Evaluation limited due to mentation. Pt accepted small amounts of thin liquids via pipetted straw. No s/sx of aspiration, however trace amount administered, therefore unsure if pt would be responsive to airway invasion. CXR without PNA
and most recent VSE without aspiration. Suspect main barrier to safe PO intake is mentation.
Recommend:
1. NPO
2. Meds non oral
3. Oral care 3x/daily
4. Not appropriate for ARHP
5. WEIGHT LOSS CONSULTANT to follow to assess candidacy for diet initiation pending goc.
== END 2025-08-15 14:01 | disposition hospice, inpatient (51) | DRG 190 ==
LOC: IMU 14:15
PROVIDERS: Registered Nurse; ADMITTING PHYSICIAN Hospitalist; CONSULT PHYSICIAN Internal Medicine Critical Care Medicine; CONSULT PHYSICIAN Specialist; EMERGENCY PHYSICIAN Student in an Organized Health Care Education/Training Program; FAMILY PHYSICIAN Family Medicine
DX: J44.1 Chronic obstructive pulmonary disease with (acute) exacerbation (principal); G92.8 Other toxic encephalopathy; J96.01 Acute respiratory failure with hypoxia; N17.9 Acute kidney failure, unspecified; E87.20 Acidosis, unspecified; E46 Unspecified protein-calorie malnutrition; I47.10 Supraventricular tachycardia, unspecified; Z68.1 Body mass index [BMI] 19.9 or less, adult; E78.00 Pure hypercholesterolemia, unspecified; I12.9 Hypertensive chronic kidney disease with stage 1 through stage 4 chronic kidney disease, or unspecified chronic kidney disease; N18.32 Chronic kidney disease, stage 3b; I25.10 Atherosclerotic heart disease of native coronary artery without angina pectoris; E87.5 Hyperkalemia; F17.210 Nicotine dependence, cigarettes, uncomplicated; K21.00 Gastro-esophageal reflux disease with esophagitis, without bleeding; F41.9 Anxiety disorder, unspecified; F32.A Depression, unspecified; R33.9 Retention of urine, unspecified; G47.00 Insomnia, unspecified; K59.00 Constipation, unspecified; I73.9 Peripheral vascular disease, unspecified; G62.9 Polyneuropathy, unspecified; R29.6 Repeated falls; I35.1 Nonrheumatic aortic (valve) insufficiency; F10.10 Alcohol abuse, uncomplicated; R41.89 Other symptoms and signs involving cognitive functions and awareness; K22.2 Esophageal obstruction; M81.0 Age-related osteoporosis without current pathological fracture; Z66 Do not resuscitate; Z60.2 Problems related to living alone; Z96.1 Presence of intraocular lens; Z99.81 Dependence on supplemental oxygen; Z86.718 Personal history of other venous thrombosis and embolism; Z79.01 Long term (current) use of anticoagulants; Z86.73 Personal history of transient ischemic attack (TIA), and cerebral infarction without residual deficits; Z95.828 Presence of other vascular implants and grafts; Z98.41 Cataract extraction status, right eye; Z79.51 Long term (current) use of inhaled steroids; Z79.899 Other long term (current) drug therapy; Z98.42 Cataract extraction status, left eye; Z88.0 Allergy status to penicillin; Z88.8 Allergy status to other drugs, medicaments and biological substances; Z88.1 Allergy status to other antibiotic agents; Z91.041 Radiographic dye allergy status; Z11.52 Encounter for screening for COVID-19; Z91.81 History of falling; Z82.3 Family history of stroke
CPT/HCPCS: 71045; 80048; 80053; 80202; 81003; 81015; 82140; 82962; 83735; 84132; 84484; 85025; 85027; 87070; 87449; 87502; 87641; 87811; 87899; 92610; 93005; 93970; 94640; 96374; 96375; 99285

== ENCOUNTER 2025-08-15 14:06 | Inpatient (IN) | payer OTHER, SELFPAY ==
--- NOTE | 2025-08-15 13:58 | ADM.HSP ---
Admission - Hospice
History of Present Illness
70 y/o female with past medical history of chronic COPD on baseline 2 L of oxygen therapy, DVT on Xarelto for anticoagulation, hypertension on a multidrug regimen, peripheral arterial disease and status post fall with right hip fracture 06/02/2025
(status post right hip ORIF), presented with cough and shortness of breath. She was diagnosed with a lung mass ~2 months ago, and had not had outpatient follow-up for biopsy of mass. Patient then had a second fall, and injured her right wrist.
Patient recently developed increased wheezing, SOB and cough. Patient's family stated that patient had been tremulous also over the last couple weeks. Her condition had also been deteriorating and she has been getting more deconditioned. She was
found to have mild interstitial changes on chest x-ray. Patient was started on intravenous steroids, antibiotics and bronchodilators. Patient was admitted to the IMU. Patient was noted to have poor prognosis. Case was discussed with patient's family
and they agreed with hospice on 08/15/25, and patient is now being admitted to inpatient hospice.
Reason for Hospice Admission
Lung mass, patient declined chemo, significant decline, poor prognosis
Review of Systems
Unable to obtain full review of systems at this time due to: Unresponsive
History Source: Family
Physical Exam
General: Appears in Distress and Pain
Respiratory: Wheezes and Rales
Cardiology: Regular Rhythm and S1/S2
GI: Soft, Nontender and Normal Bowel Sounds
Musculoskeletal: No Cyanosis
Skin: Warm and Dry
Neuro: Tremors
Psych: Confused and Agitated
Assessment/Medication Plan
Generic Name Dose Route Start Last Admin
Trade Name Freq PRN Reason Stop Dose Admin
Glycopyrrolate 0.2 mg 08/15/25 13:51
Glycopyrrolate 0.2 Mg/Ml Vial IV 09/12/25 13:50
Q4HPRN PRN
excessive secretions
Haloperidol Lactate 0.5 mg 08/15/25 13:51
Haloperidol Oral Concentrate (10 Mg/5 Ml) Cup SL 09/12/25 13:50
Q4HPRN PRN
agitation/terminal delirium
Haloperidol Lactate 2 mg 08/15/25 13:51
Haloperidol 5 Mg/Ml 1 Ml Vial IV 09/12/25 13:50
Q4HPRN PRN
agitation/terminal delirium
Hyoscyamine Sulfate 0.125 mg 08/15/25 13:51
Hyoscyamine Sulfate 0.125 Mg/Ml In Oral Syringe SL 09/12/25 13:50
Q4HPRN PRN
excessive secretions
Lorazepam 1 mg 08/15/25 13:51
Lorazepam 2 Mg/Ml Vial IV 09/12/25 13:50
Q2HPRN PRN
anxiety
Protocol
Lorazepam 2 mg 08/15/25 13:51
Lorazepam 2 Mg/Ml Vial IV 09/12/25 13:50
Q1HPRN PRN
seizure
Protocol
Ondansetron HCl 4 mg 08/15/25 13:51
Ondansetron 4 Mg/2 Ml Vial IV 09/12/25 13:50
Q6HPRN PRN
nausea/vomiting
Prochlorperazine Edisylate 5 mg 08/15/25 13:51
Prochlorperazine 10 Mg/2 Ml Vial IV 09/12/25 13:50
Q6HPRN PRN
nausea/vomiting
[2025-08-15] MEDS: VALIUM INJECTION 2 MG IV ×2 (14:21→17:33)
[2025-08-15 15:00] VITALS: BP 150/78
--- NOTE | 2025-08-15 15:36 | HOSPNOTE ---
Patient was admitted inpatient hospice for management of agitation and shortness of breath requiring IV medications. Patient will move to [facility] and will be seen daily by hospice.
[2025-08-15] MEDS: DILAUDID 0.5 MG IV ×3 (15:57→20:41)
[2025-08-15] MEDS: TYLENOL/FEVERALL 650 MG RECTAL (19:42)
--- NOTE | 2025-08-15 20:31 | PTCARENOTE ---
Pt incontinent of moderate formed BM. Pt bathed, linens changed. Oral care, mouth moisturizer, lip care provided. 800ml yellow urine emptied from silvestre. Pt aaox1, very restless/SOB. 0.5mg IV dilaudid given for dyspnea. Report given to Liv STEWART on
[address]. Pt transferred to Rm [id number].
[2025-08-15 20:44] VITALS: BP 176/88
[2025-08-16] MEDS: VALIUM INJECTION 2 MG IV ×3 (04:49→21:42)
[2025-08-16] MEDS: DILAUDID 0.5 MG IV ×7 (05:14→22:44)
[2025-08-16 07:43] VITALS: BP 192/100
[2025-08-16] MEDS: ROBINUL 0.2 MG IV (09:45)
--- NOTE | 2025-08-16 10:06 | HOSPNOTE ---
Patient was extremely anxious when I arrived patient was medicated with valium and robinol for increased secretions. Patient was washed and repositioned mouth care performed and at the end of the visit patient was resting comfortably. Patient
continues to meet inpatient hospice criteria for agitation and pain. Patient will be seen daily.
--- NOTE | 2025-08-16 10:25 | W.PN.HOSP.TC ---
Today's Communication/Plan
-
-Continue hospice care and comfort medications
Assessment / Plan
Assessment / Plan
Physical Exam
General: Appears in Distress
HEENT: Normocephalic
Respiratory: Wheezes and Rales
Cardiac: S1/S2 and Regular Rhythm
GI: Soft, Non Tender and Normal Bowel Sounds
Musculoskeletal: No Cyanosis and No Edema
Skin: Warm and Dry
Neuro: Tremors
Psych: Confused
Assessment/Plan
Possible COPD exacerbation
Wheezing
Intermittent shortness of breath, presently she denies
Mild interstitial changes on chest x-ray
Right upper lobe mass-large right upper lobe new since 2022
Right upper lobe mass new since 2022
Right proximal femoral neck fracture secondary to mechanical trauma and osteoporosis in May 2025
Aspiration syndrome secondary to esophageal food impaction
Tobacco use disorder
Chronic hyponatremia
Essential hypertension
CAD/PAD
Right-sided carotid bruit history PAD/CAD
PAD s/p Right Iliac Stent and Right Femoral Endarterectomy
HLD
Neuropathy
GERD
Anxiety/depression/insomnia
Alcohol use disorder without evidence of withdrawal
Cognitive impairment
History of Constipation
Protein calorie malnutrition
Recent back pain
-Continue hospice care and comfort medications
Anticipated Discharge: > 48 hours
Subjective/Interval History
-
Date of Service: August 16, 2025
Patient was seen and examined. She appeared in mild distress, pain and anxiety medications being given and to be increased per protocol.
Objective Data
-
Vital Signs:
Vital Signs
Temp Pulse Resp BP Pulse Ox
97.7 F 108 20 192/100 87
08/16/25 07:43 08/16/25 07:43 08/16/25 07:43 08/16/25 07:43 08/16/25 07:43
I&O
08/15/25 08/16/25 08/17/25
06:59 06:59 06:59
Output Total 1350 / 1350
Balance -1350 / -1350
--- NOTE | 2025-08-16 15:37 | CM ---
Pt is admitted to inpatient hospice care with hospice GIP.
CM is available for emotional support.
[2025-08-16 23:00] VITALS: BP 157/81
[2025-08-17] MEDS: DILAUDID 0.5 MG IV ×3 (02:24→10:18)
[2025-08-17 07:00] VITALS: BP 96/59
--- NOTE | 2025-08-17 11:56 | W.PN.DEATH ---
Pronouncement of
-
Called to see patient to pronounce.
No spontaneous heart tones or respirations noted.
Patient not responsive to verbal stimuli.
Patient is pronounced .
Time of : 11:55
Date of : 08/17/25
Cause of : Acute Hypoxic Respiratory Failure
Family Notified: Yes
--- NOTE | 2025-08-17 12:21 | PTCARENOTE ---
Pt passed [id number] with family friend at bedside; Dr. Villaseñor here to pronounce pt, hospice community liaison to contact family.
--- NOTE | 2025-08-17 12:37 | HOSPNOTE ---
Spoke to son and daughter in law they will be headed to the hospital to see patient. arrangements have been completed and the family will call home when they are leaving the hospital.
== END 2025-08-17 12:00 | disposition expired | DRG 951 ==
LOC: 2 NORTH 14:06
PROVIDERS: ADMITTING PHYSICIAN Hospitalist
DX: Z51.5 Encounter for palliative care (principal); J96.01 Acute respiratory failure with hypoxia